=== PATIENT | female | born 1940 | race Caucasian/White ===

== ENCOUNTER 2017-03-21 07:39 | Inpatient (IN) ==
[2017-03-21] MEDS ORDERED: *HR* FentaNYL (PF) 100 MCG/2 ML VIAL ONE (08:04)
[2017-03-21] MEDS ORDERED: Dexamethasone 4 MG/ML VIAL ONE (08:04)
[2017-03-21] MEDS ORDERED: Lidocaine -MPF 2% 2 ML VIAL ONE (08:04)
[2017-03-21] MEDS ORDERED: Ondansetron 4 MG/2 ML VIAL ONE (08:04)
[2017-03-21] MEDS ORDERED: *HR* Succinylcholine 200 MG/10 ML VIAL IVP ONE (08:04)
[2017-03-21] MEDS ORDERED: *HR* Propofol 200 MG/20 ML VIAL IVP ONE (08:04)
[2017-03-21] MEDS ORDERED: *HR* Midazolam HCl 2 MG/2 ML VIAL ONE (08:04)
--- NOTE | 2017-03-21 08:19 | Anesthesia Evaluation PreOp ---
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: Denies Any Significant HX, Other (Bilat neuropathy (feet)) Other Medical History: Renal (CRD, Left Renal Mass), Diabetes Type II, Thyroid ( Hypothyroid), Other (Breast CA) Anesthesia History: No Prior Anesthetic Complications, Past Anesthesia (RCR, CTR , Tubal, mastectomy, trigger finger, nasal sx, skin, bx, heart ablation, D7C, Left THR, renal Bx) : No Alcohol Use: none Drug use: none Medications and Allergies Oxybutynin Chloride [Oxybutynin Chloride ER] 10 mg PO QPM 06/30/15 [History] Amiodarone [Cordarone] 200 mg PO DAILY tablet 07/03/15 [Rx] Atorvastatin [Lipitor] 40 mg PO HS tablet 07/03/15 [Rx] Levothyroxine [Synthroid] 75 mcg PO 0630 tablet 07/03/15 [Rx] Losartan [Cozaar] 100 mg PO DAILY #30 tablet 07/03/15 [Rx] Aspirin Enteric Coated [Aspirin EC] 81 mg PO DAILY 08/08/15 [History] Furosemide [Lasix] 40 mg PO HS 09/26/15 [History] Potassium Chloride [Klor-Con Sprinkle] 10 meq PO BID 09/26/15 [History] Calcium Citrate/Vitamin D3 [Calcium Citrate-Vit D3 Tablet] 1 each PO DAILY 03/31 [History] Cholecalciferol (Vitamin D3) [Vitamin D3] 2,000 unit PO DAILY 03/31/16 [History] Clindamycin HCl [Cleocin HCl] 300 mg PO DAILY 03/31/16 [History] Glucosamine Sulfate Dipot Chlr [Glucosamine] 500 mg PO DAILY 03/31/16 [History] Vit C/Vit E/Lutein/Min/[place]-3 [Ocuvite Softgel] 1 cap PO DAILY 03/31/16 [ History] Docusate [Colace] 100 mg PO BID #30 capsule 07/25/16 [Rx] Ferrous Sulfate 325 mg PO BIDWM #60 tablet 07/25/16 [Rx] Metoprolol [Lopressor] 50 mg PO BID #60 tablet 07/25/16 [Rx] OxyCODONE Immed Rel [Roxicodone 5 MG] 5 mg PO Q4HR PRN #60 tablet 07/26/16 [Rx] Rivaroxaban [Xarelto] 15 mg PO 1700 #30 tablet 07/26/16 [Rx] Allergies No Known Allergies Allergy (Verified 07/18/16 20:48) - Meds/Allergy Pre-op Review Medications Reviewed: Yes Allergies Reviewed: Yes Beta Blockers on Current Med List: Yes If Beta Blockers taken, Date/Time (Last Dose taken): 07:00 03/21/2017 Anesthesia Results - Labs Laboratory Tests 03/04/17 03/04/17 03/04/17 11:43 11:43 11:43 WBC 8.6 Hgb 12.7 Hct 38.7 Plt Count 268 INR 1.2 Sodium 141 Potassium 3.9 Chloride 104 Carbon Dioxide 22 BUN 35 H Creatinine 1.56 H - Imaging EKG: image reviewed (SB, prolonged QT) Anesthesia Exam O2 Sat Height 1.57 m Height 1.57 m Weight 99.79 kg Weight 99.79 kg O2 Sat by Pulse Oximetry 96 Vital Signs Temp Pulse Resp BP Pulse Ox 97.5 F L 62 18 135/66 96 03/21/17 08:00 03/21/17 08:00 03/21/17 08:00 03/21/17 08:00 03/21/17 08:00 Height: 5'2'' Weight: 220# NPO (# of Hours): > 8 hrs Pain Scale: 0 Pain Scale Used: Numeric (1 - 10) - HEENT Pupil (Motor): Pupils equal, EOMI Mallampati: III Teeth: Edentulous Oral Opening: Greater than 3 - CHAIR UPHOLSTERER LOC: Oriented CHAIR UPHOLSTERER Motor: Normal RUE, Normal LUE, Normal RLE, Normal LLE, Normal Face CHAIR UPHOLSTERER Sensory: Normal: RUE, LUE, RLE, LLE, Face - Cardiac Rhythm: Regular Murmur: None JVD: No Carotid Bruit: No - Pulmonary Breath Sounds: bilateral Clear Respiratory Effort: Symmetrical Anesthesia Assess/Plan ASA Score: 4 Modified [place] Scale for Level of Consciousness: Cooperative, oriented, and tranquil Anesthetic Plan: General Autologous Blood: Yes Monitoring Plan: Standard Monitors, A-Line Recovery Plan: PACU
[2017-03-21] MEDS ORDERED: CeFAZolin Pre 2,000 MG/100 ML 2,000 MG/100 ML BAG IVPB ONE (08:58)
[2017-03-21] MEDS ORDERED: 0.9 % Sodium Chloride 500 ML IVC SCH (09:00)
--- NOTE | 2017-03-21 09:06 | History & Physical Report ---
Date of Encounter: 03/21/17 Time of Encounter: 09:06 24 Hour HP Update - Instructions Instructions: If the History and Physical is less than 30 days old and was completed prior to A.M. admission and or procedure and has NOT been updated on calendar day of procedure please complete this update prior to performing procedure. - Update Patient reports changes in Medical Condition: No Changes in examination, assessment, or condition: No Changes in Medication: No Preop tests/diagnostics Reviewed: Yes Surgery Remains Indicated: Yes Consent for Planned Operative Procedure(s) Verified: Yes - Pre-Operative Checklist Preoperative Checklist Indicated: Yes Prophylactic Antibiotic Ordered: Yes Home Medications Include Beta Sedrick: Yes Is VTE Prophylaxis Indicated?: Yes
[2017-03-21] MEDS ORDERED: *HR* Rocuronium Bromide 50 MG/5 ML VIAL ONE (10:43)
[2017-03-21] MEDS ORDERED: Ondansetron 4 MG/2 ML VIAL IVP ONE (11:40)
[2017-03-21] MEDS ORDERED: *HR* Midazolam HCl 2 MG/2 ML VIAL IVP PRN (11:40)
[2017-03-21] MEDS ORDERED: *HR* Morphine 2 MG/ML SYRINGE IVP PRN (11:40)
[2017-03-21] MEDS ORDERED: *HR* Labetalol 100 MG/20 ML MDV IVP PRN (11:40)
[2017-03-21] MEDS ORDERED: *HR* HYDROmorphone (PF) 1 MG/ML SYRINGE IVP PRN (11:40)
[2017-03-21] MEDS ORDERED: *HR* HYDROmorphone 2 MG/ML SYRINGE ONE (13:09)
--- NOTE | 2017-03-21 13:52 | Operative Note ---
Date of procedure: 03/21/17 Pre-op diagnosis: Left renal mass Post-op diagnosis: same Procedure: Left hand-assisted laparoscopic nephrectomy. Implants: 16 Green[place]ic Watters catheter. Complications: Splenic capsule tear. Anesthesia: PAPO Surgeon: Saturnino Anguiano Estimated blood loss (cc): 100 Specimen: left kidney Condition: stable Disposition: PACU Procedure in Detail: Indications: Kimber is a 76-year-old woman who has a left renal mass. This showed enhancement on a CT scan. She elected to undergo a left hand-assisted laparoscopic radical nephrectomy. She was aware of the risks of the surgery which include but are not limited to bleeding, infection, injury to other structures, need for further procedures, risk of benign disease, risk of renal insufficiency, DVT, PE, and the risk of anesthesia. She is willing to proceed. Procedure: After informed consent was obtained the patient was brought back to the operating room and placed in the supine position. A timeout was performed. Gen. anesthesia was then administered and an endotracheal tube was placed. Appropriate IV access was obtained. A Watters catheter was placed. She was then placed in the flank position. Her left side was up. All pressure points were padded. She was well secured to the table. She was then prepped and draped in the usual sterile fashion. A 8 cm subcostal incision was then made. Subcutaneous tissues were dissected down using cautery. The fascia was incised using cautery. The muscle layers were dissected down until the peritoneum was identified. It was grasped and opened purposefully using Metzenbaum scissors. Once I entered into the peritoneum there appeared to be no evidence of bowel injury. The rest of the peritoneum was opened using electrocautery. I was able to place my hand into the wound. The GelPort was then inserted. Insufflation was then achieved. We then marked out our incision lateral and superior to the umbilicus. An incision was made and a 12 mm port was placed. Another incision was made lateral to this and another 12 mm port was placed. The bowel was reflected off the kidney along the white line of Toldt. Once the bowel was reflected medially I dissected the lower pole of the kidney identified the ureter. This was reflected anteriorly and the gonadal vein was then placed medial. Dissection was then taken superiorly to the hilum. The lower pole artery was identified and this was controlled with the vascular stapler. A second renal artery was identified superior to the renal vein and this was taken with the stapler as well. The renal vein was then taken with the stapler. The lateral attachments of the kidney were then dissected off using the Harmonic scalpel. The superior attachments to the kidney were dissected using the Harmonic scalpel as well. During this portion appeared that the splenic capsule tear had occurred. I placed a lap pad along the spleen and completed the removal of the kidney. The kidney was taken out through the wound protector. There appeared to be in minimal amount of bleeding from the splenic capsule. I placed FloSeal around the tear and then covered it using a Surgicel. Hemostasis appeared to be adequate. The pressure was brought down to 5 mmHg. No further significant bleeding was noted. The hilum was well secured. Using the Endo Close device the 212 mm ports were closed using an 0 Vicryl suture. The ports removed as was the GelPort. The peritoneal incision was then closed in a running fashion using an 0 Vicryl suture. The wound was irrigated. The fascia was closed in an interrupted fashion using 0 Vicryl suture. The wound was irrigated again. Alisha's layer was closed in a running fashion using 3-0 Vicryl suture. The skin was closed using a 4-0 Monocryl suture in a subcutaneous fashion. The port sites were closed using 4-0 Monocryl as well. The abdomen was then washed and dried and Dermabond was applied to the wounds. The patient was then awakened from general anesthesia and brought to recovery room in good condition. All sponge, needle, and instrument counts were correct.
[2017-03-21] MEDS ORDERED: Albuterol 2.5 MG/3 ML NEBULIZER ONE (15:27)
[2017-03-21] MEDS ORDERED: Albuterol 2.5 MG/3 ML NEBULIZER IH ONE (15:29)
--- NOTE | 2017-03-21 15:54 | Anesthesia Evaluation Post Op ---
Date of Encounter: 03/21/17 Time of Encounter: 16:00 - Vital Signs Vital Signs: Selected Entries 03/21/17 15:39 Pulse Rate 72 Respiratory Rate 18 Blood Pressure 153/85 O2 Sat by Pulse Oximetry 91 Oxygen Flow Rate (LPM) 4 - Lungs Lungs: Clear Ascult./Percussion - Airway Airway: Non-obstructed - Cardiovascular Regular Rate - Mental Status Mental Status: Sedated (Drowsy, but answers questions appropriately.) - Pain Pain Scale: 3 Pain Scale used: Numeric (1 - 10) - Nausea Vomiting Nausea Vomiting: Not Present - Hydration Hydration: NPO - Discharge PostOp Status: Transfer Patient to floor (Patient sleepy, but arousable. Maintaining O2 sats above 90-92% on 4 L/O2. Had atelectasis on pre op x ray. Will require spirometry and aggressive pulmonary toilet postoperatively.)
[2017-03-21] MEDS ORDERED: Naloxone 0.4 MG/ML INJ IVP PRN (16:13)
[2017-03-21] MEDS ORDERED: *HR* Promethazine 25 MG/ML VIAL IV PRN (16:13)
[2017-03-21] MEDS ORDERED: Ondansetron 4 MG/2 ML VIAL IVP PRN (16:13)
[2017-03-21] MEDS ORDERED: Promethazine 25 MG in 0.9 % Sodium Chloride 50 ML IVPB PRN (16:19)
[2017-03-21] MEDS: *HR* HYDROmorphone (PF) 1 MG/ML SYRINGE IVP PRN ×2 (17:11→20:11)
[2017-03-21] MEDS: 0.9 % Sodium Chloride 1,000 ML IVC SCH (17:12)
[2017-03-21] MEDS: ceFAZolin 2,000 MG in D5% in Water 100 ML IVPB SCH (20:10)
[2017-03-22] MEDS: 0.9 % Sodium Chloride 1,000 ML IVC SCH (01:47)
[2017-03-22] MEDS: ceFAZolin 2,000 MG in D5% in Water 100 ML IVPB SCH (01:47)
[2017-03-22] MEDS: Acetaminophen 325 MG TABLET PO PRN (01:51)
[2017-03-22 03:45] LABS: Basophils % 0.1 %; Hemoglobin 8.7 g/dL (11.5-15.4); Immature Granulocytes % 0.6 % (0-4); Lymphocytes # 0.9 K/mcL (0.6-4.6); Lymphocytes % 8.4 %; Mean Corpuscular HGB Conc 32.2 g/dL (31.6-35.5); Mean Corpuscular Hemoglobin 32.2 pg (28.0-33.3); Mean Platelet Volume 9.8 fL (9.4-12.4); Monocytes # 1.2 K/mcL (0.0-1.3); Monocytes % 10.8 %; Neutrophils # 8.6 K/mcL (1.6-8.9); Platelet Count 228 K/mcL (140-400); Red Cell Distribution Width 14.3 % (11.5-14.5); Segmented Neutrophils % 80.1 %
[2017-03-22 03:57] LABS: Potassium 5.1 mEq/L (3.5-4.5)
[2017-03-22] MEDS ORDERED: Metoclopramide 10 MG in 0.9 % Sodium Chloride 50 ML IVPB PRN (07:48)
[2017-03-22] MEDS ORDERED: Promethazine 25 MG in 0.9 % Sodium Chloride 50 ML IVPB PRN (07:51)
[2017-03-22] MEDS ORDERED: 0.9 % Sodium Chloride 500 ML IVC ONE ×2 (07:51→09:52)
--- NOTE | 2017-03-22 07:56 | Urology Progress Note ---
Date of Encounter: 03/22/17 Time of Encounter: 07:52 - Assessment and Plan (1) Renal mass Current Visit: Yes Status: Acute Assessment and plan: Postop day #1 status post left hand-assisted laparoscopic nephrectomy. 1. I will give her a bolus of normal saline given her lower blood pressure today. I'll repeat a H&H this afternoon to evaluate for bleeding issues. She did have a small splenic capsule tear which seemed to be well controlled by the end of the case. 2. Clear liquid diet. Await return of bowel function. 3. I will continue her Watters catheter to monitor her urine output closely. 4. Given her slightly lower blood pressure I will hold off on her antihypertensive medication including her beta seth. 5. Continue SCDs for prophylaxis. We'll hold off on subcutaneous heparin for now given the lowering of her hematocrit. 6. Ambulate 3 times per day. I will obtain a PT consult today. (2) CKD (chronic kidney disease), stage III Current Visit: No Status: Chronic Assessment and plan: We'll follow creatinine and urine output closely. (3) Obesity Current Visit: No Status: Chronic Qualifiers: Qualified Code(s): E66.01 - Morbid (severe) obesity due to excess calories Progress Note Narrative: Status post left hand-assisted laparoscopic radical nephrectomy. Postoperative day #1. Pain is controlled this morning. No shortness of breath. No chest pain. Blood pressure was low overnight. Hematocrit dropped to 27 this morning. She denies any lightheadedness or dizziness. She reports some nausea. Objective Initial Vital Signs Temp Pulse Resp BP Pulse Ox 97.5 F L 62 18 135/66 96 03/21/17 08:00 03/21/17 08:00 03/21/17 08:00 03/21/17 08:00 03/21/17 08:00 - General physical appearance Present: well developed, well nourished, no distress - Respiratory Present: normal respiratory effort - Abdomen Present: soft, surgical scars (Incisions are clean dry and intact. Abdomen is mildly distended.) - Genitourinary Urine Appearance: Present: Clear - Labs 03/22/17 03:06 03/22/17 03:06 Diabetes panel 03/22/17 Range/Units 03:06 Sodium 139 (136-145) mEq/L Potassium 5.1 H (3.5-4.5) mEq/L Chloride 107 (98-109) mEq/L Carbon Dioxide 23 (19-29) mEq/L BUN 28 H (7-20) mg/dL Creatinine 1.73 H (0.57-1.11) mg/dL Glucose 219 H (70-99) mg/dL Calcium 8.0 L (8.6-10.8) mg/dL Calcium panel 03/22/17 Range/Units 03:06 Calcium 8.0 L (8.6-10.8) mg/dL Pituitary panel 03/22/17 Range/Units 03:06 Sodium 139 (136-145) mEq/L Potassium 5.1 H (3.5-4.5) mEq/L Chloride 107 (98-109) mEq/L Carbon Dioxide 23 (19-29) mEq/L BUN 28 H (7-20) mg/dL Creatinine 1.73 H (0.57-1.11) mg/dL Glucose 219 H (70-99) mg/dL Calcium 8.0 L (8.6-10.8) mg/dL Adrenal panel 03/22/17 Range/Units 03:06 Sodium 139 (136-145) mEq/L Potassium 5.1 H (3.5-4.5) mEq/L Chloride 107 (98-109) mEq/L Carbon Dioxide 23 (19-29) mEq/L BUN 28 H (7-20) mg/dL Creatinine 1.73 H (0.57-1.11) mg/dL Glucose 219 H (70-99) mg/dL Calcium 8.0 L (8.6-10.8) mg/dL - VTE Documentation of Mechanical Device: Intermittent pneumatic compression device Consult Discharge Plan - Plan Referrals: Wade Waters MD [Primary Care Provider] -
[2017-03-22] MEDS: D5% in 0.45% NACL 1,000 ML IVC SCH ×2 (09:30→18:07)
[2017-03-22] MEDS ORDERED: 0.9 % Sodium Chloride 500 ML ONE (09:55)
[2017-03-22 10:40] LABS: Hematocrit 25.3 % (35.3-44.9)
--- NOTE | 2017-03-22 11:00 | Event Note ---
Date of Encounter: 03/22/17 Time of Encounter: 10:59 BP has remained low. Repeat H&H showed drop from 27 to [address] of the abdomen/pelvis without contrast. Will request 2 units prbc transfusion.
[2017-03-22] MEDS: Ondansetron 4 MG/2 ML VIAL IVP PRN ×2 (12:46→21:57)
[2017-03-22] MEDS: *HR* HYDROmorphone (PF) 1 MG/ML SYRINGE IVP PRN ×2 (14:14→21:57)
[2017-03-22 17:59] LABS: Hematocrit 23.9 % (35.3-44.9); Hemoglobin 7.7 g/dL (11.5-15.4)
[2017-03-22] MEDS: *HR* OxyCODONE Immed Rel 5 MG TABLET PO PRN (20:28)
[2017-03-22 21:32] LABS: Basophils % 0.3 %; Eosinophils % 0.2 %; Hematocrit 26.1 % (35.3-44.9); Hemoglobin 8.7 g/dL (11.5-15.4); Immature Granulocytes % 1.4 % (0-4); Lymphocytes # 1.7 K/mcL (0.6-4.6); Lymphocytes % 13.2 %; Mean Corpuscular HGB Conc 33.3 g/dL (31.6-35.5); Mean Corpuscular Hemoglobin 31.4 pg (28.0-33.3); Mean Corpuscular Volume 94.2 fL (83.0-100.0); Mean Platelet Volume 9.9 fL (9.4-12.4); Monocytes # 1.9 K/mcL (0.0-1.3); Monocytes % 15.1 %; Neutrophils # 8.8 K/mcL (1.6-8.9); Nucleated Red Blood Cells 0.2 /100 WBC (0); Platelet Count 157 K/mcL (140-400); Red Blood Count 2.77 M/mcL (3.82-4.97); Red Cell Distribution Width 16.1 % (11.5-14.5); Segmented Neutrophils % 69.8 %
[2017-03-23] MEDS: D5% in 0.45% NACL 1,000 ML IVC SCH ×3 (02:13→16:52)
[2017-03-23 04:48] LABS: Hematocrit 24.6 % (35.3-44.9); Hemoglobin 8.3 g/dL (11.5-15.4); Mean Corpuscular HGB Conc 33.7 g/dL (31.6-35.5); Mean Corpuscular Hemoglobin 31.9 pg (28.0-33.3); Mean Corpuscular Volume 94.6 fL (83.0-100.0); Mean Platelet Volume 9.6 fL (9.4-12.4); Platelet Count 159 K/mcL (140-400); Red Cell Distribution Width 16.8 % (11.5-14.5)
[2017-03-23] MEDS: Ondansetron 4 MG/2 ML VIAL IVP PRN ×2 (04:58→13:26)
[2017-03-23] MEDS: *HR* HYDROmorphone (PF) 1 MG/ML SYRINGE IVP PRN (04:58)
[2017-03-23 05:00] LABS: Calcium 7.8 mg/dL (8.6-10.8); Magnesium 1.7 mg/dL (1.6-2.6); Phosphorous 2.9 mg/dL (2.3-4.7); Potassium 4.4 mEq/L (3.5-4.5)
--- NOTE | 2017-03-23 08:28 | Urology Progress Note ---
Date of Encounter: 03/23/17 Time of Encounter: 08:25 - Assessment and Plan (1) Renal mass Current Visit: Yes Status: Acute Assessment and plan: s/p left nephrectomy with post-operative spleen subcapsular hematoma. 1. Will repeat H&H this afternoon. Consider repeat transfusion if necessary. General surgery consult is pending. 2. Continue clears for now. Await return of bowel function. 3. OOB . 4. Continue cranes catheter to closely monitor urine output. Urine output seems to be improving. (2) CKD (chronic kidney disease), stage III Current Visit: No Status: Chronic Assessment and plan: Creatinine has risen to 1.86. UOP seems to be improved this morning. Will repeat labs tomorrow. (3) Obesity Current Visit: No Status: Chronic Qualifiers: Obesity type: unspecified obesity type Qualified Code(s): E66.9 - Obesity, unspecified (4) Spleen hematoma Current Visit: Yes Status: Acute Assessment and plan: Follow H&H. Hemodynamically stable. Await general surgery consult. Qualifiers: Qualified Code(s): S36.029A - Unspecified contusion of spleen, initial encounter (5) Atrial fibrillation with rapid ventricular response Current Visit: Yes Status: Acute Assessment and plan: Cardiology consult ordered. Progress Note Narrative: POD #2 s/p left hand assisted lap nephrectomy. Yesterday, she had hypotension. H&H trickled down and she was hypotensive. I obtained a CT scan which showed a spleen injury with a subcapsular hematoma. She received 2 units of blood. This morning her HR was elevated and she appears to be in Atrial fibrillation with rapid ventricular rate. She says her pain is controlled. No shortness of breath, no chest pain. No lightheadedness. Feels some nausea. Hasn't ambulated yet. Objective Initial Vital Signs Temp Pulse Resp BP Pulse Ox 97.5 F L 62 18 135/66 96 03/21/17 08:00 03/21/17 08:00 03/21/17 08:00 03/21/17 08:00 03/21/17 08:00 - General physical appearance Present: well developed, well nourished - Respiratory Present: normal respiratory effort - Abdomen Present: tender, wound (Mild distension, incisions are c, d, i.) - Genitourinary Urine Appearance: Present: Clear - Labs 04/30/17 04:34 03/23/17 04:34 Diabetes panel 03/23/17 Range/Units 04:34 Sodium 135 L (136-145) mEq/L Potassium 4.4 (3.5-4.5) mEq/L Chloride 105 (98-109) mEq/L Carbon Dioxide 23 (19-29) mEq/L BUN 31 H (7-20) mg/dL Creatinine 1.86 H (0.57-1.11) mg/dL Glucose 186 H (70-99) mg/dL Calcium 7.8 L (8.6-10.8) mg/dL Calcium panel 03/23/17 Range/Units 04:34 Calcium 7.8 L (8.6-10.8) mg/dL Phosphorus 2.9 (2.3-4.7) mg/dL Pituitary panel 03/23/17 Range/Units 04:34 Sodium 135 L (136-145) mEq/L Potassium 4.4 (3.5-4.5) mEq/L Chloride 105 (98-109) mEq/L Carbon Dioxide 23 (19-29) mEq/L BUN 31 H (7-20) mg/dL Creatinine 1.86 H (0.57-1.11) mg/dL Glucose 186 H (70-99) mg/dL Calcium 7.8 L (8.6-10.8) mg/dL Adrenal panel 03/23/17 Range/Units 04:34 Sodium 135 L (136-145) mEq/L Potassium 4.4 (3.5-4.5) mEq/L Chloride 105 (98-109) mEq/L Carbon Dioxide 23 (19-29) mEq/L BUN 31 H (7-20) mg/dL Creatinine 1.86 H (0.57-1.11) mg/dL Glucose 186 H (70-99) mg/dL Calcium 7.8 L (8.6-10.8) mg/dL - VTE Documentation of Mechanical Device: Intermittent pneumatic compression device Consult Discharge Plan - Plan Referrals: Wade Waters MD [Primary Care Provider] -
[2017-03-23] MEDS ORDERED: Dextrose Gel 15 GM PO PRN ×2 (08:37)
[2017-03-23] MEDS ORDERED: D5% in Water 1,000 ML IVC PRN (08:37)
[2017-03-23] MEDS ORDERED: *HR* Dextrose 50 % in Water (Syg) 50 ML SYRINGE IVP PRN (08:37)
[2017-03-23] MEDS: Acetaminophen 325 MG TABLET PO PRN (08:57)
--- NOTE | 2017-03-23 09:52 | General Surgery Consult Note ---
Date of Encounter: 03/23/17 Time of Encounter: 09:49 Assessment and Plan (1) Spleen hematoma Current Visit: Yes Status: Acute I explained to the patient that I had the opportunity to personally evaluate the CT scan images and report. I agree with conservative treatment of the hematoma with continued tracking of her hemoglobin and hematocrit and consideration for repeat CT scan in the a.m. so we can compare a follow-up CT scan 48 hours later after the initial CAT scan. This will help to prove stability of the hematoma. Qualifiers: Encounter type: initial encounter Qualified Code(s): S36.029A - Unspecified contusion of spleen, initial encounter History of Present Illness Consult date: 03/23/17 Reason for consult: other (Splenic hematoma) Requesting physician: Saturnino Anguiano History of present illness: The patient is a 76-year-old female with a past medical history significant for hypertension, atrial fibrillation, CKD, and artritis, who underwent a left hand- assisted laparoscopic nephrectomy due to a left renal mass on 03/13/2017 was noted to have decreased blood count postoperatively with mild hypotension noted. Blood loss during the operative case was approximately 100 mL. The surgical course was notable for the identification of a noted splenic tear which was controlled by packing the area with sponges a reevaluation which did not show any evidence of active bleed per urology. Because of the hemodynamic change the patient was given fluid boluses and a CT scan of the abdomen and pelvis performed without IV contrast was performed which demonstrated a large splenic hematoma. I have been asked to evaluate the patient due to the large splenic hematoma and concern for the need for intervention. Currently the patient does admit to some left upper quadrant abdominal pain that appears to be more incisional in nature. She denies any dizziness and has admitted to some nausea. She has had a bowel movement since her surgical procedure; she normally has a bowel movement once per day. Past Med Surg Social Fam HX - Past Medical History Medical history: arthritis, atrial fibrillation, cancer, hyperlipidemia, hypertension, malignancy, renal disease, thyroid disease, other Psychiatric history: no psych history - Past Surgical History Surgical History: breast surgery, cancer surgery, cataract, hip replacement, orthopedic, other, sinus surgery, other - Social History Smoking Status: Never smoker Smokeless Tobacco Status: No Alcohol use: none Drug use: none - Family History Mother History Unknown: Yes Hx Family Neurologic Disorders: Yes (aneurysm) Medications and Allergies Oxybutynin Chloride [Oxybutynin Chloride ER] 10 mg PO QPM 06/30/15 [History] Atorvastatin [Lipitor] 40 mg PO HS tablet 07/03/15 [Rx] Losartan [Cozaar] 100 mg PO DAILY #30 tablet 07/03/15 [Rx] Aspirin Enteric Coated [Aspirin EC] 81 mg PO DAILY 08/08/15 [History] Furosemide [Lasix] 40 mg PO HS 09/26/15 [History] Potassium Chloride [Klor-Con Sprinkle] 10 meq PO BID 09/26/15 [History] Calcium Citrate/Vitamin D3 [Calcium Citrate-Vit D3 Tablet] 1 each PO DAILY 03/31 [History] Cholecalciferol (Vitamin D3) [Vitamin D3] 2,000 unit PO DAILY 03/31/16 [History] Clindamycin HCl [Cleocin HCl] 300 mg PO DAILY 03/31/16 [History] Glucosamine Sulfate Dipot Chlr [Glucosamine] 500 mg PO DAILY 03/31/16 [History] Vit C/Vit E/Lutein/Min/[place]-3 [Ocuvite Softgel] 1 cap PO DAILY 03/31/16 [ History] Ferrous Sulfate 325 mg PO BIDWM #60 tablet 07/25/16 [Rx] Rivaroxaban [Xarelto] 15 mg PO 1700 #30 tablet 07/26/16 [Rx] Metoprolol [Lopressor] 25 mg PO BID 03/21/17 [History] Vit C/Vit E/Lutein/Min/[place]-3 [Ocuvite Softgel] 1 each PO DAILY 03/21/17 [ History] Allergies No Known Allergies Allergy (Verified 03/21/17 08:34) Review of Systems All systems PM: reviewed and no additional remarkable complaints except as stated All systems PM: A 10-system review of systems was performed and is negative for pertinent findings except as documented above in the HPI. General Surgery Exam Initial Vital Signs Temp Pulse Resp BP Pulse Ox 97.5 F L 62 18 135/66 96 03/21/17 08:00 03/21/17 08:00 03/21/17 08:00 03/21/17 08:00 03/21/17 08:00 - Eyes PERRL, normal ocular movement - Respiratory normal expansion, normal respiratory effort - Cardiovascular Cardiovascular exam: Present: RRR, no murmurs/rubs/gallops - Abdomen Abdomen general surgery: Present: bowel sounds present (scant), soft, tender ( Noted LUQ incisional tenderness; incision CDI. No erythema.) - Neurologic Present: CN 2-12 grossly intact - Musculoskeletal Present: other (No clubbing, cyanosis, or edema.) - Psychiatric Psychiatric general surgery: Present: A&Ox3 Exam Initial Vital Signs Temp Pulse Resp BP Pulse Ox 97.5 F L 62 18 135/66 96 03/21/17 08:00 03/21/17 08:00 03/21/17 08:00 03/21/17 08:00 03/21/17 08:00 Results - Labs 03/23/17 15:59 03/23/17 04:34 Abnormal lab results WBC 12.7 K/mcL (4.3-11.1) H 03/23/17 04:34 RBC 2.60 M/mcL (3.82-4.97) L 03/23/17 04:34 Hgb 8.3 g/dL (11.5-15.4) L 03/23/17 04:34 Hct 24.6 % (35.3-44.9) L 03/23/17 04:34 RDW 16.8 % (11.5-14.5) H 03/23/17 04:34 Monocytes # 1.9 K/mcL (0.0-1.3) H 03/22/17 21:23 Nucleated RBCs/100 WBC 0.2 /100 WBC (0) H 03/22/17 21:23 Sodium 135 mEq/L (136-145) L 03/23/17 04:34 BUN 31 mg/dL (7-20) H 03/23/17 04:34 Creatinine 1.86 mg/dL (0.57-1.11) H 03/23/17 04:34 Est GFR ( Amer) 32 (> 60) L 03/23/17 04:34 Est GFR (Non-Af Amer) 26 (> 60) L 03/23/17 04:34 Glucose 186 mg/dL (70-99) H 03/23/17 04:34 POC Glucose 174 (58-89) H 03/22/17 00:11 Calcium 7.8 mg/dL (8.6-10.8) L 03/23/17 04:34 Diabetes panel 03/23/17 Range/Units 04:34 Sodium 135 L (136-145) mEq/L Potassium 4.4 (3.5-4.5) mEq/L Chloride 105 (98-109) mEq/L Carbon Dioxide 23 (19-29) mEq/L BUN 31 H (7-20) mg/dL Creatinine 1.86 H (0.57-1.11) mg/dL Glucose 186 H (70-99) mg/dL Calcium 7.8 L (8.6-10.8) mg/dL Calcium panel 03/23/17 Range/Units 04:34 Calcium 7.8 L (8.6-10.8) mg/dL Phosphorus 2.9 (2.3-4.7) mg/dL Pituitary panel 03/23/17 Range/Units 04:34 Sodium 135 L (136-145) mEq/L Potassium 4.4 (3.5-4.5) mEq/L Chloride 105 (98-109) mEq/L Carbon Dioxide 23 (19-29) mEq/L BUN 31 H (7-20) mg/dL Creatinine 1.86 H (0.57-1.11) mg/dL Glucose 186 H (70-99) mg/dL Calcium 7.8 L (8.6-10.8) mg/dL Adrenal panel 03/23/17 Range/Units 04:34 Sodium 135 L (136-145) mEq/L Potassium 4.4 (3.5-4.5) mEq/L Chloride 105 (98-109) mEq/L Carbon Dioxide 23 (19-29) mEq/L BUN 31 H (7-20) mg/dL Creatinine 1.86 H (0.57-1.11) mg/dL Glucose 186 H (70-99) mg/dL Calcium 7.8 L (8.6-10.8) mg/dL All other labs normal. - Imaging CT scan - abdomen: report reviewed, image reviewed (Noted splenic hematoma with a small amount of fluid around the liver. No large quantity of intra-abdominal fluid collection noted. CT scan was performed without contrast due to the patient's recent nephrectomy and elevated creatinine.) Consult Discharge Plan - Plan Referrals: Wade Waters MD [Primary Care Provider] -
[2017-03-23] MEDS: Insulin LISPRO 300 UNITS/3 ML VIAL SQ SCH ×2 (11:40→16:53)
[2017-03-23] MEDS: *HR* OxyCODONE Immed Rel 5 MG TABLET PO PRN (11:40)
--- NOTE | 2017-03-23 11:55 | Cardiology Consult Note ---
Date of Encounter: 03/23/17 Time of Encounter: 11:52 Assessment and Plan (1) Atrial fibrillation with rapid ventricular response Current Visit: Yes Status: Acute Known hx of PAF, failed Sotalol in the past and amiodarone was stopped due to lung toxicity. PO meds were held including BB post op. Pt was initially SR, went into A-fib RVR early this AM. She is s/p nephrectomy and subsequent splenic tear/hematoma. Pt asymptomatic while in A-Fib. K 4.4, Mag 1.7--will replace. Check TSH. HR currently 130s-140s. Resume home BB. Start cardizem gtt. Titrate to keep HR < 100. Previous to surgery was anticoagulated on Xarelto, now with splenic hematoma anticoagulation is on hold. Resuming will be based on surgery recommendations. Echo 08/2015 EF preserved 60-65%. Stress test 08/2015 negative for ischemia or infarct. Recommend outpt sleep study. Discussion w patient/family: The assessment and plan as outlined above was discussed with the patient and/or family members who expressed understanding and agreement. All questions were answered. Thank you for involving us in the care of your patient. Please call with any questions. I will discuss all the above with Dr. Garcia and make changes as necessary. History of Present Illness Consult date: 03/23/17 Requesting physician: Saturnino Anguiano Consult reason: A-Fib RVR History of present illness: Ms. Carpio is a 76 year old female with PMH of HTN, PAF on Xarelto, CKD, breast ca s/p mastectomy and arthritis, who underwent a left hand-assisted laparoscopic nephrectomy due to a left renal mass on 03/13/2017 was noted to have decreased blood count postoperatively with mild hypotension noted. The surgical course was notable for the identification of a noted splenic tear. CT scan of the abdomen and pelvis performed without IV contrast was performed which demonstrated a large splenic hematoma. Pt's PO meds had been held. Pt went from sinus to A-Fib with RVR this AM, current HR 130s-140s at bedside. Per pt, she is asymptomatic when in A-Fib, denies chest pain or dyspnea. Reviewed Dr. Castillo notes, who she follows with. Hx of failed Sotalol and hx of amiodarone lung toxicity, currently only on PO BB Lopressor 25mg BID at home. Prior CV testing: Echo 08/30/15: EF 60-65%, borderline concentric LVH, mild-moderate LA size, trace AR. Nuclear Stress 08/30/15: Negative for ischemia or infarct. Gated EF 58%. Past Med Surg Social Fam HX - Past Medical History Medical history: arthritis, atrial fibrillation, cancer, hyperlipidemia, hypertension, malignancy, renal disease, thyroid disease, other Psychiatric history: no psych history - Past Surgical History Surgical History: breast surgery, cancer surgery, cataract, hip replacement, orthopedic, other, sinus surgery, other - Social History Smoking Status: Never smoker Smokeless Tobacco Status: No Alcohol use: none Drug use: none - Family History Mother History Unknown: Yes Hx Family Neurologic Disorders: Yes (aneurysm) Medications and Allergies Oxybutynin Chloride [Oxybutynin Chloride ER] 10 mg PO QPM 06/30/15 [History] Atorvastatin [Lipitor] 40 mg PO HS tablet 07/03/15 [Rx] Losartan [Cozaar] 100 mg PO DAILY #30 tablet 07/03/15 [Rx] Aspirin Enteric Coated [Aspirin EC] 81 mg PO DAILY 08/08/15 [History] Furosemide [Lasix] 40 mg PO HS 09/26/15 [History] Potassium Chloride [Klor-Con Sprinkle] 10 meq PO BID 09/26/15 [History] Calcium Citrate/Vitamin D3 [Calcium Citrate-Vit D3 Tablet] 1 each PO DAILY 03/31 [History] Cholecalciferol (Vitamin D3) [Vitamin D3] 2,000 unit PO DAILY 03/31/16 [History] Clindamycin HCl [Cleocin HCl] 300 mg PO DAILY 03/31/16 [History] Glucosamine Sulfate Dipot Chlr [Glucosamine] 500 mg PO DAILY 03/31/16 [History] Vit C/Vit E/Lutein/Min/[place]-3 [Ocuvite Softgel] 1 cap PO DAILY 03/31/16 [ History] Ferrous Sulfate 325 mg PO BIDWM #60 tablet 07/25/16 [Rx] Rivaroxaban [Xarelto] 15 mg PO 1700 #30 tablet 07/26/16 [Rx] Metoprolol [Lopressor] 25 mg PO BID 03/21/17 [History] Vit C/Vit E/Lutein/Min/[place]-3 [Ocuvite Softgel] 1 each PO DAILY 03/21/17 [ History] Allergies No Known Allergies Allergy (Verified 03/21/17 08:34) All Systems Review: A 10-system review of systems was performed and is negative for pertinent findings except as documented above in the HPI. - Gastrointestinal Gastrointestinal: abdominal pain, nausea Physical Examination Vital Signs, Last 4 Hours Temp Pulse Resp BP Pulse Ox 03/23/17 11:25 98.4 F 03/23/17 10:44 121 20 142/80 97 03/23/17 08:00 143 Vital Signs Temp Pulse Resp BP Pulse Ox 03/23/17 11:25 98.4 F 03/23/17 10:44 121 20 142/80 97 03/23/17 08:00 143 03/23/17 07:24 99.3 F 123 18 137/70 95 03/23/17 04:42 98.6 F 104 19 146/61 93 03/23/17 04:30 104 03/23/17 00:14 98.8 F 104 18 118/58 93 03/22/17 20:00 98.3 F 101 16 115/66 93 03/22/17 18:55 98.4 F 93 16 124/61 96 03/22/17 18:09 97.9 F 92 14 127/53 96 03/22/17 17:58 98.2 F 93 16 124/54 96 03/22/17 16:25 97.7 F 81 16 91/39 96 03/22/17 15:50 98.4 F 80 16 108/52 96 03/22/17 15:35 87 03/22/17 13:50 97.7 F 88 16 110/50 96 03/22/17 13:37 97.7 F 87 15 113/48 95 Intake and Output 03/22/17 03/23/17 03/23/17 23:59 07:59 15:59 Intake Total 1601 / 1601 1000 / 1000 1000 / 1000 Output Total 200 / 200 350 / 350 180 / 180 Balance 1401 / 1401 650 / 650 820 / 820 Intake: IV Fluids 1000 / 1000 1000 / 1000 1000 / 1000 D5% And 0.45% Nacl 1000 1000 / 1000 1000 / 1000 1000 / 1000 Ml Bag 1,000 ML @ 125 mls /hr IVC .Q8H [facility] Rx#: [id number] Blood Product 601 / 601 Rbcs Leuko Poor As-1 301 / 301 Unit [id number] Rbcs Leuko Poor As-1 300 / 300 Unit [id number] Output: Catheter 200 / 200 350 / 350 180 / 180 Other: Weight 100.6 kg Blood Glucose* 180 Patient Weight 03/23/17 23:59 Weight 100.6 kg General: Conversant, No Apparent Distress HEENT: Atraumatic, Normocephaly, Mucus Membranes Moist Neck: No JVD, Normal carotid pulses Cardiac: Other (irregularly irregular) Lungs: Normal Breath Sounds, No Wheeze, Rales, Rhonchi Neuro: Alert and responsive, No focal deficits noted Abdomen: Other (tenderness noted s/p surgery) Skin: No rashes noted on visualized skin Musculoskeletal: No Chest Wall Tenderness Extremities: No Clubbing, No Cyanosis, No Edema, Normal Pulses Results 03/23/17 04:34 03/23/17 04:34 Lab Results 03/22/17 03/22/17 03/23/17 17:52 21:23 04:34 WBC 12.6 H 12.7 H Hgb 7.7 L 8.7 L 8.3 L Hct 23.9 L 26.1 L 24.6 L Plt Count 157 159 Sodium Potassium Chloride Carbon Dioxide BUN Creatinine Glucose Calcium Magnesium 03/23/17 04:34 WBC Hgb Hct Plt Count Sodium 135 L Potassium 4.4 Chloride 105 Carbon Dioxide 23 BUN 31 H Creatinine 1.86 H Glucose 186 H Calcium 7.8 L Magnesium 1.7 Short CBC 03/23/17 03/22/17 03/22/17 Range/Units 04:34 21:23 17:52 WBC 12.7 H 12.6 H (4.3-11.1) K/mcL Hgb 8.3 L 8.7 L 7.7 L (11.5-15.4) g/dL Hct 24.6 L 26.1 L 23.9 L (35.3-44.9) % Plt Count 159 157 (140-400) K/mcL Neutrophils # 8.8 (1.6-8.9) K/mcL BMP 03/23/17 Range/Units 04:34 Sodium 135 L (136-145) mEq/L Potassium 4.4 (3.5-4.5) mEq/L Chloride 105 (98-109) mEq/L Carbon Dioxide 23 (19-29) mEq/L BUN 31 H (7-20) mg/dL Creatinine 1.86 H (0.57-1.11) mg/dL Glucose 186 H (70-99) mg/dL Calcium 7.8 L (8.6-10.8) mg/dL Active Medications Acetaminophen (Tylenol) 650 mg PO Q6HR PRN PRN Reason: Mild Pain/Fever Stop: 09/20/17 16:14 Last Admin: 03/23/17 08:57 Dose: 650 mg Atorvastatin Calcium (Lipitor) 40 mg PO HS RAAD Stop: 09/20/17 21:01 Last Admin: 03/22/17 21:52 Dose: Not Given Dextrose/Water (Dextrose 50% (Syg)) 25 ml IVP AD PRN PRN Reason: Hypoglycemia Stop: 09/22/17 08:38 Glucagon (Glucagen) 1 mg IM ONCE PRN PRN Reason: Hypoglycemia Stop: 09/22/17 08:38 Glucose (Gluctose) 15 gm PO ONCE PRN PRN Reason: Hypoglycemia Stop: 09/22/17 08:38 Glucose (Gluctose) 30 gm PO ONCE PRN PRN Reason: Hypoglycemia Stop: 09/22/17 08:38 Hydromorphone HCl (Dilaudid) 1 mg IVP Q1H PRN PRN Reason: Severe Pain 7-10 Stop: 09/20/17 16:14 Last Admin: 03/23/17 04:58 Dose: 1 mg Metoclopramide HCl 10 mg/ (Sodium Chloride) 52 mls @ 104 mls/hr IVPB Q8H PRN PRN Reason: nausea- 2nd line Stop: 09/21/17 08:01 Promethazine HCl 25 mg/ Sodium (Chloride) 51 mls @ 204 mls/hr IVPB Q8HR PRN PRN Reason: NAUSEA AND VOMITING - 3rd line Stop: 09/20/17 16:20 Dextrose/Sodium Chloride (D5% And 0.45% Nacl 1000 Ml Bag) 1,000 mls @ 125 mls/ hr IVC .Q8H [facility] Stop: 09/21/17 08:01 Last Admin: 03/23/17 10:15 Dose: 125 mls/hr Dextrose (Dextrose 5%) 1,000 mls @ 100 mls/hr IVC .Q10H PRN PRN Reason: HYPOGLYCEMIA Stop: 09/22/17 08:38 Insulin Human Lispro (Humalog) 0 units SQ Q6HR RAAD PRN Reason: Protocol Stop: 09/22/17 12:01 Naloxone HCl (Narcan) 0.4 mg IVP Q2MIN PRN PRN Reason: SEE COMMENTS Stop: 09/20/17 16:14 Ondansetron HCl (Zofran) 4 mg IVP Q6HR PRN PRN Reason: Nausea And Vomiting - 1st line Stop: 09/20/17 16:14 Last Admin: 03/23/17 04:58 Dose: 4 mg Oxycodone HCl (Roxicodone) 10 mg PO Q6HR PRN PRN Reason: Moderate pain 4-6 Stop: 09/20/17 16:14 Last Admin: 03/22/17 20:28 Dose: 10 mg - Imaging and Cardiology Stress Test: report reviewed Echo: report reviewed - EKG Interpretation EKG results cardiology: other (24 hour tele AVG HR 102, currently A-Fib RVR) Consult Discharge Plan - Plan Referrals: Wade Waters MD [Primary Care Provider] -
[2017-03-23] MEDS ORDERED: Magnesium Sulfate 2 GM in D5% in Water 100 ML IVPB ONE (13:27)
[2017-03-23 16:11] LABS: Hematocrit 23.9 % (35.3-44.9); Hemoglobin 7.9 g/dL (11.5-15.4)
--- NOTE | 2017-03-23 18:01 | Electrocardiograph Report ---
[address] [address] Test Date: 2017-03-23 Pat Name: Kimber Carpio Department: 110 Room: 10 Gender: F Health Information Internship: MRR : 1940 Requested By: Saturnino Anguiano Order Number: [id number] Reading MD: Cher Ferguson Measurements Intervals [place] Rate: 144 P: SD: 0 QRS: 5 QRSD: 81 T: 71 QT: 274 QTc: 357 Interpretive Statements ATRIAL FIBRILLATION WITH RAPID VENTRICULAR RESPONSE NONSPECIFIC ST \T\ T-WAVE ABNORMALITY ABNORMAL RHYTHM ECG Electronically Signed On 03-23-2017 18:00:37 EDT by Cher Ferguson
--- NOTE | 2017-03-23 18:01 | Electrocardiograph Report ---
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
[2017-03-24] MEDS: Insulin LISPRO 300 UNITS/3 ML VIAL SQ SCH ×4 (00:28→19:16)
[2017-03-24] MEDS: D5% in 0.45% NACL 1,000 ML IVC SCH ×3 (00:30→18:20)
[2017-03-24 04:04] LABS: Basophils % 0.3 %; Eosinophils # 0.1 K/mcL (0.0-0.6); Hematocrit 23.7 % (35.3-44.9); Hemoglobin 7.8 g/dL (11.5-15.4); Immature Granulocytes % 0.7 % (0-4); Lymphocytes # 1.8 K/mcL (0.6-4.6); Lymphocytes % 13.8 %; Mean Corpuscular HGB Conc 32.9 g/dL (31.6-35.5); Mean Corpuscular Hemoglobin 31.5 pg (28.0-33.3); Mean Corpuscular Volume 95.6 fL (83.0-100.0); Mean Platelet Volume 9.7 fL (9.4-12.4); Monocytes # 1.6 K/mcL (0.0-1.3); Monocytes % 12.3 %; Neutrophils # 9.6 K/mcL (1.6-8.9); Platelet Count 166 K/mcL (140-400); Red Blood Count 2.48 M/mcL (3.82-4.97); Red Cell Distribution Width 16.3 % (11.5-14.5); Segmented Neutrophils % 71.9 %
[2017-03-24 04:07] LABS: Calcium 7.7 mg/dL (8.6-10.8); Phosphorous 2.5 mg/dL (2.3-4.7); Potassium 4.6 mEq/L (3.5-4.5)
[2017-03-24 04:32] LABS: Thyroid Stimulating Hormone 2.52 mcIU/mL (0.350-4.840)
[2017-03-24] MEDS: *HR* HYDROmorphone (PF) 1 MG/ML SYRINGE IVP PRN ×2 (04:56→20:58)
--- NOTE | 2017-03-24 07:12 | Urology Progress Note ---
Date of Encounter: 03/24/17 Time of Encounter: 07:10 - Assessment and Plan (1) Renal mass Current Visit: Yes Status: Acute Assessment and plan: s/p left nephrectomy. POD #3. 1. Appreciate general surgery and cardiology support. 2. Continue clears. Ambulate 3x/day. 3. Continue catheter for now. Creatinine improved. Will give 20mg of lasix today. 4. Repeat CT this morning to assess for stability of spleen hematoma. 5. Continue monitoring H&H. 6. Continue as in patient. (2) CKD (chronic kidney disease), stage III Current Visit: No Status: Chronic (3) Obesity Current Visit: No Status: Chronic Qualifiers: Obesity type: unspecified obesity type Qualified Code(s): E66.9 - Obesity, unspecified (4) Spleen hematoma Current Visit: Yes Status: Acute Qualifiers: Encounter type: initial encounter Qualified Code(s): S36.029A - Unspecified contusion of spleen, initial encounter (5) Atrial fibrillation with rapid ventricular response Current Visit: Yes Status: Acute Progress Note Narrative: doing okay this morning. Some productive cough. H&H slightly lower 7.9->7.8 this morning. Cardiology consult obtained and she is on diltiazem. HR and BP stable. UOP improved. Tolerating clears, but no flatus. Objective Initial Vital Signs Temp Pulse Resp BP Pulse Ox 97.5 F L 62 18 135/66 96 03/21/17 08:00 03/21/17 08:00 03/21/17 08:00 03/21/17 08:00 03/21/17 08:00 - General physical appearance Present: well developed, well nourished, no distress - Respiratory Present: other (inspiratory wheeze) - Abdomen Present: soft (c,d,i. Mild distension and LUQ tenderness.) - Genitourinary Urine Appearance: Present: Clear - Labs 03/24/17 03:27 03/24/17 03:27 Diabetes panel 03/24/17 Range/Units 03:27 Sodium 130 L (136-145) mEq/L Potassium 4.6 H (3.5-4.5) mEq/L Chloride 104 (98-109) mEq/L Carbon Dioxide 18 L (19-29) mEq/L BUN 23 H (7-20) mg/dL Creatinine 1.61 H (0.57-1.11) mg/dL Glucose 163 H (70-99) mg/dL Calcium 7.7 L (8.6-10.8) mg/dL Thyroid panel 03/24/17 Range/Units 03:27 TSH 2.520 (0.350-4.840) mcIU/mL Calcium panel 03/24/17 Range/Units 03:27 Calcium 7.7 L (8.6-10.8) mg/dL Phosphorus 2.5 (2.3-4.7) mg/dL Pituitary panel 03/24/17 Range/Units 03:27 Sodium 130 L (136-145) mEq/L Potassium 4.6 H (3.5-4.5) mEq/L Chloride 104 (98-109) mEq/L Carbon Dioxide 18 L (19-29) mEq/L BUN 23 H (7-20) mg/dL Creatinine 1.61 H (0.57-1.11) mg/dL Glucose 163 H (70-99) mg/dL Calcium 7.7 L (8.6-10.8) mg/dL TSH 2.520 (0.350-4.840) mcIU/mL Adrenal panel 03/24/17 Range/Units 03:27 Sodium 130 L (136-145) mEq/L Potassium 4.6 H (3.5-4.5) mEq/L Chloride 104 (98-109) mEq/L Carbon Dioxide 18 L (19-29) mEq/L BUN 23 H (7-20) mg/dL Creatinine 1.61 H (0.57-1.11) mg/dL Glucose 163 H (70-99) mg/dL Calcium 7.7 L (8.6-10.8) mg/dL - VTE Documentation of Mechanical Device: Intermittent pneumatic compression device Consult Discharge Plan - Plan Referrals: Wade Waters MD [Primary Care Provider] -
[2017-03-24] MEDS: *HR* OxyCODONE Immed Rel 5 MG TABLET PO PRN (07:44)
--- NOTE | 2017-03-24 10:01 | Cardiology Progress Note ---
Date of Encounter: 03/24/17 Time of Encounter: 09:30 Assessment and Plan (1) Atrial fibrillation with rapid ventricular response Current Visit: Yes Status: Acute Known hx of PAF, failed Sotalol in the past and amiodarone was stopped due to lung toxicity. PO meds were held including BB post op. Pt was initially SR, went into A-fib RVR early this AM. She is s/p nephrectomy and subsequent splenic tear/hematoma. H/H continuing to decline this AM. Pt asymptomatic while in A-Fib. 12 hour tele: avg HR=84 afib. Will stop IV cardizem gtt and convert to long-acting. Previous to surgery was anticoagulated on Xarelto, now with splenic hematoma anticoagulation is on hold. Resuming will be based on surgery recommendations. Echo 08/2015 EF preserved 60-65%. Stress test 08/2015 negative for ischemia or infarct. Recommend outpt sleep study. No further inpatient Cardiology recommendations, will sign-off, please call with questions. Will coordinate outpatient appt. Discussion w patient/family: The assessment and plan as outlined above was discussed with the patient and/or family members who expressed understanding and agreement. All questions were answered. Thank you for involving us in the care of your patient. Please call with any questions. The patient was discussed and reviewed with Dr. Mclean; Cardiology will sign-off , follow-up in the outpatient setting with Dr. Castillo. Subjective Principal diagnosis: Afib with RVR, Nephrectomy, splenic hematoma Interval history: Seen and examined. Reports feels nauseated today, has noted increased wheezing. Denies any other CV symptoms including palpitations, shortness of breath, or chest discomfort. Objective Vital Signs, Last 4 Hours Temp Pulse Resp BP Pulse Ox 03/24/17 07:48 97.8 F 72 24 116/85 94 General: Conversant HEENT: Atraumatic, Normocephaly Cardiac: Other (irregularly irregular) Neuro: Alert and responsive Abdomen: Non-Tender, Other (distended) Skin: No rashes noted on visualized skin Musculoskeletal: No Chest Wall Tenderness Extremities: Normal Pulses, Other (non-pittting BLE edema) Results 03/24/17 03:27 03/24/17 03:27 Lab Results 03/23/17 03/24/17 03/24/17 15:59 03:27 03:27 WBC 13.4 H Hgb 7.9 L 7.8 L Hct 23.9 L 23.7 L Plt Count 166 Sodium 130 L Potassium 4.6 H Chloride 104 Carbon Dioxide 18 L BUN 23 H Creatinine 1.61 H Glucose 163 H Calcium 7.7 L Magnesium 2.0 TSH 2.520 Active Medications Acetaminophen (Tylenol) 650 mg PO Q6HR PRN PRN Reason: Mild Pain/Fever Stop: 09/20/17 16:14 Last Admin: 03/23/17 08:57 Dose: 650 mg Atorvastatin Calcium (Lipitor) 40 mg PO HS [facility] Stop: 09/20/17 21:01 Last Admin: 03/23/17 21:59 Dose: 40 mg Dextrose/Water (Dextrose 50% (Syg)) 25 ml IVP AD PRN PRN Reason: Hypoglycemia Stop: 09/22/17 08:38 Diltiazem HCl (Cardizem Cd) 120 mg PO DAILY [facility] Stop: 09/23/17 10:16 Hydromorphone HCl (Dilaudid) 1 mg IVP Q1H PRN PRN Reason: Severe Pain 7-10 Stop: 09/20/17 16:14 Last Admin: 03/24/17 04:56 Dose: 1 mg Metoclopramide HCl 10 mg/ (Sodium Chloride) 52 mls @ 104 mls/hr IVPB Q8H PRN PRN Reason: nausea- 2nd line Stop: 09/21/17 08:01 Promethazine HCl 25 mg/ Sodium (Chloride) 51 mls @ 204 mls/hr IVPB Q8HR PRN PRN Reason: NAUSEA AND VOMITING - 3rd line Stop: 09/20/17 16:20 Dextrose/Sodium Chloride (D5% And 0.45% Nacl 1000 Ml Bag) 1,000 mls @ 125 mls/ hr IVC .Q8H [facility] Stop: 09/21/17 08:01 Last Admin: 03/24/17 08:29 Dose: 125 mls/hr Dextrose (Dextrose 5%) 1,000 mls @ 100 mls/hr IVC .Q10H PRN PRN Reason: HYPOGLYCEMIA Stop: 09/22/17 08:38 Insulin Human Lispro (Humalog) 0 units SQ Q6HR [facility] PRN Reason: Protocol Stop: 09/22/17 12:01 Last Admin: 03/24/17 06:08 Dose: 4 units Metoprolol Tartrate (Lopressor) 25 mg PO BID [facility] Stop: 09/22/17 21:01 Last Admin: 03/24/17 08:29 Dose: 25 mg Naloxone HCl (Narcan) 0.4 mg IVP Q2MIN PRN PRN Reason: SEE COMMENTS Stop: 09/20/17 16:14 Ondansetron HCl (Zofran) 4 mg IVP Q6HR PRN PRN Reason: Nausea And Vomiting - 1st line Stop: 09/20/17 16:14 Last Admin: 03/23/17 13:26 Dose: 4 mg Oxycodone HCl (Roxicodone) 10 mg PO Q6HR PRN PRN Reason: Moderate pain 4-6 Stop: 09/20/17 16:14 Last Admin: 03/24/17 07:44 Dose: 10 mg - Imaging and Cardiology Other Results: 12 hour tele: avg HR=84 afib. No significant pause or event noted. - EKG Interpretation EKG results cardiology: personally reviewed - VTE Documentation of Mechanical Device: Intermittent pneumatic compression device Consult Discharge Plan - Plan Referrals: Wade Waters MD [Primary Care Provider] -
[2017-03-24] MEDS: Diltiazem CD (24hr) 120 MG CAPSULE PO SCH (11:53)
[2017-03-24] MEDS: Ondansetron 4 MG/2 ML VIAL IVP PRN (11:53)
--- NOTE | 2017-03-24 13:33 | General Surgery Progress Note ---
Date of Encounter: 03/25/17 Time of Encounter: 13:30 - Assessment and Plan (1) Spleen hematoma Current Visit: Yes Status: Acute I splayed to the patient and family that although her hemoglobin did decrease slightly it appears this may be mostly related to dilution due to her positive fluid balance. Agree with repeat CT scan today. Additionally, I cautioned the patient to carefully sip on her clear liquids that she is distended and I think she may be experiencing an ileus. Agree with continued IV fluid hydration. Qualifiers: Encounter type: subsequent encounter Qualified Code(s): S36.029D - Unspecified contusion of spleen, subsequent encounter Subjective Patient reports: other (The patient misses some nausea. Had one episode of vomiting. No flatus or bowel movements.) Objective Vital Signs - Last 8 Hours Temp Pulse Resp BP Pulse Ox 03/24/17 11:58 98.1 F 62 24 135/86 94 03/24/17 07:50 68 03/24/17 07:48 97.8 F 72 24 116/85 94 03/24/17 06:00 69 118/63 Intake and Output 03/23/17 03/24/17 03/24/17 23:59 07:59 15:59 Intake Total 1490.7 / 1490.7 1245.3 / 1245.3 1489 / 1489 Output Total 578 / 578 300 / 300 Balance 912.7 / 912.7 945.3 / 945.3 1489 / 1489 Intake: IV Fluids 1040.7 / 1040.7 1245.3 / 1245.3 1009 / 1009 D5% And 0.45% Nacl 1000 1000 / 1000 1000 / 1000 1000 / 1000 Ml Bag 1,000 ML @ 125 mls /hr IVC .Q8H [facility] Rx#: [id number] Cardizem 125 MG In 40.7 / 40.7 245.3 / 245.3 9 / 9 Dextrose 5% 100 ML @ 5 MG /HR 5 mls/hr IVC .Q24H [facility] Rx#:[id number] Oral 450 / 450 480 / 480 Output: Urine 380 / 380 300 / 300 Urethral (Watters) 300 / 300 Catheter 198 / 198 Other: Meal Dinner Percent of Meal Consumed 50% Weight 101.5 kg Blood Glucose* 176 182 178 Patient Weight 03/24/17 23:59 Weight 101.5 kg - Abdomen Abdomen: Present: bowel sounds present, distended (Tympanitic. LUQ incision healing well. No erythema.) - Labs 03/25/17 04:22 03/25/17 04:22 Diabetes panel 03/24/17 Range/Units 03:27 Sodium 130 L (136-145) mEq/L Potassium 4.6 H (3.5-4.5) mEq/L Chloride 104 (98-109) mEq/L Carbon Dioxide 18 L (19-29) mEq/L BUN 23 H (7-20) mg/dL Creatinine 1.61 H (0.57-1.11) mg/dL Glucose 163 H (70-99) mg/dL Calcium 7.7 L (8.6-10.8) mg/dL Thyroid panel 03/24/17 Range/Units 03:27 TSH 2.520 (0.350-4.840) mcIU/mL Calcium panel 03/24/17 Range/Units 03:27 Calcium 7.7 L (8.6-10.8) mg/dL Phosphorus 2.5 (2.3-4.7) mg/dL Pituitary panel 03/24/17 Range/Units 03:27 Sodium 130 L (136-145) mEq/L Potassium 4.6 H (3.5-4.5) mEq/L Chloride 104 (98-109) mEq/L Carbon Dioxide 18 L (19-29) mEq/L BUN 23 H (7-20) mg/dL Creatinine 1.61 H (0.57-1.11) mg/dL Glucose 163 H (70-99) mg/dL Calcium 7.7 L (8.6-10.8) mg/dL TSH 2.520 (0.350-4.840) mcIU/mL Adrenal panel 03/24/17 Range/Units 03:27 Sodium 130 L (136-145) mEq/L Potassium 4.6 H (3.5-4.5) mEq/L Chloride 104 (98-109) mEq/L Carbon Dioxide 18 L (19-29) mEq/L BUN 23 H (7-20) mg/dL Creatinine 1.61 H (0.57-1.11) mg/dL Glucose 163 H (70-99) mg/dL Calcium 7.7 L (8.6-10.8) mg/dL - VTE Documentation of Mechanical Device: Intermittent pneumatic compression device Consult Discharge Plan - Plan Referrals: Mac Castillo MD [Partnered Physician] - 04/23/17 1:30 pm Anthony Pierce DO [Partnered Physician] - 03/28/17 1:15 pm () Wade Waters MD [Primary Care Provider] - 03/31/17 3:15 pm
[2017-03-24] MEDS ORDERED: Bisacodyl 10 MG RECTAL SUPPOSITORY RC ONE (15:25)
[2017-03-24] MEDS: Famotidine 20 MG TABLET PO PRN (18:19)
[2017-03-25] MEDS: Insulin LISPRO 300 UNITS/3 ML VIAL SQ SCH ×4 (00:32→17:41)
[2017-03-25] MEDS: D5% in 0.45% NACL 1,000 ML IVC SCH (02:36)
[2017-03-25 05:20] LABS: Basophils % 0.2 %; Eosinophils # 0.1 K/mcL (0.0-0.6); Eosinophils % 0.8 %; Hematocrit 22.3 % (35.3-44.9); Hemoglobin 7.4 g/dL (11.5-15.4); Immature Granulocytes % 0.8 % (0-4); Lymphocytes # 1.5 K/mcL (0.6-4.6); Lymphocytes % 10.9 %; Mean Corpuscular HGB Conc 33.2 g/dL (31.6-35.5); Mean Corpuscular Hemoglobin 31.6 pg (28.0-33.3); Mean Corpuscular Volume 95.3 fL (83.0-100.0); Mean Platelet Volume 9.2 fL (9.4-12.4); Monocytes # 1.4 K/mcL (0.0-1.3); Monocytes % 10.7 %; Neutrophils # 10.3 K/mcL (1.6-8.9); Platelet Count 196 K/mcL (140-400); Red Blood Count 2.34 M/mcL (3.82-4.97); Red Cell Distribution Width 15.8 % (11.5-14.5); Segmented Neutrophils % 76.6 %
[2017-03-25 05:38] LABS: Calcium 7.7 mg/dL (8.6-10.8); Magnesium 2.2 mg/dL (1.6-2.6); Phosphorous 3.1 mg/dL (2.3-4.7); Potassium 4.1 mEq/L (3.5-4.5)
[2017-03-25 06:14] LABS: Platelet Estimate Normal (Normal); Reactive Lymphocytes Present (Not Present)
[2017-03-25] MEDS: Famotidine 20 MG TABLET PO PRN (06:28)
--- NOTE | 2017-03-25 07:10 | Urology Progress Note ---
Date of Encounter: 03/25/17 Time of Encounter: 07:05 - Assessment and Plan (1) Renal mass Current Visit: Yes Status: Acute Assessment and plan: POD #4. s/p left haln with spleen hematoma. 1. H&H dropped today. Will order another 2 units PRBC. 2. Will consult hospitalist today for wheezing. 3. Continue catheter to closely monitor I&O. 4. Will decrease IVF and change to 0.9NS with hyponatremia. 5. Continue clears. Still feels bloated. Will order another suppository. (2) CKD (chronic kidney disease), stage III Current Visit: No Status: Chronic (3) Obesity Current Visit: No Status: Chronic Qualifiers: Obesity type: unspecified obesity type Qualified Code(s): E66.9 - Obesity, unspecified (4) Spleen hematoma Current Visit: Yes Status: Acute Assessment and plan: Appreciate general surgery input. Qualifiers: Encounter type: initial encounter Qualified Code(s): S36.029A - Unspecified contusion of spleen, initial encounter (5) Atrial fibrillation with rapid ventricular response Current Visit: Yes Status: Acute (6) Anemia Current Visit: No Status: Acute Qualifiers: Anemia type: other cause Other causes of anemia: acute posthemorrhagic Qualified Code(s): D62 - Acute posthemorrhagic anemia Progress Note Narrative: s/p left haln. POD #4. Spleen hematoma. CT reviewed last night. Hematoma appears stable. H&H dropped down this morning. UOP has been good. Objective Initial Vital Signs Temp Pulse Resp BP Pulse Ox 97.5 F L 62 18 135/66 96 03/21/17 08:00 03/21/17 08:00 03/21/17 08:00 03/21/17 08:00 03/21/17 08:00 - General physical appearance Present: well developed, well nourished, no distress - Respiratory Present: normal respiratory effort - Abdomen Present: soft (Distended and tympanitic. Inc are c,d,i) - Genitourinary Urine Appearance: Present: Clear - Labs 03/25/17 04:22 03/25/17 04:22 Diabetes panel 03/25/17 Range/Units 04:22 Sodium 128 L (136-145) mEq/L Potassium 4.1 (3.5-4.5) mEq/L Chloride 100 (98-109) mEq/L Carbon Dioxide 21 (19-29) mEq/L BUN 26 H (7-20) mg/dL Creatinine 1.78 H (0.57-1.11) mg/dL Glucose 142 H (70-99) mg/dL Calcium 7.7 L (8.6-10.8) mg/dL Calcium panel 03/25/17 Range/Units 04:22 Calcium 7.7 L (8.6-10.8) mg/dL Phosphorus 3.1 (2.3-4.7) mg/dL Pituitary panel 03/25/17 Range/Units 04:22 Sodium 128 L (136-145) mEq/L Potassium 4.1 (3.5-4.5) mEq/L Chloride 100 (98-109) mEq/L Carbon Dioxide 21 (19-29) mEq/L BUN 26 H (7-20) mg/dL Creatinine 1.78 H (0.57-1.11) mg/dL Glucose 142 H (70-99) mg/dL Calcium 7.7 L (8.6-10.8) mg/dL Adrenal panel 03/25/17 Range/Units 04:22 Sodium 128 L (136-145) mEq/L Potassium 4.1 (3.5-4.5) mEq/L Chloride 100 (98-109) mEq/L Carbon Dioxide 21 (19-29) mEq/L BUN 26 H (7-20) mg/dL Creatinine 1.78 H (0.57-1.11) mg/dL Glucose 142 H (70-99) mg/dL Calcium 7.7 L (8.6-10.8) mg/dL - VTE Documentation of Mechanical Device: Intermittent pneumatic compression device Consult Discharge Plan - Plan Referrals: Wade Waters MD [Primary Care Provider] - 03/31/17 3:15 pm
[2017-03-25] MEDS ORDERED: Furosemide 20 MG/2 ML VIAL IVP ONE (07:13)
[2017-03-25] MEDS ORDERED: 0.9 % Sodium Chloride 1,000 ML IVC SCH (07:15)
[2017-03-25] MEDS: Ondansetron 4 MG/2 ML VIAL IVP PRN (07:56)
[2017-03-25] MEDS: Diltiazem CD (24hr) 120 MG CAPSULE PO SCH (07:57)
[2017-03-25] MEDS ORDERED: Furosemide 40 MG/4 ML VIAL IVP SCH (09:00)
--- NOTE | 2017-03-25 10:07 | Internal Medicine Consult Note ---
Date of Encounter: 03/25/17 Time of Encounter: 10:00 - Assessment and Plan (1) Acute congestive heart failure with left ventricular diastolic dysfunction Current Visit: Yes Status: Acute Assessment and plan: Related to fluid resuscitation throughout hospitalization. She has been getting about 3 L of fluids daily. I will discontinue fluids start the patient on Lasix 40 mg intravenous twice-daily. Strict intake and output. Monitor electrolytes. This morning potassium and magnesium are within normal limits. I have discussed with Dr. Anguiano. There is some silhoetting of the left jonn diaphragm which may raise suspicion for pneumonia in that area. However patient is afebrile. Only minimal sputum production whitish in color. I will repeat to view chest x-ray after diuresis. Patient becomes febrile or hypotensive antibiotics will be initiated. But at this point I feel it is reasonable to diuresis her then repeat a 2-view chest x- ray (2) Afib Current Visit: Yes Status: Acute Assessment and plan: Rate 90s to 100s. She is on metoprolol as well as newly started Cardizem 120 mg daily. Should improve with improvement of her heart failure. Qualifiers: Qualified Code(s): I48.91 - Unspecified atrial fibrillation (3) Spleen hematoma Current Visit: Yes Status: Acute Assessment and plan: Surgery team following. So for surgery is attempting conservative management Qualifiers: Qualified Code(s): S36.029A - Unspecified contusion of spleen, initial encounter (4) Acute blood loss anemia Current Visit: Yes Status: Acute Assessment and plan: One unit of blood transfusion will be given. close monitoring of respiratory status. (5) Hyponatremia Current Visit: Yes Status: Acute Assessment and plan: She has been getting half normal saline and this is likely the cause, in addition to an element of hypovolemic hyponatremia due to heart failure. Should improve with diuresis. Will follow Internal Medicine - CN: HPI - Data of Consult Requesting Physician: Saturnino Anguiano, - Consult Narrative History of present illness: Ms. Carpio is a 76 year old female with multiple medical problems including paroxysmal atrial fibrillation, hypertension, chronic kidney disease stage III, history of breast cancer status post mastectomy in 2008 whole had an elective laparoscopic left nephrectomy on 03/21/2017 after which a splenic hematoma developed and the medicine team is consultated because the patient is short of breath. Patient has been getting progressively short of breath over the past few days requiring 2 L of nasal oxygen. She started having some cough with whitish sputum. She has been afebrile throughout her hospital course. Patient has been getting approximately 3 L of fluid every day throughout her hospitalization in addition to blood transfusion. Patient notes bilateral lower extremity swelling she has gained at least 5 pounds throughout hospitalization. She denies any chest pain. No hemoptysis. She has no known diagnosis of COPD but she is on 2 L of oxygen at night time at home, etiology not clear but she has a 30 pack year smoking history. Past Med Surg Social Fam HX - Past Medical History Medical history: arthritis, atrial fibrillation, cancer, hyperlipidemia, hypertension, malignancy, renal disease, thyroid disease, other Psychiatric history: no psych history - Past Surgical History Surgical History: breast surgery, cancer surgery, cataract, hip replacement, orthopedic, other, sinus surgery, other - Social History Smoking Status: Never smoker Smokeless Tobacco Status: No Alcohol use: none Drug use: none - Family History Mother History Unknown: Yes Hx Family Neurologic Disorders: Yes (aneurysm) Review of systems: 10 point review of systems is negative except for HPI Internal Medicine - CN: Meds Oxybutynin Chloride [Oxybutynin Chloride ER] 10 mg PO QPM 06/30/15 [History] Atorvastatin [Lipitor] 40 mg PO HS tablet 07/03/15 [Rx] Losartan [Cozaar] 100 mg PO DAILY #30 tablet 07/03/15 [Rx] Aspirin Enteric Coated [Aspirin EC] 81 mg PO DAILY 08/08/15 [History] Furosemide [Lasix] 40 mg PO HS 09/26/15 [History] Potassium Chloride [Klor-Con Sprinkle] 10 meq PO BID 09/26/15 [History] Calcium Citrate/Vitamin D3 [Calcium Citrate-Vit D3 Tablet] 1 each PO DAILY 03/31 [History] Cholecalciferol (Vitamin D3) [Vitamin D3] 2,000 unit PO DAILY 03/31/16 [History] Clindamycin HCl [Cleocin HCl] 300 mg PO DAILY 03/31/16 [History] Glucosamine Sulfate Dipot Chlr [Glucosamine] 500 mg PO DAILY 03/31/16 [History] Vit C/Vit E/Lutein/Min/[place]-3 [Ocuvite Softgel] 1 cap PO DAILY 03/31/16 [ History] Ferrous Sulfate 325 mg PO BIDWM #60 tablet 07/25/16 [Rx] Rivaroxaban [Xarelto] 15 mg PO 1700 #30 tablet 07/26/16 [Rx] Metoprolol [Lopressor] 25 mg PO BID 03/21/17 [History] Vit C/Vit E/Lutein/Min/[place]-3 [Ocuvite Softgel] 1 each PO DAILY 03/21/17 [ History] Allergies No Known Allergies Allergy (Verified 03/21/17 08:34) Internal Medicine - CN: Exam - Constitutional Vitals: Temp Pulse Resp BP Pulse Ox 98.1 F 93 18 132/76 93 03/25/17 08:23 03/25/17 08:23 03/25/17 08:23 03/25/17 08:23 03/25/17 08:23 Exam: Gen.: patient is alert oriented times 3 not in distress cardiac: variable intensity of S1 due to atrial fibrillation, no murmur chest: diminished or entry in the bases. Crackles in bases lower extremity 2+ swelling Neuro: no focal deficits Internal Medicine - CN: Reslt - Labs CBC & Chem 7: 03/25/17 04:22 03/25/17 04:22 Labs: Short CBC 03/25/17 Range/Units 04:22 WBC 13.4 H (4.3-11.1) K/mcL Hgb 7.4 L (11.5-15.4) g/dL Hct 22.3 L (35.3-44.9) % Plt Count 196 (140-400) K/mcL Neutrophils # 10.3 H (1.6-8.9) K/mcL BMP 03/25/17 04:22 Sodium 128 L Potassium 4.1 Chloride 100 Carbon Dioxide 21 BUN 26 H Creatinine 1.78 H Glucose 142 H Calcium 7.7 L - Impressions Impressions Abdomen/Pelvis CT 03/22/17 10:28 IMPRESSION: 1. Status post left nephrectomy with expected postsurgical fluid and air. 2. Large, 13 x 7.8 cm hemorrhagic appearing fluid collection involving the spleen parenchyma and subcapsular margin of the spleen. There is extension of the hemorrhage into the pelvis with hemorrhagic appearing free fluid. 3. Left adrenal hemorrhage 3.2 x 2.1 cm. 4. Cholelithiasis. 5. Ascites. 6. Small effusions with bilateral lower lobe consolidation. Dr. Saturnino Anguiano was notified at 11:39 a.m. on 03/22/2017. D/ / 03/22/2017 11:46:59 Jamshid Laguna MD / omar Interpreting Provider: Jamshid Laguna MD Abdomen/Pelvis CT 03/24/17 15:00 IMPRESSION: 1. Grossly stable splenic subcapsular hematoma. Hemorrhagic fluid tracking in the left pericolic gutter into the pelvis is stable or slightly improved. Interval decrease in ascites. No free air. 2. Stable left adrenal mass likely representing hemorrhagic change. 3. Status post left nephrectomy. Infiltration of the fat in the left flank with subcutaneous gas extending into the anterior abdomen. No focal subcutaneous collection. 4. Small bilateral pleural effusions, slightly increased. Dependent bilateral lower lobe atelectasis. D/ / 03/24/2017 16:18:10 Mac Gray MD / Ivana Castillo Interpreting Provider: Mac Gray MD Chest X-Ray 03/24/17 15:24 IMPRESSION: Findings suggestive of mild edema with small bilateral pleural effusions. D/ / Parvin Tijerina MD / Parvin Tijerina MD Interpreting Provider: Parvin Tijerina MD Chest X-Ray 03/25/17 08:46 IMPRESSION: Stable cardiomegaly. Low lung volumes. Moderate pulmonary vascular congestion, increased. Patchy airspace opacities bilaterally, most pronounced at the left lung base, likely related to pulmonary edema versus atelectasis or pneumonia, progressed at the left lung base, improved at the right lung base. Moderate left pleural effusion, increased. Mild right pleural effusion, improved. D/ / Viral Echeverria MD / Viral Echeverria MD Interpreting Provider: Viral Echeverira MD Consult Discharge Plan - Plan Referrals: Wade Waters MD [Primary Care Provider] - 03/31/17 3:15 pm
--- NOTE | 2017-03-25 10:31 | General Surgery Progress Note ---
Date of Encounter: 03/25/17 Time of Encounter: 09:15 - Assessment and Plan (1) Spleen hematoma Current Visit: Yes Status: Acute Repeat CT shows that splenic hematoma is stable Hgb 7.8>7.4 Supportive care Pain control Continue clear liquids Repeat am labs Will continue to follow and assess progress Qualifiers: Encounter type: subsequent encounter Qualified Code(s): S36.029D - Unspecified contusion of spleen, subsequent encounter (2) Ileus Current Visit: Yes Status: Acute Improving- bowel movement and flatus after suppository Continue clear liquids Subjective Patient reports: no new complaints, feels better, still having pain, flatus ( small amount), bowel movement (this morning), nausea ( and dry heaves), afebrile , other (complaint of heartburn) Objective Vital Signs - Last 8 Hours Temp Pulse Resp BP Pulse Ox 03/25/17 08:23 98.1 F 80 18 132/76 93 03/25/17 04:10 80 03/25/17 04:07 98.1 F 89 17 123/77 96 Intake and Output 03/24/17 03/25/17 03/25/17 23:59 07:59 15:59 Intake Total 1000 / 1000 1000 / 1000 Output Total 750 / 750 500 / 500 Balance 250 / 250 1000 / 1000 -500 / -500 Intake: IV Fluids 1000 / 1000 1000 / 1000 D5% And 0.45% Nacl 1000 1000 / 1000 1000 / 1000 Ml Bag 1,000 ML @ 125 mls /hr IVC .Q8H RAAD Rx#: [id number] Output: Catheter 750 / 750 500 / 500 Other: # Bowel Movements 0 Weight 117.4 kg Blood Glucose* 158 156 Patient Weight 03/25/17 23:59 Weight 117.4 kg - General physical appearance well developed, well nourished, no distress - ENT normal mucosa, atraumatic, normocephalic - Neck Neck exam: trachea midline - Respiratory normal respiratory effort, other (diminished bibasilar bases) wheezing: bilateral - Cardiovascular Cardiovascular exam: Present: RRR - Abdomen Abdomen: Present: bowel sounds present (hypoactive), soft, distended, tender ( generalized) - Neurologic CN 2-12 grossly intact - Psychiatric oriented to time, oriented to person, oriented to place, speech is normal, memory intact - Labs 03/25/17 04:22 03/25/17 04:22 Diabetes panel 03/25/17 Range/Units 04:22 Sodium 128 L (136-145) mEq/L Potassium 4.1 (3.5-4.5) mEq/L Chloride 100 (98-109) mEq/L Carbon Dioxide 21 (19-29) mEq/L BUN 26 H (7-20) mg/dL Creatinine 1.78 H (0.57-1.11) mg/dL Glucose 142 H (70-99) mg/dL Calcium 7.7 L (8.6-10.8) mg/dL Calcium panel 03/25/17 Range/Units 04:22 Calcium 7.7 L (8.6-10.8) mg/dL Phosphorus 3.1 (2.3-4.7) mg/dL Pituitary panel 03/25/17 Range/Units 04:22 Sodium 128 L (136-145) mEq/L Potassium 4.1 (3.5-4.5) mEq/L Chloride 100 (98-109) mEq/L Carbon Dioxide 21 (19-29) mEq/L BUN 26 H (7-20) mg/dL Creatinine 1.78 H (0.57-1.11) mg/dL Glucose 142 H (70-99) mg/dL Calcium 7.7 L (8.6-10.8) mg/dL Adrenal panel 03/25/17 Range/Units 04:22 Sodium 128 L (136-145) mEq/L Potassium 4.1 (3.5-4.5) mEq/L Chloride 100 (98-109) mEq/L Carbon Dioxide 21 (19-29) mEq/L BUN 26 H (7-20) mg/dL Creatinine 1.78 H (0.57-1.11) mg/dL Glucose 142 H (70-99) mg/dL Calcium 7.7 L (8.6-10.8) mg/dL - VTE Documentation of Mechanical Device: Intermittent pneumatic compression device Consult Discharge Plan - Plan Referrals: Mac Castillo MD [Partnered Physician] - 04/23/17 1:30 pm Anthony Pierce DO [Partnered Physician] - 03/28/17 1:15 pm () Wade Waters MD [Primary Care Provider] - 03/31/17 3:15 pm - Attending Attestation I examined this patient and my medical decision-making was reviewed with the ADVERTISING INSERTER/PA/Advanced Practice Nurse/Resident Physician. I agree with the documented findings, disposition and treatment plan as described except to the extent set forth below. I reviewed the assessment and physical examination with the nurse practitioner present. I agree with the above assessment. Patient still has abdominal distention and has some dry heaves. Recommend continue with clears for now. CT scan demonstrates stability of the splenic hematoma.
[2017-03-25] MEDS: Furosemide 40 MG/4 ML VIAL IVP SCH ×2 (10:55→17:52)
[2017-03-25] MEDS: *HR* OxyCODONE Immed Rel 5 MG TABLET PO PRN (21:19)
[2017-03-26] MEDS: Insulin LISPRO 300 UNITS/3 ML VIAL SQ SCH ×4 (00:13→19:02)
[2017-03-26 04:48] LABS: Basophils % 0.4 %; Eosinophils # 0.2 K/mcL (0.0-0.6); Eosinophils % 1.3 %; Hemoglobin 8.3 g/dL (11.5-15.4); Immature Granulocytes % 0.9 % (0-4); Lymphocytes # 1.4 K/mcL (0.6-4.6); Lymphocytes % 12.3 %; Mean Corpuscular HGB Conc 33.2 g/dL (31.6-35.5); Mean Corpuscular Hemoglobin 31.9 pg (28.0-33.3); Mean Corpuscular Volume 96.2 fL (83.0-100.0); Mean Platelet Volume 9.4 fL (9.4-12.4); Monocytes # 1.3 K/mcL (0.0-1.3); Monocytes % 11.7 %; Neutrophils # 8.4 K/mcL (1.6-8.9); Nucleated Red Blood Cells 0.4 /100 WBC (0); Platelet Count 221 K/mcL (140-400); Red Cell Distribution Width 15.8 % (11.5-14.5); Segmented Neutrophils % 73.4 %
[2017-03-26 05:02] LABS: Calcium 8.1 mg/dL (8.6-10.8); Phosphorous 3.5 mg/dL (2.3-4.7); Potassium 4.1 mEq/L (3.5-4.5)
[2017-03-26] MEDS ORDERED: Bisacodyl 10 MG RECTAL SUPPOSITORY RC ONE (07:05)
--- NOTE | 2017-03-26 07:09 | Urology Progress Note ---
Date of Encounter: 03/26/17 Time of Encounter: 07:06 - Assessment and Plan (1) Renal mass Current Visit: Yes Status: Acute Assessment and plan: POD #5 s/p left haln. Spleen hematoma. 1. H&H improved after transfusion. HR and BP stable. 2. Appreciate general surgery input regarding management of spleen hematoma. Will defer to their advice regarding diet. Will give dulcolax today. 3. Appreciate IM support regarding diuresis. Will defer to them for further lasix. 4. Continue Watters catheter to closely monitor I&O. Follow H&H. 5. Ambulate TID. 6. Continue in patient stay. 7. PPI and SCDs for prophylaxis. (2) CKD (chronic kidney disease), stage III Current Visit: No Status: Chronic (3) Obesity Current Visit: No Status: Chronic Qualifiers: Obesity type: unspecified obesity type Qualified Code(s): E66.9 - Obesity, unspecified (4) Spleen hematoma Current Visit: Yes Status: Acute Qualifiers: Encounter type: subsequent encounter Qualified Code(s): S36.029D - Unspecified contusion of spleen, subsequent encounter (5) Atrial fibrillation with rapid ventricular response Current Visit: Yes Status: Acute (6) Anemia Current Visit: No Status: Acute Qualifiers: Anemia type: other cause Other causes of anemia: acute posthemorrhagic Qualified Code(s): D62 - Acute posthemorrhagic anemia Progress Note Narrative: Doing fairly well today. She reports improvement in her breathing. She says she is passing some gas, but felt nauseated with regular diet yesterday. Diet brought back to clears. She was out of bed yesterday. Hemoglobin improved to 8.3 after transfusion. Objective Initial Vital Signs Temp Pulse Resp BP Pulse Ox 97.5 F L 62 18 135/66 96 03/21/17 08:00 03/21/17 08:00 03/21/17 08:00 03/21/17 08:00 03/21/17 08:00 - General physical appearance Present: well developed, well nourished, no distress - Respiratory Present: normal respiratory effort - Abdomen Present: soft (appropriately tender, mild distension, tympanitic. Incisions are c,d,i) - Genitourinary Urine Appearance: Present: Clear - Labs 03/26/17 04:30 03/26/17 04:30 Diabetes panel 03/26/17 Range/Units 04:30 Sodium 133 L (136-145) mEq/L Potassium 4.1 (3.5-4.5) mEq/L Chloride 102 (98-109) mEq/L Carbon Dioxide 24 (19-29) mEq/L BUN 30 H (7-20) mg/dL Creatinine 1.81 H (0.57-1.11) mg/dL Glucose 119 H (70-99) mg/dL Calcium 8.1 L (8.6-10.8) mg/dL Calcium panel 03/26/17 Range/Units 04:30 Calcium 8.1 L (8.6-10.8) mg/dL Phosphorus 3.5 (2.3-4.7) mg/dL Pituitary panel 03/26/17 Range/Units 04:30 Sodium 133 L (136-145) mEq/L Potassium 4.1 (3.5-4.5) mEq/L Chloride 102 (98-109) mEq/L Carbon Dioxide 24 (19-29) mEq/L BUN 30 H (7-20) mg/dL Creatinine 1.81 H (0.57-1.11) mg/dL Glucose 119 H (70-99) mg/dL Calcium 8.1 L (8.6-10.8) mg/dL Adrenal panel 03/26/17 Range/Units 04:30 Sodium 133 L (136-145) mEq/L Potassium 4.1 (3.5-4.5) mEq/L Chloride 102 (98-109) mEq/L Carbon Dioxide 24 (19-29) mEq/L BUN 30 H (7-20) mg/dL Creatinine 1.81 H (0.57-1.11) mg/dL Glucose 119 H (70-99) mg/dL Calcium 8.1 L (8.6-10.8) mg/dL - VTE Documentation of Mechanical Device: Intermittent pneumatic compression device Consult Discharge Plan - Plan Referrals: Mac Castillo MD [Partnered Physician] - 04/23/17 1:30 pm Anthony Pierce DO [Partnered Physician] - 03/28/17 1:15 pm () Wade Waters MD [Primary Care Provider] - 03/31/17 3:15 pm
[2017-03-26] MEDS: Diltiazem CD (24hr) 120 MG CAPSULE PO SCH (07:38)
[2017-03-26] MEDS: Furosemide 40 MG/4 ML VIAL IVP SCH ×2 (07:38→16:20)
--- NOTE | 2017-03-26 09:50 | General Surgery Progress Note ---
Date of Encounter: 03/26/17 Time of Encounter: 09:30 - Assessment and Plan (1) Spleen hematoma Current Visit: Yes Status: Acute Repeat CT shows that splenic hematoma is stable Hgb 7.8>7.4>8.3 (1 unit PRBC given 03/25) Supportive care Pain control Advance to soft diet Surgery will sign off at this time. Thank you for allowing us to participate in the care of this patient. Please call with any further questions/concerns. Qualifiers: Encounter type: subsequent encounter Qualified Code(s): S36.029D - Unspecified contusion of spleen, subsequent encounter (2) Ileus Current Visit: Yes Status: Resolved Improving- bowel movement and flatus after suppository Advance to soft diet Subjective Patient reports: no new complaints, feels better, still having pain, pain is less, tolerating liquids well, flatus, bowel movement (03/25/17), afebrile, other (Denies any nausea or dry heaves this morning. Tolerating clear liquids for breakfast.) Objective Vital Signs - Last 8 Hours Temp Pulse Resp BP Pulse Ox 03/26/17 07:51 98.2 F 90 18 120/69 97 03/26/17 07:34 98.2 F 90 18 120/69 97 03/26/17 03:26 98.4 F 77 19 96/64 98 Intake and Output 03/25/17 03/26/17 03/26/17 23:59 07:59 15:59 Intake Total 120 / 120 Output Total 1800 / 1800 Balance 120 / 120 -1800 / -1800 Intake: Oral 120 / 120 Output: Catheter 1800 / 1800 Other: # Bowel Movements 0 Weight 115.1 kg Blood Glucose* 152 118 Patient Weight 03/26/17 23:59 Weight 115.1 kg - General physical appearance well developed, well nourished, no distress - Eyes normal ocular movement - ENT normal mucosa, atraumatic, normocephalic - Neck Neck exam: trachea midline - Respiratory normal respiratory effort, clear to auscultation, other (diminished bibasilar bases) - Cardiovascular Cardiovascular exam: Present: RRR - Abdomen Abdomen: Present: bowel sounds present, soft, distended, tender (expected tenderness) - Incision Incision: Present: clean and dry, intact - Neurologic CN 2-12 grossly intact - Psychiatric oriented to time, oriented to person, oriented to place, speech is normal, memory intact - Labs 03/26/17 04:30 03/26/17 04:30 Diabetes panel 03/26/17 Range/Units 04:30 Sodium 133 L (136-145) mEq/L Potassium 4.1 (3.5-4.5) mEq/L Chloride 102 (98-109) mEq/L Carbon Dioxide 24 (19-29) mEq/L BUN 30 H (7-20) mg/dL Creatinine 1.81 H (0.57-1.11) mg/dL Glucose 119 H (70-99) mg/dL Calcium 8.1 L (8.6-10.8) mg/dL Calcium panel 03/26/17 Range/Units 04:30 Calcium 8.1 L (8.6-10.8) mg/dL Phosphorus 3.5 (2.3-4.7) mg/dL Pituitary panel 03/26/17 Range/Units 04:30 Sodium 133 L (136-145) mEq/L Potassium 4.1 (3.5-4.5) mEq/L Chloride 102 (98-109) mEq/L Carbon Dioxide 24 (19-29) mEq/L BUN 30 H (7-20) mg/dL Creatinine 1.81 H (0.57-1.11) mg/dL Glucose 119 H (70-99) mg/dL Calcium 8.1 L (8.6-10.8) mg/dL Adrenal panel 03/26/17 Range/Units 04:30 Sodium 133 L (136-145) mEq/L Potassium 4.1 (3.5-4.5) mEq/L Chloride 102 (98-109) mEq/L Carbon Dioxide 24 (19-29) mEq/L BUN 30 H (7-20) mg/dL Creatinine 1.81 H (0.57-1.11) mg/dL Glucose 119 H (70-99) mg/dL Calcium 8.1 L (8.6-10.8) mg/dL - VTE Documentation of Mechanical Device: Intermittent pneumatic compression device Consult Discharge Plan - Plan Referrals: Mac Castillo MD [Partnered Physician] - 04/23/17 1:30 pm Anthony Pierce DO [Partnered Physician] - 03/28/17 1:15 pm () Wade Waters MD [Primary Care Provider] - 03/31/17 3:15 pm - Attending Attestation I examined this patient and my medical decision-making was reviewed with the PAROLE BOARD MEMBER/PA/Advanced Practice Nurse/Resident Physician. I agree with the documented findings, disposition and treatment plan as described except to the extent set forth below.
[2017-03-26] MEDS ORDERED: Ipratropium/Albuterol Neb 3 ML IH ONE (12:07)
--- NOTE | 2017-03-26 12:10 | Internal Med Progress Note ---
Date of Encounter: 03/26/17 Time of Encounter: 12:07 - Assessment and plan (1) Acute congestive heart failure with left ventricular diastolic dysfunction Current Visit: Yes Status: Acute Assessment and plan: Continue lasix BID Obtain ECHO Patient still positive 5L No hx of COPD Wheezing is possibly cardiac in origin Duonebs stat and q4h for now Continue Strict I/O, daily weight, fluid restriction Will repeat CXR once we start to have negative fluid balance (2) CKD (chronic kidney disease), stage III Current Visit: Yes Status: Chronic Assessment and plan: Cr at baseline, continue to monitor (3) Hyponatremia Current Visit: Yes Status: Chronic Assessment and plan: Mild improvement, continue to monitor (4) HTN (hypertension) Current Visit: Yes Status: Chronic Assessment and plan: Controlled, continue current meds Qualifiers: Hypertension type: essential hypertension Qualified Code(s): I10 - Essential (primary) hypertension (5) Spleen hematoma Current Visit: Yes Status: Acute Assessment and plan: Management per primary team/surgery Qualifiers: Encounter type: subsequent encounter Qualified Code(s): S36.029D - Unspecified contusion of spleen, subsequent encounter (6) Afib Current Visit: Yes Status: Chronic Assessment and plan: s/p ablation in the past Continue cardizem Not on anticaogulation at this time, was on xarelto at home, possibly held due to hematoma Will resume prior to discharge once stable Qualifiers: Atrial fibrillation type: chronic Qualified Code(s): I48.2 - Chronic atrial fibrillation - Subjective Interval history: Seen and evaluated at bedside Wheezing audibly patient with anemia of blood loss from nephrectomy/spenic injury Hospital team is consulted for management of co-morbidities She has a PMH of Afib CHF, HTN Denies new complains Leukocytosis is improving, Hb stable I/O +[id number] ECHO ordered today - Constitutional Vitals: Temp Pulse Resp BP Pulse Ox 97.8 F 81 18 123/75 96 03/26/17 11:53 03/26/17 11:53 03/26/17 11:53 03/26/17 11:53 03/26/17 11:53 Exam: VSS, O2 sat 92-96% on NC Gen: Not in any form of distress, speaks full sentences, Neuro: AAOX3, moves all limbs spontaneously, no focal deficits, no speech abnormality or facial asymmetry HEENT: Moist mucosa, no cyanosis, RAN Chest: audible wheezes, no rhonchi, no stridor. Heart: S1, S2, no m/g/r Abdomen: Soft, not tender, no palpably enlarged organs Extremities: No edema Internal Medicine: Result - Labs CBC & Chem 7: 03/26/17 04:30 03/26/17 04:30 Labs: Short CBC 03/26/17 Range/Units 04:30 WBC 11.4 H (4.3-11.1) K/mcL Hgb 8.3 L (11.5-15.4) g/dL Hct 25.0 L (35.3-44.9) % Plt Count 221 (140-400) K/mcL Neutrophils # 8.4 (1.6-8.9) K/mcL BMP 03/26/17 04:30 Sodium 133 L Potassium 4.1 Chloride 102 Carbon Dioxide 24 BUN 30 H Creatinine 1.81 H Glucose 119 H Calcium 8.1 L - Impressions Impressions Abdomen/Pelvis CT 03/24/17 15:00 IMPRESSION: 1. Grossly stable splenic subcapsular hematoma. Hemorrhagic fluid tracking in the left pericolic gutter into the pelvis is stable or slightly improved. Interval decrease in ascites. No free air. 2. Stable left adrenal mass likely representing hemorrhagic change. 3. Status post left nephrectomy. Infiltration of the fat in the left flank with subcutaneous gas extending into the anterior abdomen. No focal subcutaneous collection. 4. Small bilateral pleural effusions, slightly increased. Dependent bilateral lower lobe atelectasis. D/ / 03/24/2017 16:18:10 Mac Gray MD / Ivana Castillo Interpreting Provider: Mac Gray MD - VTE Documentation of Mechanical Device: Intermittent pneumatic compression device Consult Discharge Plan - Plan Referrals: Mac Castillo MD [Partnered Physician] - 04/23/17 1:30 pm Anthony Pierce DO [Partnered Physician] - 03/28/17 1:15 pm () Wade Waters MD [Primary Care Provider] - 03/31/17 3:15 pm
[2017-03-26] MEDS: Ipratropium/Albuterol Neb 3 ML IH SCH ×2 (16:00→23:33)
--- NOTE | 2017-03-26 18:17 | ECHO - Doppler Report ---
Echocardiogram Name: Kimber Carpio Date of Study: 03/26/2017 Date: 1940 Ht: 62.0 in Medical Record#: [id number] Age: 76 Wt: 253.0 lb Gender: Female BSA: 2.11 Order #: [id number] Location: [facility] Room #: 2N10 Reading Physician: Patrick Pringle DO, FARIDA, ANDREE FLORES Fiscal Assistant: Gilmer Medina Ordering Physician: Johnson Arenas MD Primary Physician: Wade Waters MD Indications: Congestive heart failure Impressions: Technically sub-optimal due to poor echocardiographic windows. LVEF 60%. Normal LV chamber size, wall thickness and function. Indeterminate diastolic function. Mildly dilated right ventricle with normal appearing function. Moderate pulmonary hypertension. Estimated RVSP 48 mmHg. No significant valvular dysfunction. Findings: Study Quality * Technically sub-optimal due to poor echocardiographic windows. ECG Findings * The rhythm cannot be determined due to artifact. Left Ventricle * LVEF 60%. * Normal LV chamber size, wall thickness and function. * Indeterminate diastolic function. Right Ventricle * Mildly dilated right ventricle with normal appearing function. Left Atrium * Mild to moderately dilated left atrium. Right Atrium * Mildly dilated right atrium. Interatrial Septum * Interatrial septum not well evaluated. Aortic Valve * Trileaflet aortic valve. * Mildly calcified aortic valve leaflets. * Trace aortic regurgitation. * No aortic stenosis. Mitral Valve * Mild mitral annular calcification * No mitral regurgitation. * No mitral stenosis. Tricuspid Valve * Normal tricuspid valve structure and function. * Trace tricuspid regurgitation. * Moderate pulmonary hypertension. Pulmonic Valve * Normal pulmonic valve structure and function. * No pulmonic regurgitation. Aorta * Normally sized aortic root. Pericardium * The pericardium appears normal. IVC * Normal IVC dimensions and inspiratory collapse. Pulmonary Artery * Normal visualized portions of the main pulmonary artery. History Hypertension Hypercholesteremia Congestive Heart Failure 09/20/2015 a Previous Echo was performed. Measurements: BP: 123/ 75 2D Normal Values RVIDd: 3.30 cm <2.7 cm IVSd: .80 cm 0.6 - 1.0 cm LVIDd: 5.00 cm 3.7 - 5.6 cm LVPWd: .80 cm 0.6 - 1.1 cm LVIDs: 3.90 cm 1.5 - 3.6 cm AO: 2.30 cm < 4.0 cm LA: 3.50 cm 2.0 - 4.0cm %FS: 22.00 cm >25 % LVOT Diam: 1.90 cm LA volume: 50 Mitral Valve Peak E:1.11 m/sec Peak A:.35 m/sec E/A Ratio:3.2 Peak E' Lat Todd:11.3 cm/s Peak E' Med Todd:10.8 cm/s E/E' Lat Ratio:9.8 E/E' Med Ratio:10.3 Tricuspid Valve TV Regurg Peak Grad: 43.00mmHg TV Regurg Peak Todd: 3.27m/sec Updated by Patrick Pringle DO, FACAnirudh, MARK, ANDREE on 03/26/2017 6:10:55 PM electronically signed on 03/26/2017 6:12:19 PM with status of Final
[2017-03-26] MEDS: *HR* OxyCODONE Immed Rel 5 MG TABLET PO PRN (21:14)
[2017-03-27] MEDS: Insulin LISPRO 300 UNITS/3 ML VIAL SQ SCH ×4 (00:50→16:52)
[2017-03-27 03:59] LABS: Basophils % 0.3 %; Eosinophils # 0.2 K/mcL (0.0-0.6); Eosinophils % 1.8 %; Hematocrit 25.5 % (35.3-44.9); Hemoglobin 8.4 g/dL (11.5-15.4); Immature Granulocytes % 1.2 % (0-4); Mean Corpuscular HGB Conc 32.9 g/dL (31.6-35.5); Mean Corpuscular Hemoglobin 31.8 pg (28.0-33.3); Mean Corpuscular Volume 96.6 fL (83.0-100.0); Mean Platelet Volume 8.4 fL (9.4-12.4); Monocytes # 1.4 K/mcL (0.0-1.3); Monocytes % 12.2 %; Neutrophils # 7.8 K/mcL (1.6-8.9); Nucleated Red Blood Cells 0.3 /100 WBC (0); Platelet Count 220 K/mcL (140-400); Red Blood Count 2.64 M/mcL (3.82-4.97); Red Cell Distribution Width 15.7 % (11.5-14.5); Segmented Neutrophils % 67.5 %
[2017-03-27 04:09] LABS: Calcium 8.2 mg/dL (8.6-10.8); Potassium 3.8 mEq/L (3.5-4.5)
[2017-03-27] MEDS: Ipratropium/Albuterol Neb 3 ML IH SCH ×4 (05:13→22:43)
--- NOTE | 2017-03-27 07:41 | Urology Progress Note ---
Date of Encounter: 03/27/17 Time of Encounter: 07:38 - Assessment and Plan (1) Renal mass Current Visit: Yes Status: Acute Assessment and plan: Postop day #6. 1. Continue mechanical soft diet as tolerated. 2. Appreciate IM support. Consider discontinuing Watters catheter. Continue diuresis per medicine. 3. Disposition planning. Considered discharged to rehabilitation facility tomorrow if possible. We'll discuss further with internal medicine. 4. Hemoglobin and hematocrit are stable overnight. 5. Continue ambulation. (2) CKD (chronic kidney disease), stage III Current Visit: Yes Status: Chronic (3) Obesity Current Visit: No Status: Chronic Qualifiers: Obesity type: unspecified obesity type Qualified Code(s): E66.9 - Obesity, unspecified (4) Spleen hematoma Current Visit: Yes Status: Acute Qualifiers: Encounter type: subsequent encounter Qualified Code(s): S36.029D - Unspecified contusion of spleen, subsequent encounter (5) Atrial fibrillation with rapid ventricular response Current Visit: Yes Status: Acute (6) Anemia Current Visit: No Status: Acute Qualifiers: Anemia type: other cause Other causes of anemia: acute posthemorrhagic Qualified Code(s): D62 - Acute posthemorrhagic anemia Progress Note Narrative: Postop day #6 status post left hand-assisted laparoscopic nephrectomy. She had a splenic capsule injury. Her hemoglobin has been stable overnight. She is passing flatus. She is tolerating a soft diet. Medicine has been consulted and has been diuresing her. She is ambulating. Her pain is adequately controlled. Objective Initial Vital Signs Temp Pulse Resp BP Pulse Ox 97.5 F L 62 18 135/66 96 03/21/17 08:00 03/21/17 08:00 03/21/17 08:00 03/21/17 08:00 03/21/17 08:00 - General physical appearance Present: well developed, well nourished, no distress - Respiratory Present: normal respiratory effort - Abdomen Present: soft (inc are c,d,i. Mild distension.) - Genitourinary Urine Appearance: Present: Clear - Labs 03/27/17 03:48 03/27/17 03:48 Diabetes panel 03/27/17 Range/Units 03:48 Sodium 135 L (136-145) mEq/L Potassium 3.8 (3.5-4.5) mEq/L Chloride 102 (98-109) mEq/L Carbon Dioxide 27 (19-29) mEq/L BUN 35 H (7-20) mg/dL Creatinine 1.94 H (0.57-1.11) mg/dL Glucose 107 H (70-99) mg/dL Calcium 8.2 L (8.6-10.8) mg/dL Calcium panel 03/27/17 Range/Units 03:48 Calcium 8.2 L (8.6-10.8) mg/dL Pituitary panel 03/27/17 Range/Units 03:48 Sodium 135 L (136-145) mEq/L Potassium 3.8 (3.5-4.5) mEq/L Chloride 102 (98-109) mEq/L Carbon Dioxide 27 (19-29) mEq/L BUN 35 H (7-20) mg/dL Creatinine 1.94 H (0.57-1.11) mg/dL Glucose 107 H (70-99) mg/dL Calcium 8.2 L (8.6-10.8) mg/dL Adrenal panel 03/27/17 Range/Units 03:48 Sodium 135 L (136-145) mEq/L Potassium 3.8 (3.5-4.5) mEq/L Chloride 102 (98-109) mEq/L Carbon Dioxide 27 (19-29) mEq/L BUN 35 H (7-20) mg/dL Creatinine 1.94 H (0.57-1.11) mg/dL Glucose 107 H (70-99) mg/dL Calcium 8.2 L (8.6-10.8) mg/dL - VTE Documentation of Mechanical Device: Intermittent pneumatic compression device Consult Discharge Plan - Plan Referrals: Mac Castillo MD [Partnered Physician] - 04/23/17 1:30 pm Anthony Pierce DO [Partnered Physician] - 03/28/17 1:15 pm () Wade Waters MD [Primary Care Provider] - 03/31/17 3:15 pm
[2017-03-27] MEDS: Diltiazem CD (24hr) 120 MG CAPSULE PO SCH (08:14)
[2017-03-27] MEDS: Furosemide 40 MG/4 ML VIAL IVP SCH (08:14)
[2017-03-27] MEDS: Famotidine 20 MG TABLET PO SCH (08:15)
--- NOTE | 2017-03-27 10:45 | Internal Med Progress Note ---
Date of Encounter: 03/27/17 Time of Encounter: 10:45 - Assessment and plan (1) Acute congestive heart failure with left ventricular diastolic dysfunction Current Visit: Yes Status: Acute Assessment and plan: Possibly diastolic ECHO report noted Hold lasix Patient still positive 5L Duonebs stat and q4h for now Continue Strict I/O, daily weight, fluid restriction Repeat CXR this a.m with cardiomegaly and atelectasis (2) CKD (chronic kidney disease), stage III Current Visit: Yes Status: Chronic Assessment and plan: Cr slighlty worsened, will hold lasix, continue to monitor (3) Hyponatremia Current Visit: Yes Status: Chronic Assessment and plan: Mild improvement, continue to monitor (4) HTN (hypertension) Current Visit: Yes Status: Chronic Assessment and plan: Controlled, continue current meds Qualifiers: Hypertension type: essential hypertension Qualified Code(s): I10 - Essential (primary) hypertension (5) Spleen hematoma Current Visit: Yes Status: Acute Assessment and plan: Management per primary team/surgery Qualifiers: Encounter type: subsequent encounter Qualified Code(s): S36.029D - Unspecified contusion of spleen, subsequent encounter (6) Afib Current Visit: Yes Status: Chronic Assessment and plan: s/p ablation in the past Continue cardizem Not on anticaogulation at this time, was on xarelto at home, possibly held due to hematoma Will recommend to resume prior to discharge once stable Qualifiers: Atrial fibrillation type: chronic Qualified Code(s): I48.2 - Chronic atrial fibrillation - Subjective Interval history: Seen and evaluated at bedside Clinically improved, denies new complains Sitting OOB to chair patient with anemia of blood loss from nephrectomy/spenic injury Hospital team is consulted for management of co-morbidities She has a PMH of Afib CHF, HTN Denies new complains Leukocytosis is improving, Hb stable I/O +[id number] ECHO reports hows EF 60%, indeterminate diastolic function moderate Pulm HTN Patient's chem shows slightly increased creatinine Will repeat CXR and hold lasix - Constitutional Vitals: Temp Pulse Resp BP Pulse Ox 98.2 F 105 18 113/75 96 03/27/17 07:39 03/27/17 07:52 03/27/17 07:39 03/27/17 07:39 03/27/17 07:39 VSS, O2 sat 92-96% on NC Gen: Not in any form of distress, speaks full sentences, Neuro: AAOX3, moves all limbs spontaneously, no focal deficits, no speech abnormality or facial asymmetry HEENT: Moist mucosa, no cyanosis, RAN Chest: audible wheezes, no rhonchi, no stridor. Heart: S1, S2, no m/g/r Abdomen: Soft, not tender, no palpably enlarged organs Extremities: No edema, chronic venous stasis changed Internal Medicine: Result - Labs CBC & Chem 7: 03/27/17 03:48 03/27/17 03:48 Labs: Short CBC 03/27/17 Range/Units 03:48 WBC 11.5 H (4.3-11.1) K/mcL Hgb 8.4 L (11.5-15.4) g/dL Hct 25.5 L (35.3-44.9) % Plt Count 220 (140-400) K/mcL Neutrophils # 7.8 (1.6-8.9) K/mcL BMP 03/27/17 03:48 Sodium 135 L Potassium 3.8 Chloride 102 Carbon Dioxide 27 BUN 35 H Creatinine 1.94 H Glucose 107 H Calcium 8.2 L - Impressions Impressions Chest X-Ray 03/27/17 09:47 IMPRESSION: Probable small left effusion and bibasilar atelectasis. D/ / Baldo Nieto MD / Baldo Nieto MD Interpreting Provider: Baldo Nieto MD - VTE Documentation of Mechanical Device: Intermittent pneumatic compression device Consult Discharge Plan - Plan Referrals: Mac Castillo MD [Partnered Physician] - 04/23/17 1:30 pm Anthony Pierce DO [Partnered Physician] - 05/09/17 3:00 pm () Saturnino Anguiano MD [Partnered Physician] - 04/10/17 8:45 am Wade Waters MD [Primary Care Provider] - 03/31/17 3:15 pm
[2017-03-27] MEDS: Acetaminophen 325 MG TABLET PO PRN (12:13)
[2017-03-27] MEDS ORDERED: Ondansetron ODT 4 MG TAB.RAPDIS SL PRN (15:44)
[2017-03-27] MEDS: Sennosides/Docusate Sodium TABLET PO SCH (20:54)
[2017-03-27] MEDS ORDERED: Insulin LISPRO 300 UNITS/3 ML VIAL SQ SCH (21:00)
[2017-03-27] MEDS: *HR* OxyCODONE Immed Rel 5 MG TABLET PO PRN (21:01)
[2017-03-28] MEDS: Ipratropium/Albuterol Neb 3 ML IH SCH ×2 (04:06→11:56)
[2017-03-28 05:09] LABS: Calcium 8.2 mg/dL (8.6-10.8); Potassium 3.8 mEq/L (3.5-4.5)
[2017-03-28 05:52] LABS: Basophils % 0.3 %; Eosinophils # 0.2 K/mcL (0.0-0.6); Hematocrit 26.7 % (35.3-44.9); Hemoglobin 8.4 g/dL (11.5-15.4); Immature Granulocytes % 1.3 % (0-4); Immature Platelets 1.7 % (1.1-6.1); Lymphocytes # 1.7 K/mcL (0.6-4.6); Mean Corpuscular HGB Conc 31.5 g/dL (31.6-35.5); Mean Corpuscular Hemoglobin 30.4 pg (28.0-33.3); Mean Corpuscular Volume 96.7 fL (83.0-100.0); Mean Platelet Volume 8.6 fL (9.4-12.4); Monocytes # 1.4 K/mcL (0.0-1.3); Monocytes % 12.4 %; Neutrophils # 7.9 K/mcL (1.6-8.9); Nucleated Red Blood Cells 0.2 /100 WBC (0); Platelet Count 302 K/mcL (140-400); Red Blood Count 2.76 M/mcL (3.82-4.97); Red Cell Distribution Width 15.8 % (11.5-14.5)
--- NOTE | 2017-03-28 08:33 | Urology Progress Note ---
Date of Encounter: 03/28/17 Time of Encounter: 08:31 - Assessment and Plan (1) Renal mass Current Visit: Yes Status: Acute Assessment and plan: Postop day #7. 1. Continue mechanical soft diet as tolerated. 2. Appreciate IM support. Watters catheter removed today. Holding diuresis. 3. Disposition planning. Considered discharge to rehabilitation facility today. We'll discuss further with internal medicine. 4. Hemoglobin and hematocrit are stable. 5. Continue ambulation. (2) CKD (chronic kidney disease), stage III Current Visit: Yes Status: Chronic (3) Obesity Current Visit: No Status: Chronic Qualifiers: Obesity type: unspecified obesity type Qualified Code(s): E66.9 - Obesity, unspecified (4) Spleen hematoma Current Visit: Yes Status: Acute Qualifiers: Encounter type: subsequent encounter Qualified Code(s): S36.029D - Unspecified contusion of spleen, subsequent encounter (5) Atrial fibrillation with rapid ventricular response Current Visit: Yes Status: Acute (6) Anemia Current Visit: No Status: Acute Qualifiers: Anemia type: other cause Other causes of anemia: acute posthemorrhagic Qualified Code(s): D62 - Acute posthemorrhagic anemia Progress Note Narrative: Postop day #7 status post left hand-assisted laparoscopic nephrectomy. She had a splenic capsule injury. Her hemoglobin has been stable. She is passing flatus. She is tolerating a soft diet. Medicine has been consulted and has been diuresing her. Lasix was stopped yesterday. She is ambulating. Her pain is adequately controlled. Creatinine is stable today. Objective Initial Vital Signs Temp Pulse Resp BP Pulse Ox 97.5 F L 62 18 135/66 96 03/21/17 08:00 03/21/17 08:00 03/21/17 08:00 03/21/17 08:00 03/21/17 08:00 - General physical appearance Present: well developed, well nourished, no distress - Respiratory Present: normal respiratory effort - Abdomen Present: soft (incisions are c,d,i.) - Labs 03/28/17 05:18 03/28/17 04:35 Diabetes panel 03/28/17 Range/Units 04:35 Sodium 136 (136-145) mEq/L Potassium 3.8 (3.5-4.5) mEq/L Chloride 102 (98-109) mEq/L Carbon Dioxide 23 (19-29) mEq/L BUN 39 H (7-20) mg/dL Creatinine 1.89 H (0.57-1.11) mg/dL Glucose 116 H (70-99) mg/dL Calcium 8.2 L (8.6-10.8) mg/dL Calcium panel 03/28/17 Range/Units 04:35 Calcium 8.2 L (8.6-10.8) mg/dL Pituitary panel 03/28/17 Range/Units 04:35 Sodium 136 (136-145) mEq/L Potassium 3.8 (3.5-4.5) mEq/L Chloride 102 (98-109) mEq/L Carbon Dioxide 23 (19-29) mEq/L BUN 39 H (7-20) mg/dL Creatinine 1.89 H (0.57-1.11) mg/dL Glucose 116 H (70-99) mg/dL Calcium 8.2 L (8.6-10.8) mg/dL Adrenal panel 03/28/17 Range/Units 04:35 Sodium 136 (136-145) mEq/L Potassium 3.8 (3.5-4.5) mEq/L Chloride 102 (98-109) mEq/L Carbon Dioxide 23 (19-29) mEq/L BUN 39 H (7-20) mg/dL Creatinine 1.89 H (0.57-1.11) mg/dL Glucose 116 H (70-99) mg/dL Calcium 8.2 L (8.6-10.8) mg/dL - VTE Documentation of Mechanical Device: Intermittent pneumatic compression device Consult Discharge Plan - Plan Referrals: Mac Castillo MD [Partnered Physician] - 04/23/17 1:30 pm Anthony Pierce DO [Partnered Physician] - 05/09/17 3:00 pm () Saturnino Anguiano MD [Partnered Physician] - 04/10/17 8:45 am Wade Waters MD [Primary Care Provider] - 03/31/17 3:15 pm
[2017-03-28] MEDS: Famotidine 20 MG TABLET PO SCH (08:36)
[2017-03-28] MEDS: Sennosides/Docusate Sodium TABLET PO SCH (08:36)
[2017-03-28] MEDS: Diltiazem CD (24hr) 120 MG CAPSULE PO SCH (08:36)
--- NOTE | 2017-03-28 08:36 | Physician Discharge Referral ---
ExtendedCare Referral Info Transfer To: Rehab Provider in Charge: patria Provider in Charge after Transfer: PCP Institutional Level of Care: Skilled - Diagnosis (1) Renal mass Priority: Primary Status: Acute (2) CKD (chronic kidney disease), stage III Priority: Secondary Status: Chronic (3) Obesity Status: Chronic (4) Spleen hematoma Status: Acute (5) Atrial fibrillation with rapid ventricular response Status: Acute (6) Anemia Status: Acute Expected Duration of Placement: 7-14 days Prognosis: Good Aware of Diagnosis: Patient Aware of Prognosis: Patient - Transfer Medications Prescriptions: OxyCODONE Immed Rel [Roxicodone 5 MG] 10 mg PO Q6HR PRN #25 tablet PRN Reason: Moderate pain 4-6 Diltiazem CD (24hr) [Cardizem CD] 120 mg PO DAILY #30 cap.er.24h Sennosides/Docusate Sodium [Senna Plus] 2 each PO BID #30 tablet Home Medications: Atorvastatin [Lipitor] 40 mg PO HS tablet 07/03/15 [Rx] Losartan [Cozaar] 100 mg PO DAILY #30 tablet 07/03/15 [Rx] Aspirin Enteric Coated [Aspirin EC] 81 mg PO DAILY 08/08/15 [History] Furosemide [Lasix] 40 mg PO HS 09/26/15 [History] Potassium Chloride [Klor-Con Sprinkle] 10 meq PO BID 09/26/15 [History] Calcium Citrate/Vitamin D3 [Calcium Citrate-Vit D3 Tablet] 1 each PO DAILY 03/31 [History] Cholecalciferol (Vitamin D3) [Vitamin D3] 2,000 unit PO DAILY 03/31/16 [History] Clindamycin HCl [Cleocin HCl] 300 mg PO DAILY 03/31/16 [History] Glucosamine Sulfate Dipot Chlr [Glucosamine] 500 mg PO DAILY 03/31/16 [History] Vit C/Vit E/Lutein/Min/[place]-3 [Ocuvite Softgel] 1 cap PO DAILY 03/31/16 [ History] Ferrous Sulfate 325 mg PO BIDWM #60 tablet 07/25/16 [Rx] Rivaroxaban [Xarelto] 15 mg PO 1700 #30 tablet 07/26/16 [Rx] Metoprolol [Lopressor] 25 mg PO BID 03/21/17 [History] Vit C/Vit E/Lutein/Min/[place]-3 [Ocuvite Softgel] 1 each PO DAILY 03/21/17 [ History] Diltiazem CD (24hr) [Cardizem CD] 120 mg PO DAILY #30 cap.er.24h 03/28/17 [Rx] OxyCODONE Immed Rel [Roxicodone 5 MG] 10 mg PO Q6HR PRN #25 tablet 03/28/17 [Rx] Sennosides/Docusate Sodium [Senna Plus] 2 each PO BID #30 tablet 03/28/17 [Rx] Allergies/Adverse Reactions: Allergies No Known Allergies Allergy (Verified 03/21/17 08:34) - Respiratory Orders Smoking Cessation: Smoking cessation has been advised. For more information, call the [place] Tobacco Quit Line at 7-161-PARD-NOW. - Ancillary Orders May use pressure relief devices daily prn, May go on AGNIESZKA w/family/respon republican w /meds at nurse discretion PRN - Advance Directives Code Status: Full Code - Mobility Orders Ambulate - Rehabiliation Orders Rehab Potential: Good Rehab Orders: Evaluation for Physical Therapy, Evaluation for Occupational Therapy - Diet Orders Mechanical Soft CERTIFICATION: I certify that the transfer of the above named patient to an Extended Care Facility is necessary for the continuing treatment of the diagnosis listed. The above information is true and accurate reflection of patient's current condition. Confidential - Redisclosure prohibited without a patient's written consent.
[2017-03-28] MEDS: Insulin LISPRO 300 UNITS/3 ML VIAL SQ SCH ×2 (08:37→11:46)
--- NOTE | 2017-03-28 08:49 | Discharge Summary ---
Date of Encounter: 03/28/17 Time of Encounter: 08:45 - Discharge Diagnosis (1) Renal mass Priority: Primary Status: Acute (2) CKD (chronic kidney disease), stage III Priority: Secondary Status: Chronic (3) Obesity Priority: Secondary Status: Chronic Qualifiers: Obesity type: unspecified obesity type Qualified Code(s): E66.01 - Morbid ( severe) obesity due to excess calories (4) Spleen hematoma Priority: Secondary Status: Acute Qualifiers: Encounter type: subsequent encounter Qualified Code(s): S36.029D - Unspecified contusion of spleen, subsequent encounter (5) Atrial fibrillation with rapid ventricular response Priority: Secondary Status: Acute (6) Anemia Priority: Secondary Status: Acute Qualifiers: Anemia type: other cause Other causes of anemia: acute posthemorrhagic Qualified Code(s): D62 - Acute posthemorrhagic anemia - Discharge Medications Prescriptions: OxyCODONE Immed Rel [Roxicodone 5 MG] 10 mg PO Q6HR PRN #25 tablet PRN Reason: Moderate pain 4-6 Diltiazem CD (24hr) [Cardizem CD] 120 mg PO DAILY #30 cap.er.24h Sennosides/Docusate Sodium [Senna Plus] 2 each PO BID #30 tablet Home Medications: Atorvastatin [Lipitor] 40 mg PO HS tablet 07/03/15 [Rx] Losartan [Cozaar] 100 mg PO DAILY #30 tablet 07/03/15 [Rx] Aspirin Enteric Coated [Aspirin EC] 81 mg PO DAILY 08/08/15 [History] Furosemide [Lasix] 40 mg PO HS 09/26/15 [History] Potassium Chloride [Klor-Con Sprinkle] 10 meq PO BID 09/26/15 [History] Calcium Citrate/Vitamin D3 [Calcium Citrate-Vit D3 Tablet] 1 each PO DAILY 03/31 [History] Cholecalciferol (Vitamin D3) [Vitamin D3] 2,000 unit PO DAILY 03/31/16 [History] Clindamycin HCl [Cleocin HCl] 300 mg PO DAILY 03/31/16 [History] Glucosamine Sulfate Dipot Chlr [Glucosamine] 500 mg PO DAILY 03/31/16 [History] Vit C/Vit E/Lutein/Min/[place]-3 [Ocuvite Softgel] 1 cap PO DAILY 03/31/16 [ History] Ferrous Sulfate 325 mg PO BIDWM #60 tablet 07/25/16 [Rx] Rivaroxaban [Xarelto] 15 mg PO 1700 #30 tablet 07/26/16 [Rx] Metoprolol [Lopressor] 25 mg PO BID 03/21/17 [History] Vit C/Vit E/Lutein/Min/[place]-3 [Ocuvite Softgel] 1 each PO DAILY 03/21/17 [ History] Diltiazem CD (24hr) [Cardizem CD] 120 mg PO DAILY #30 cap.er.24h 03/28/17 [Rx] OxyCODONE Immed Rel [Roxicodone 5 MG] 10 mg PO Q6HR PRN #25 tablet 03/28/17 [Rx] Sennosides/Docusate Sodium [Senna Plus] 2 each PO BID #30 tablet 03/28/17 [Rx] Allergies/Adverse Reactions: Allergies No Known Allergies Allergy (Verified 03/21/17 08:34) Labs on day of discharge: Labs from last 24 hours 03/28/17 03/28/17 03/28/17 05:18 05:11 04:35 WBC 11.5 H RBC 2.76 L Hgb 8.4 L Hct 26.7 L MCV 96.7 MCH 30.4 MCHC 31.5 L RDW 15.8 H Plt Count 302 MPV 8.6 L Immature Gran % 1.3 Seg Neutrophils % 69.0 Lymphocytes % 15.0 Monocytes % 12.4 Eosinophils % 2.0 Basophils % 0.3 Neutrophils # 7.9 Lymphocytes # 1.7 Monocytes # 1.4 H Eosinophils # 0.2 Basophils # 0.0 Nucleated RBCs/100 WBC 0.2 H Immature Plt Fraction 1.7 Sodium 136 Potassium 3.8 Chloride 102 Carbon Dioxide 23 BUN 39 H Creatinine 1.89 H Est GFR ( Amer) 32 L Est GFR (Non-Af Amer) 26 L BUN/Creatinine Ratio 21 Glucose 116 H POC Glucose Calculated Osmolality 292 Calcium 8.2 L Specimen Rejected Clotted 03/27/17 03/27/17 03/27/17 20:52 16:42 11:19 WBC RBC Hgb Hct MCV MCH MCHC RDW Plt Count MPV Immature Gran % Seg Neutrophils % Lymphocytes % Monocytes % Eosinophils % Basophils % Neutrophils # Lymphocytes # Monocytes # Eosinophils # Basophils # Nucleated RBCs/100 WBC Immature Plt Fraction Sodium Potassium Chloride Carbon Dioxide BUN Creatinine Est GFR ( Amer) Est GFR (Non-Af Amer) BUN/Creatinine Ratio Glucose POC Glucose 164 H 115 H 188 H Calculated Osmolality Calcium Specimen Rejected 03/27/17 05:38 WBC RBC Hgb Hct MCV MCH MCHC RDW Plt Count MPV Immature Gran % Seg Neutrophils % Lymphocytes % Monocytes % Eosinophils % Basophils % Neutrophils # Lymphocytes # Monocytes # Eosinophils # Basophils # Nucleated RBCs/100 WBC Immature Plt Fraction Sodium Potassium Chloride Carbon Dioxide BUN Creatinine Est GFR ( Amer) Est GFR (Non-Af Amer) BUN/Creatinine Ratio Glucose POC Glucose 120 H Calculated Osmolality Calcium Specimen Rejected - Impressions ITS Impressions Abdomen/Pelvis CT 03/22/17 10:28 IMPRESSION: 1. Status post left nephrectomy with expected postsurgical fluid and air. 2. Large, 13 x 7.8 cm hemorrhagic appearing fluid collection involving the spleen parenchyma and subcapsular margin of the spleen. There is extension of the hemorrhage into the pelvis with hemorrhagic appearing free fluid. 3. Left adrenal hemorrhage 3.2 x 2.1 cm. 4. Cholelithiasis. 5. Ascites. 6. Small effusions with bilateral lower lobe consolidation. Dr. Saturnino Anguiano was notified at 11:39 a.m. on 03/22/2017. D/ / 03/22/2017 11:46:59 Jamshid Laguna MD / omar Interpreting Provider: Jamshid Laguna MD Abdomen/Pelvis CT 03/24/17 15:00 IMPRESSION: 1. Grossly stable splenic subcapsular hematoma. Hemorrhagic fluid tracking in the left pericolic gutter into the pelvis is stable or slightly improved. Interval decrease in ascites. No free air. 2. Stable left adrenal mass likely representing hemorrhagic change. 3. Status post left nephrectomy. Infiltration of the fat in the left flank with subcutaneous gas extending into the anterior abdomen. No focal subcutaneous collection. 4. Small bilateral pleural effusions, slightly increased. Dependent bilateral lower lobe atelectasis. D/ / 03/24/2017 16:18:10 Mac Gray MD / Ivana Castillo Interpreting Provider: Mac Gray MD Chest X-Ray 03/24/17 15:24 IMPRESSION: Findings suggestive of mild edema with small bilateral pleural effusions. D/ / Parvin Tijerina MD / Parvin Tijerina MD Interpreting Provider: Parvin Tijerina MD Chest X-Ray 03/25/17 08:46 IMPRESSION: Stable cardiomegaly. Low lung volumes. Moderate pulmonary vascular congestion, increased. Patchy airspace opacities bilaterally, most pronounced at the left lung base, likely related to pulmonary edema versus atelectasis or pneumonia, progressed at the left lung base, improved at the right lung base. Moderate left pleural effusion, increased. Mild right pleural effusion, improved. D/ / Viral Echeverria MD / Viral Echeverria MD Interpreting Provider: Viral Echeverria MD Chest X-Ray 03/27/17 09:47 IMPRESSION: Probable small left effusion and bibasilar atelectasis. D/ / Baldo Nieto MD / Baldo Nieto MD Interpreting Provider: Baldo Nieto MD Date of admission: 03/21/17 16:06 Primary care physician: Wade Waters MD Consults: 03/21/17 16:46 Consult to Manager Economic [CONS] Routine Reason for SW Consult: Possible rehab 03/22/17 07:48 Consult to Physical Therapy [CONS] Routine Comment: Evaluate, develop and implement POC. Ambulate. 03/22/17 11:59 Consult to Surgery [CONS] Routine Consulting Provider: Simon Melendez Reason for Consult: Spleen injury Call Completed: Yes 03/23/17 08:28 Consult to Cardiology [CONS] Routine Comment: Consulting Provider: Cardiology Hume Reason for Consult: A-fib, RVR Call Completed: Yes 03/25/17 07:15 Consult to Hospitalist [CONS] Routine Consulting Provider: Hospitalist Luís Reason for Consult: medical management Call Completed: Yes 03/25/17 08:20 Consult to Invasive Line Access Team [CONS] Routine Reason for Consult: limited vascular access Line Type: EPIV 03/25/17 13:27 Consult to Occupational Therapy [CONS] Routine Comment: Evaluate, develop and implement POC Reason for Consult: Assist with SNF placement if necessary. Discharging clinician: Saturnino Anguiano Anticipated date of discharge: 03/28/17 - Patient Status Disposition: Transfer Inpatient Rehab Fac Condition: Fair Functional capacity at discharge: uses cane/walker Overall status at discharge: patient is progressing back to baseline - Discharge Instructions Instructions: Diltiazem (By mouth), Oxycodone, Rapid Release (By mouth), Laxative, Stimulant Combination (By mouth), Heart Failure (DC), Atrial Fibrillation (DC), Chronic Hypertension (DC), Anemia (GEN) Follow Up With: Mac Castillo MD [Partnered Physician] - 04/23/17 1:30 pm Anthony Pierce DO [Partnered Physician] - 05/09/17 3:00 pm () Wade Waters MD [Primary Care Provider] - 03/31/17 3:15 pm Saturnino Anguiano MD [Partnered Physician] - (Change appt to 04/09/2017 in [place].) Additional Instructions: 1. No heavy lifting greater than 20 pounds x2 weeks. 2. No tub baths x2 weeks. 3. May shower. 4. She should follow up in 2 weeks for postoperative check. 5. She should return for any fevers, chills, nausea, vomiting, or significant swelling/ecchymosis. 6. Hold anticoagulants x 1 week. Hold night time lasix until seen by primary care physician. - Diet and Activity Activity: as per physical therapy, increase activity as tolerated Diet: other (Mechanical soft) - Hospital Course Hospital course: Ms. Carpio is a 76 year old female who underwent a left hand assisted laparoscopic nephrectomy on 03/21/2017. She had a left renal mass. The surgery was notable for a splenic capsule tear. She had bleeding after surgery and required 3 units of red blood cell transfusions. General surgery was consulted. She developed atrial fibrillation with rapid ventricular rate. Cardiology was consulted and managed her heart rate. She became fluid overloaded after the resuscitation for the bleeding and required diuresis. I requested assistance from internal medicine and they managed her pulmonary function and diuresis. Her diet was slowly advanced. By postoperative day #7 her blood counts are stable. She was tolerating general diet. Her pain was adequately controlled. She was ambulating well. Her breathing status was stable. She was then deemed ready for discharge to a rehabilitation facility. - Time Spent with Patient Total time spent providing and/or coordinating discharge services: Less than 30 minutes Exam Initial Vital Signs Temp Pulse Resp BP Pulse Ox 97.5 F L 62 18 135/66 96 03/21/17 08:00 03/21/17 08:00 03/21/17 08:00 03/21/17 08:00 03/21/17 08:00 - General physical appearance Present: well developed, well nourished, no distress - Eyes Absent: icteric - ENT Present: normal nares - Neck Present: trachea midline - Respiratory Present: normal respiratory effort - Cardiovascular Cardiovascular exam IM: RRR - Abdomen Abdomen: Present: soft - VTE Documentation of Mechanical Device: Intermittent pneumatic compression device
--- NOTE | 2017-03-28 10:25 | Event Note ---
Date of Encounter: 03/28/17 Time of Encounter: 10:25 Seen and evaluated at bedside 76 F was consulted for anemia and fluid overload ECHO was normal EF with indeterminate diastolic function, anemia has imprved Lasix has been held since 03/27 due to worsening Cr Her anticoagulation for Afib continues to be held She is seen at bedside, asymptomatic Physical Exam: VSS, not in distress, speaks full sentences, chest is elma, heart : S1, S2 only, irregular, no m/g/r, abdomen is bening, LE with chronic venous stasis changes Labs and Imaging reviewd: CXR from 03/27: No infiltrates or edema, atelectasis, HB stable, Cr improved We will sign off this case and recommend to continue to hold off lasix, and only use prn, patient may be discharged on her current meds Per surgery, they will continue to hold anticoagulation for now
[2017-03-28 11:25] VITALS: BP 148/96
== END 2017-03-28 13:45 | disposition other institution (70) | DRG 656 ==
LOC: SAMDAY 07:39 → 3ANU 16:06 → 2NNU 03-22 11:33
PROVIDERS: ADMIT Urology; ATTEND Urology

== ENCOUNTER 2019-02-02 14:23 | Inpatient (IN) ==
[2019-02-02] MEDS ORDERED: Naloxone 0.4 MG/ML INJ IVP PRN (16:54)
[2019-02-02] MEDS ORDERED: *HR* Dextrose 50 % in Water (Syg) 50 ML SYRINGE IVP PRN (16:58)
[2019-02-02] MEDS ORDERED: D5% in Water 1,000 ML IVC PRN (16:58)
[2019-02-02] MEDS ORDERED: Dextrose Gel 15 GM/37.5 ML TUBE PO PRN ×2 (16:58)
--- NOTE | 2019-02-02 17:30 | Internal Med History&Physical ---
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 Carpio is a 78 year old female PMH of renal cell CA s/p nephrectomy, with recurrence of the tumor at the nephrectomy site, liver metastasis, CKD, A.fib s/p pacemaker placement, HTN, DM, CAD and hypothyroidism. Patient was admitted to the hospital due to worsening kidney function. Patient reported she was admitted to [facility] in [place] about 2 weeks ago due to pneumonia, she was hospitalized there for about 1 week and was discharged to [facility] rehab. She reports being on furosemide due to fluid retention in her legs, but she has not received the medication for about 2 days because of worsening kidney function. Today she was sent to [facility] due to worsening kidney function. creat 1.32 on 12/07/18 and today 3.29. Patient reports good urinary output, and denies w orsening of her edema in the lower extremities. Denies chest pain, shortness of breath, fever/chills. Nausea or vomiting. Denies diarrhea, reports constipation. Past Med Surg Social Fam HX - Past Medical History Medical history: arthritis, atrial fibrillation, cancer (Remote breast cancer. Left renal cell carcinoma and nephrectomy), hyperlipidemia, hypertension, malignancy (Breast cancer and renal cell carcinoma), renal disease (Chronic kidney disease and recent acute kidney injury), thyroid disease (History of hypothyroidism), other Additional medical history: renal cancer, ascites Psychiatric history: no psych history - Past Surgical History Surgical History: breast surgery, cancer surgery, cataract, hip replacement, orthopedic, other, sinus surgery, other Additional surgical history: EPHRECTOMY -2016,ROTATOR CUFF REPAIR, TUBAL LIGATION, MASTECTOMY, TRIGGER FINGER,TONSILLECTOMY,ABLATION OF HEART 2013,LEFT TOTAL HIP REPLACEMENT, - Social History Smoking Status: Former smoker Smokeless Tobacco Status: No Alcohol use: none Drug use: none - Family History Mother Living Status: Hx Family Cardiac Disorders: Yes (htn, chf ) Hx Family Neurologic Disorders: Yes (aneurysm) Father Living Status: Hx Family Cardiac Disorders: Yes (cad,mi) Hx Family Cancer: Yes (lymphoma) Internal Medicine - H&P: Meds Atorvastatin [Lipitor] 40 mg PO HS tablet 07/03/15 [Rx] Aspirin Enteric Coated [Aspirin EC] 81 mg PO DAILY 08/08/15 [History] Furosemide [Lasix] 40 mg PO DAILY 09/26/15 [History] Potassium Chloride [Klor-Con Sprinkle] 40 meq PO BID 09/26/15 [History] Calcium Citrate/Vitamin D3 [Calcium Citrate-Vit D3 Tablet] 1 each PO DAILY 03/31/16 [History] Cholecalciferol (Vitamin D3) [Vitamin D3] 2,000 unit PO BID 03/31/16 [History] Glucosamine Sulfate Dipot Chlr [Glucosamine] 1,000 mg PO BID 03/31/16 [History] Metoprolol [Lopressor] 12.5 mg PO BID 03/21/17 [History] Vit C/Vit E/Lutein/Min/[place]-3 [Ocuvite Softgel] 1 each PO DAILY 03/21/17 [History] Oxybutynin Chloride [Ditropan Xl] 10 mg PO DAILY 05/12/17 [History] Mv W-Ca/Iron/FA/Lutein/Hrb#179 [Nik Multivit For Women Caplet] 1 each PO DAILY 07/25/18 [History] Pazopanib HCl [Votrient] 600 mg PO DAILY 09/30/18 [History] Levothyroxine [Synthroid] 112 mcg PO DAILY@0630 01/19/19 [History] Morphine Immed Rel [Morphine Sulfate] 15 mg PO Q12HR 01/19/19 [History] OxyCODONE Immed Rel [Roxicodone 5 MG] 5 mg PO Q6H PRN 01/19/19 [History] Docusate [Colace] 100 mg PO DAILY 01/26/19 [History] Omeprazole [PriLOSEC] 20 mg PO DAILY 01/26/19 [History] Ondansetron ODT [Zofran ODT] 4 mg SL Q8HR PRN 01/26/19 [History] Polyethylene Glycol 3350 [MiraLAX] 17 gm PO DAILY 01/26/19 [History] Vitamin A 10,000 unit PO DAILY 01/26/19 [History] Diltiazem CD (24hr) [Cardizem CD] 120 mg PO DAILY cap.er.24h 02/02/19 [Rx] Warfarin [Coumadin] 4 mg PO DAILY@1800 tablet 02/02/19 [Rx] 3 Allergy/AdvReac Type Severity Reaction Status Date / Time No Known Allergies Allergy Verified 09/30/18 17:52 All Systems PM: A 10-system review of systems was performed and is negative for pertinent findings except as documented above in the HPI. - Constitutional Constitutional: no anorexia, no chills, no fever(s) - EENT Eyes: no blurry vision Nose, mouth and throat: no dry mouth - Cardiovascular Cardiovascular ROS IM: edema, no chest pain, no dyspnea, no lightheadedness, no orthopnea, no palpitations, no paroxysmal nocturnal dyspnea, no syncope - Respiratory Respiratory: no cough, no wheezing - Gastrointestinal Gastrointestinal: constipation, no abdominal pain, no diarrhea, no melena, no nausea, no vomiting - Musculoskeletal Musculoskeletal ROS IM: muscle weakness - Neurological Neurological ROS: no headache(s) - Psychiatric Psychiatric: no anxiety, no hopelessness - Endocrine Endocrine IM: no polydipsia, no polyphagia, no polyuria - Hematologic/Lymphatic Hematologic/Lymphatic: no lymphadenopathy - Allergic/Immunologic Allergic/Immunologic: no GI upset with certain foods Additional comments: Rest of a 10 review of system negative. - Constitutional Vitals: Temp Pulse Resp BP Pulse Ox 98.7 F 67 15 110/73 92 02/02/19 17:08 02/02/19 17:08 02/02/19 17:08 02/02/19 17:08 02/02/19 17:08 Exam: Vitals: Reviewed General: Alert and oriented x4. In no distress Skin: Normal color, no rash, no lesions. HEENT: EOM, pupils equal, round and reactive. Cardiovascular: Irregularly, irregular, normal S1 & S2, no rubs, murmurs or gallops. Lungs: CTA b/l, no wheezes or crackles. Abdomen: Obese, soft, non-tender, no rigidity. hepatomegaly Extremities: 2+ edema in the lower extr b/l. Neurological:Normal cognition Rest of the physical exam is non contributory - Assessment and Plan (1) Acute kidney injury superimposed on chronic kidney disease Current Visit: No Status: Acute Assessment and plan: Patient recently on furosemide. sent for worsening kidney function. Plan will start patient on gently IV hydration with caution monitoring of volume status hold furosemide UA for cast Nephrology consulted recommendations appreciated Urine electrolytes daily weight and strict intake and output. retro-peritoneal US r/o obstructive uropathy (2) Anemia Current Visit: No Status: Chronic Assessment and plan: patient on warfarin. FOBT ordered will add ferrous sulfate 325mg/PO daily Monitor H&H and transfuse per protocol Qualifiers: Anemia type: unspecified type Qualified Code(s): D64.9 - Anemia, unspecified (3) Edema of both lower extremities Current Visit: No Status: Acute Assessment and plan: keep compression stocking furosemide held due to worsening kidney function (4) Acquired hypothyroidism Current Visit: No Status: Chronic Assessment and plan: will continue levothyroxine 112 mcg/po daily. home dose. (5) Afib Current Visit: No Status: Chronic Assessment and plan: rate controlled on metoprolol and cardizem. will resume home medication warfarin per pharmacy protocol telemetry monitoring Qualifiers: Atrial fibrillation type: chronic Qualified Code(s): I48.2 - Chronic atrial fibrillation (6) HTN (hypertension) Current Visit: No Status: Chronic Assessment and plan: patient re-started on her home dose of metoprolol and cardizem. will monitor and adjust the medications accordingly Qualifiers: Hypertension type: essential hypertension Qualified Code(s): I10 - Essential (primary) hypertension (7) Obesity Current Visit: No Status: Chronic Qualifiers: Obesity type: due to excess calories Obesity classification: unspecified obesity classification Serious obesity comorbidity presence: with serious comorbidity Qualified Code(s): E66.09 - Other obesity due to excess calories (8) S/P cardiac pacemaker procedure Current Visit: No Status: Chronic (9) S/p nephrectomy Current Visit: No Status: Chronic Assessment and plan: as per patient there is recurrence of the cancer at the nephrectomy site. (10) DVT prophylaxis Current Visit: Yes Status: Acute Assessment and plan: started on heparin subq (11) Metastatic renal cell carcinoma Current Visit: No Status: Chronic Assessment and plan: as per patient she on oral morphine extended release for pain control. pharmacy to verify medication. Qualifiers: Laterality: left Qualified Code(s): C64.2 - Malignant neoplasm of left kidney, except renal pelvis - Time Spent With Patient Total time spent is greater than 50% in coordination of care (as documented) at patient's floor/unit and/or counseling patient: Greater than 35 minutes (45)
[2019-02-02] MEDS ORDERED: *HR* Warfarin 5 MG TABLET PO ONE (18:00)
[2019-02-02] MEDS ORDERED: Warfarin perPT PO PRN (18:00)
[2019-02-02 18:34] LABS: Basophils # 0.1 K/mcL (0.0-0.2); Basophils % 0.5 %; Eosinophils # 0.2 K/mcL (0.0-0.6); Eosinophils % 2.4 %; Hematocrit 26.8 % (35.3-44.9); Immature Granulocytes % 0.3 % (0-4); Mean Corpuscular HGB Conc 29.9 g/dL (31.6-35.5); Mean Corpuscular Hemoglobin 26.7 pg (28.0-33.3); Mean Corpuscular Volume 89.3 fL (83.0-100.0); Mean Platelet Volume 8.5 fL (9.4-12.4); Monocytes # 1.4 K/mcL (0.0-1.3); Monocytes % 13.6 %; Neutrophils # 7.4 K/mcL (1.6-8.9); Platelet Count 276 K/mcL (140-400); Red Cell Distribution Width 19.1 % (11.5-14.5); Segmented Neutrophils % 73.2 %
[2019-02-02] MEDS: *HR* Heparin 5,000 UNIT/ML VIAL SQ SCH (18:34)
[2019-02-02 18:43] LABS: INR 1.1; Prothrombin Time 12.1 Seconds (9.4-12.1)
[2019-02-02 18:45] LABS: Activated Partial Thrombo Time 32.4 Seconds (26.0-36.0)
[2019-02-02 18:53] LABS: Calcium 8.7 mg/dL (8.6-10.3); Magnesium 2.6 mg/dL (1.6-2.6); Phosphorous 4.5 mg/dL (2.7-4.5)
[2019-02-03] MEDS: traMADol 50 MG TABLET PO PRN ×2 (05:45→20:23)
[2019-02-03] MEDS: *HR* Heparin 5,000 UNIT/ML VIAL SQ SCH ×2 (05:46→18:07)
[2019-02-03] MEDS: Diltiazem CD (24hr) 120 MG CAPSULE PO SCH (08:50)
[2019-02-03] MEDS: Insulin LISPRO 300 UNITS/3 ML VIAL SQ SCH ×3 (08:50→17:39)
[2019-02-03] MEDS ORDERED: 0.9 % Sodium Chloride 250 ML IVC PRN (09:48)
[2019-02-03] MEDS ORDERED: 0.9 % Sodium Chloride 1,000 ML PRIME SCH (10:00)
[2019-02-03 10:29] LABS: Hematocrit 26.3 % (35.3-44.9); Hemoglobin 7.9 g/dL (11.5-15.4); Mean Corpuscular Hemoglobin 26.7 pg (28.0-33.3); Mean Corpuscular Volume 88.9 fL (83.0-100.0); Mean Platelet Volume 8.4 fL (9.4-12.4); Platelet Count 284 K/mcL (140-400); Red Blood Count 2.96 M/mcL (3.82-4.97); Red Cell Distribution Width 18.7 % (11.5-14.5)
[2019-02-03 10:46] LABS: Calcium 8.7 mg/dL (8.6-10.3); Potassium 4.4 mEq/L (3.5-5.1)
--- NOTE | 2019-02-03 10:51 | Nephrology Consult Note ---
Date of Encounter: 02/03/19 Time of Encounter: 08:00 Assessment and Plan (1) THAD (acute kidney injury) Current Visit: Yes Status: Acute Patient with THAD superimposed on CKD stage IIIb/IV Cr 3.19 and GFR 14 - has been stable the past 3-4 days, no uremic symptoms - Baseline Cr 1.7-1.9, baseline GFR 20-30's She has received nephrotoxic agents in the past few weeks including IV dye, antibiotics, and lasix She is fluid overload on exam and has bilateral pleural effusions (L>R) Will plan for starting temporary HD and monitor for improvement of renal func tion and volume status - Risks, benefits, and alternatives discussed with the patient and she elects to proceed with temporary HD at this time Continue renal protective strategy - daily weights, I/O's, and avoid nephrotoxic agents Will stop IV fluids at this time to avoid worsening fluid overload Also check UA to evaluate for casts, proteinuria, or hematuria Thank-you for consulting [facility]. We will continue to follow (2) Acute kidney injury superimposed on chronic kidney disease Current Visit: No Status: Acute (3) CKD (chronic kidney disease) stage 4, GFR 15-29 ml/min Current Visit: Yes Status: Chronic Baseline GFR 20-30's (4) Pleural effusion Current Visit: Yes Status: Acute Bilateral, L>R. Plan for temporary HD to remove fluid slowly (5) Edema of both lower extremities Current Visit: Yes Status: Acute Continue compression (6) Anemia Current Visit: No Status: Chronic Anemia appears chronic - secondary to CKD Hgb 8.0, improved compared to previous months With starting HD, EPO is a possibility Qualifiers: Anemia type: unspecified type Qualified Code(s): D64.9 - Anemia, unspecified (7) HTN (hypertension) Current Visit: No Status: Chronic Qualifiers: Hypertension type: essential hypertension Qualified Code(s): I10 - Essential (primary) hypertension (8) Afib Current Visit: No Status: Chronic Qualifiers: Atrial fibrillation type: chronic Qualified Code(s): I48.2 - Chronic atrial fibrillation (9) Metastatic renal cell carcinoma Current Visit: No Status: Chronic Qualifiers: Laterality: left Qualified Code(s): C64.2 - Malignant neoplasm of left kidney, except renal pelvis History of Present Illness - Reason for Consult Consult date: 02/02/19 Acute Kidney Injury, Chronic Kidney Disease Requesting physician: Newton Dobson - Chief Complaint THAD on CKD - History of Present Illness Ms. Carpio is a 78 yo WF with PMH of CKD IIIb/IV, renal cancer s/p nephrectomy with recurrence at nephrectomy site, liver metastatis, A. fib s/p pacemaker, HTN, DM, CAD, and hypothyroidism. She is known patient of Dr. Pierce. She was transferred from [facility] rehab for worsening renal function. Prior to that she had been admitted to the [facility] for treatment of pneumonia. During that admission she received broad-spectrum antibiotics. She also reports that she had IV and oral contrast for recent imaging at the [facility]. She has also been on Lasix, but this has been held for the past 2 days. She denies NSAID use, outside of her normal low-dose aspirin. Today she reports that she is tired and has some dyspnea. She was able to get out of bed and sit in the chair. She reports lower extremity edema, that has been unchanged for the past several days. She also reports mild discomfort in the right side of her abdomen, where she has some swelling that is chronic in nature. This abdominal swelling has been evaluated by the [facility], without specific etiology at this time. She reports she has good appetite, and she continues to have normal urine out-put. She denies confusion, N/V, dysuria, or hematuria. Past Med Surg Social Fam HX - Past Medical History Medical history: arthritis, atrial fibrillation, cancer (Remote breast cancer. Left renal cell carcinoma and nephrectomy), hyperlipidemia, hypertension, malignancy (Breast cancer and renal cell carcinoma), renal disease (Chronic kidney disease and recent acute kidney injury), thyroid disease (History of hypothyroidism), other Additional medical history: renal cancer, ascites Psychiatric history: no psych history - Past Surgical History Surgical History: breast surgery, cancer surgery, cataract, hip replacement, orthopedic, other, sinus surgery, other Additional surgical history: EPHRECTOMY -2016,ROTATOR CUFF REPAIR, TUBAL LIGATION, MASTECTOMY, TRIGGER FINGER,TONSILLECTOMY,ABLATION OF HEART 2013,LEFT TOTAL HIP REPLACEMENT, - Social History Smoking Status: Former smoker Smokeless Tobacco Status: No Alcohol use: none Drug use: none - Family History Mother Living Status: Hx Family Cardiac Disorders: Yes (htn, chf ) Hx Family Neurologic Disorders: Yes (aneurysm) Father Living Status: Hx Family Cardiac Disorders: Yes (cad,mi) Hx Family Cancer: Yes (lymphoma) Medications and Allergies Atorvastatin [Lipitor] 40 mg PO HS tablet 07/03/15 [Rx] Aspirin Enteric Coated [Aspirin EC] 81 mg PO DAILY 08/08/15 [History] Furosemide [Lasix] 40 mg PO DAILY 09/26/15 [History] Potassium Chloride [Klor-Con Sprinkle] 40 meq PO BID 09/26/15 [History] Calcium Citrate/Vitamin D3 [Calcium Citrate-Vit D3 Tablet] 1 each PO DAILY 03/31/16 [History] Cholecalciferol (Vitamin D3) [Vitamin D3] 2,000 unit PO BID 03/31/16 [History] Glucosamine Sulfate Dipot Chlr [Glucosamine] 1,000 mg PO BID 03/31/16 [History] Metoprolol [Lopressor] 12.5 mg PO BID 03/21/17 [History] Vit C/Vit E/Lutein/Min/[place]-3 [Ocuvite Softgel] 1 each PO DAILY 03/21/17 [History] Oxybutynin Chloride [Ditropan Xl] 10 mg PO DAILY 05/12/17 [History] Mv W-Ca/Iron/FA/Lutein/Hrb#179 [Nik Multivit For Women Caplet] 1 each PO DAILY 07/25/18 [History] Pazopanib HCl [Votrient] 600 mg PO DAILY 09/30/18 [History] Levothyroxine [Synthroid] 112 mcg PO DAILY@0630 01/19/19 [History] Morphine Immed Rel [Morphine Sulfate] 15 mg PO Q12HR 01/19/19 [History] OxyCODONE Immed Rel [Roxicodone 5 MG] 5 mg PO Q6H PRN 01/19/19 [History] Docusate [Colace] 100 mg PO DAILY 01/26/19 [History] Omeprazole [PriLOSEC] 20 mg PO DAILY 01/26/19 [History] Ondansetron ODT [Zofran ODT] 4 mg SL Q8HR PRN 01/26/19 [History] Polyethylene Glycol 3350 [MiraLAX] 17 gm PO DAILY 01/26/19 [History] Vitamin A 10,000 unit PO DAILY 01/26/19 [History] Diltiazem CD (24hr) [Cardizem CD] 120 mg PO DAILY cap.er.24h 02/02/19 [Rx] Warfarin [Coumadin] 4 mg PO DAILY@1800 tablet 02/02/19 [Rx] Allergy/AdvReac Type Severity Reaction Status Date / Time No Known Allergies Allergy Verified 09/30/18 17:52 Review of Systems All Systems: reviewed and no additional remarkable complaints except as stated Exam - Vital Signs Vital signs: Initial Vital Signs Temp Pulse Resp BP Pulse Ox 98.7 F 67 15 110/73 92 02/02/19 17:08 02/02/19 17:08 02/02/19 17:08 02/02/19 17:08 02/02/19 17:08 Vital Signs - Last 8 Hours Temp Pulse Resp BP Pulse Ox 02/03/19 06:59 98.5 F 97 17 105/73 97 02/03/19 03:41 98.4 F 88 16 110/71 96 Intake and Output 02/02/19 02/03/19 02/03/19 23:59 07:59 15:59 Intake Total 1000 / 1000 Output Total 150 / 150 Balance 850 / 850 Intake: IV Fluids 1000 / 1000 0.45% Sodium Chloride 1000 Ml 1000 / 1000 1000 Ml 1,000 ML @ 75 mls/hr IVC .[id number] RAAD Rx#:[id number] Output: Urine 150 / 150 Other: Stool Size Small Stool Consistency soft Stool Characteristics Normal for Patient Stool Color Brown Weight 95 kg Blood Glucose* 208 122 - General Appearance General appearance: well-developed, well-nourished, appears started age EENT: ATNC, mucous membranes moist Neck: supple Respiratory: rales Additional Comments: diminished bilaterally with crackles present Cardiology: no murmurs, edema (bilateral LE edema), irregular rhythm Gastrointestinal: normoactive bowel sounds, tenderness (mild right sided tenderness with swelling), no guarding Integumentary: warm and dry Neurologic: no focal deficit (alert and oriented) Musculoskeletal: no cyanosis, no clubbing Psychiatric: mood/affect appropriate, cooperative Results - Lab Results 02/03/19 09:44 02/02/19 18:04 Most recent lab results Calcium 8.7 mg/dL (8.6-10.3) 02/02/19 18:04 Phosphorus 4.5 mg/dL (2.7-4.5) 02/02/19 18:04 Magnesium 2.6 mg/dL (1.6-2.6) 02/02/19 18:04 Consult Discharge Plan - Plan Referrals: Wade Waters MD [Primary Care Provider] -
[2019-02-03 11:30] LABS: Hepatitis B Surface Antibody < 3.10 mIU/mL
[2019-02-03 11:41] LABS: Hepatitis B Surface Antigen Nonreactive (Nonreactive)
[2019-02-03 11:48] LABS: INR 1.2; Prothrombin Time 13.7 Seconds (9.4-12.1)
[2019-02-03] MEDS ORDERED: Heparin 1,000 UNITS/500 mL 500 ML ONE (12:00)
[2019-02-03] MEDS ORDERED: *HR* Heparin 5,000 UNIT/ML VIAL ONE (12:35)
--- NOTE | 2019-02-03 13:33 | IR Procedure Note ---
Date of procedure: 02/03/19 Consent Obtained: Written consent Timeout: Correct patient and procedure verified, Correct site verified, Time out performed, Skin prep completed Local anesthetic: Lidocaine 1% Indications: needs dialysis Procedure Performed: right IJ tempcath Was there an construction management assistant present: No Site/Technique: right IJ Results/Findings: 16 cm triple lumen Estimated blood loss (cc): 0 Complications: None; Tolerated procedure well Post Procedure Treatment Plan: xray Specimen: NA
[2019-02-03] MEDS ORDERED: *HR* Heparin 10,000 UNIT/10 ML VIAL IV PRN (14:27)
[2019-02-03] MEDS ORDERED: 0.9 % Sodium Chloride 1,000 ML ONE (14:52)
[2019-02-03] MEDS ORDERED: *HR* Warfarin 5 MG TABLET PO ONE (18:00)
--- NOTE | 2019-02-03 18:24 | Internal Med Progress Note ---
Hospitalist Progress Note - Encounter Date of Encounter: 02/03/19 Time of Encounter: 11:00 - Subjective Interval History: Patient is a 78-year-old female with past medical history significant for renal cell CA s/p nephrectomy, with recurrence of the tumor at the nephrectomy site, liver metastasis, CKD and A.fib s/p pacemaker placement who presented due to worsening renal function. Nephrology following with recommendations for temporary hemodialysis - Exam Vitals: Temp Pulse Resp BP Pulse Ox 97.7 F 83 18 103/71 98 02/03/19 17:25 02/03/19 17:25 02/03/19 17:25 02/03/19 17:25 02/03/19 17:25 Exam: Gen.: Nonacute distress, alert and oriented 3 ENT: Mucosal membranes moist Respiratory: Lungs are clear to auscultation bilaterally without any wheezing rhonchi or rales Cardiovascular: Normal S1 and S2 regular rate rhythm no murmurs rubs or gallops Abdomen: Soft, nontender and nondistended with positive bowel sounds Extremities: No lower extremity edema Skin: Normal color - Assessment and Plan (1) Acute kidney injury superimposed on chronic kidney disease Current Visit: No Status: Acute Assessment and Plan: Patient recently on furosemide with worsening renal function. Nephrology following with recommendations for arrangement for temporary hemodialysis. Appreciate any further recommendations. (2) Anemia Current Visit: No Status: Chronic Assessment and Plan: Patient with positive FOBT on Coumadin Will continue ferrous sulfate 325mg/PO daily Monitor H&H and transfuse per protocol Will consult GI and appreciate recommendations (3) HTN (hypertension) Current Visit: No Status: Chronic Assessment and Plan: Will continue home dose of metoprolol and cardizem. (4) Afib Current Visit: No Status: Chronic Assessment and Plan: rate controlled on metoprolol and cardizem. warfarin per pharmacy protocol (5) Acquired hypothyroidism Current Visit: No Status: Chronic Assessment and Plan: will continue levothyroxine 112 mcg/po daily. home dose. (6) S/p nephrectomy Current Visit: No Status: Chronic Assessment and Plan: as per patient there is recurrence of the cancer at the nephrectomy site. (7) Metastatic renal cell carcinoma Current Visit: No Status: Chronic (8) Edema of both lower extremities Current Visit: Yes Status: Acute Assessment and Plan: keep compression stocking furosemide held due to worsening kidney function DVT Prophylaxis: Heparin subcutaneous - Time Spent with Patient Total time spent is greater than 50% in coordination of care (as documented) at patient's floor/unit and/or counseling patient: Internal Medicine: Result - Labs CBC & Chem 7: 02/03/19 09:44 02/03/19 09:44 Labs: Short CBC 02/02/19 02/03/19 Range/Units 18:04 09:44 WBC 10.2 8.6 (4.3-11.1) K/mcL Hgb 8.0 L 7.9 L (11.5-15.4) g/dL Hct 26.8 L 26.3 L (35.3-44.9) % Plt Count 276 284 (140-400) K/mcL Neutrophils # 7.4 (1.6-8.9) K/mcL BMP 02/02/19 02/03/19 18:04 09:44 Sodium 137 134 L Potassium 5.0 4.4 Chloride 105 105 Carbon Dioxide 22 L 22 L BUN 41 H 40 H Creatinine 3.19 H 3.02 H Glucose 118 H 124 H Calcium 8.7 8.7 - ABG Interpretation ABG results: PT/INR, D-dimer PT 13.7 Seconds (9.4-12.1) H 02/03/19 09:44 - Impressions Impressions Chest X-Ray 02/02/19 16:59 IMPRESSION: Cardiomegaly with mild vascular congestion. Atelectasis or infiltrates in the lung bases with bilateral pleural effusions, left worse than right. Follow up to resolution is suggested. Pacemaker. D/ / 02/02/2019 22:15:52 Shannan Emery MD / [email or web address] Interpreting Provider: Shannan Emery MD Retroperitoneum Ultrasound 02/02/19 21:00 IMPRESSION: 1. No evidence of right hydronephrosis. 2. Status post left nephrectomy. 3. Complex area lateral to spleen measuring 5.1 x 5.2 x 4.6 cm. This was previously documented on ultrasound dated 07/01/[address] This is nonspecific by ultrasound. If re-evaluation is clinically warranted, follow-up CT abdomen/pelvis may be obtained. 4. Partially imaged pleural effusion. D/ / 02/02/2019 23:16:02 Raleigh Leach MD / [email or web address] Interpreting Provider: Raleigh Leach MD Guidance Ultrasound 02/03/19 00:00 FINDINGS/IMPRESSION: ULTRASOUND-GUIDED PLACEMENT OF A RIGHT INTERNAL JUGULAR TEMPORARY DIALYSIS CATHETER. POSTPROCEDURE CHEST X-RAY TO FOLLOW. D/ / Lebron Be / Lebron Be Interpreting Provider: Lebron Be Insertion Non-Tunneled Catheter 02/03/19 00:00 FINDINGS/IMPRESSION: ULTRASOUND-GUIDED PLACEMENT OF A RIGHT INTERNAL JUGULAR TEMPORARY DIALYSIS CATHETER. POSTPROCEDURE CHEST X-RAY TO FOLLOW. D/ / Lebron Be / Lebron Be Interpreting Provider: Lebron Be Chest X-Ray 02/03/19 13:01 IMPRESSION: 1. Right internal jugular central venous catheter terminating in the distal SVC. 2. No pneumothorax identified. 3. Persistent pulmonary edema and bilateral pleural effusions. D/ / Shadi Duncan MD / Shadi Duncan MD Interpreting Provider: Shadi Duncan MD Consult Discharge Plan - Plan Referrals: Wade Waters MD [Primary Care Provider] - (2) Anemia Qualifiers: Anemia type: unspecified type Qualified Code(s): D64.9 - Anemia, unspecified (3) HTN (hypertension) Qualifiers: Hypertension type: essential hypertension Qualified Code(s): I10 - Essential (primary) hypertension (4) Afib Qualifiers: Atrial fibrillation type: chronic Qualified Code(s): I48.2 - Chronic atrial fibrillation (7) Metastatic renal cell carcinoma Qualifiers: Laterality: left Qualified Code(s): C64.2 - Malignant neoplasm of left kidney, except renal pelvis
[2019-02-03 19:54] LABS: Bilirubin,Urine Negative (Negative); Blood,Urine Negative (Negative); Clarity,Urine Clear (Clear); Color,Urine Yellow (Yellow); Glucose,Urine (UA) Normal (Normal); Ketones,Urine Negative (Negative); Leukocyte Esterase,Urine Large (Negative); Nitrite,Urine Negative (Negative); Protein,Urine 30 mg/dL (Neg-Trace); Specific Gravity,Urine 1.011 (1.010-1.025); Urobilinogen,Urine Normal (Normal)
[2019-02-03 19:58] LABS: Bacteria,Urine None Seen per hpf (None-Few); Hyaline Casts,Urine None Seen per lpf (None-Few); RBC,Urine 0-3 per hpf (0-3); Squamous Epithelial Cell,Urine Many per lpf (None-Few)
[2019-02-04 04:47] LABS: Hematocrit 24.2 % (35.3-44.9); Hemoglobin 7.4 g/dL (11.5-15.4); Mean Corpuscular HGB Conc 30.6 g/dL (31.6-35.5); Mean Corpuscular Hemoglobin 26.7 pg (28.0-33.3); Mean Corpuscular Volume 87.4 fL (83.0-100.0); Mean Platelet Volume 8.2 fL (9.4-12.4); Platelet Count 267 K/mcL (140-400); Red Blood Count 2.77 M/mcL (3.82-4.97); Red Cell Distribution Width 18.6 % (11.5-14.5)
[2019-02-04 04:56] LABS: INR 1.4; Prothrombin Time 16.1 Seconds (9.4-12.1)
[2019-02-04 05:06] LABS: Calcium 8.6 mg/dL (8.6-10.3); Potassium 3.8 mEq/L (3.5-5.1)
[2019-02-04] MEDS: *HR* Heparin 5,000 UNIT/ML VIAL SQ SCH (05:42)
[2019-02-04] MEDS: Diltiazem CD (24hr) 120 MG CAPSULE PO SCH (07:46)
[2019-02-04] MEDS: Insulin LISPRO 300 UNITS/3 ML VIAL SQ SCH ×3 (07:55→17:02)
--- NOTE | 2019-02-04 11:39 | Internal Med Progress Note ---
Hospitalist Progress Note - Encounter Date of Encounter: 02/05/19 Time of Encounter: 11:00 - Subjective Interval History: Patient is a 78-year-old female with past medical history significant for renal cell CA s/p nephrectomy, with recurrence of the tumor at the nephrectomy site, liver metastasis, CKD and A.fib s/p pacemaker placement who presented due to worsening renal function. Nephrology following with recommendations for temporary hemodialysis Patient also for acute on chronic anemia; GI consulted for evaluation - Exam Vitals: Temp Pulse Resp BP Pulse Ox 97.8 F 93 17 111/74 97 02/04/19 06:32 02/04/19 06:32 02/04/19 06:32 02/04/19 06:32 02/04/19 08:05 Exam: Gen.: Nonacute distress, alert and oriented 3 ENT: Mucosal membranes moist Respiratory: Lungs are clear to auscultation bilaterally without any wheezing rhonchi or rales Cardiovascular: Normal S1 and S2 regular rate rhythm no murmurs rubs or gallops Abdomen: Soft, nontender and nondistended with positive bowel sounds Extremities: No lower extremity edema Skin: Normal color - Assessment and Plan (1) Acute kidney injury superimposed on chronic kidney disease Current Visit: No Status: Acute Assessment and Plan: Patient with improvement in renal function this morning SCr: 3.19->3.02->-2.28 Nephrology following with recommendations for arrangement for temporary hemodialysis. Appreciate any further recommendations. (2) Anemia Current Visit: No Status: Chronic Assessment and Plan: Patient with positive FOBT on Coumadin Will continue ferrous sulfate 325mg/PO daily Monitor H&H and transfuse per protocol GI consulted and appreciate recommendations (3) HTN (hypertension) Current Visit: No Status: Chronic Assessment and Plan: Will continue home dose of metoprolol and cardizem. (4) Afib Current Visit: No Status: Chronic Assessment and Plan: rate controlled on metoprolol and cardizem. warfarin per pharmacy protocol (5) Acquired hypothyroidism Current Visit: No Status: Chronic Assessment and Plan: will continue levothyroxine 112 mcg/po daily. home dose. (6) S/p nephrectomy Current Visit: No Status: Chronic Assessment and Plan: as per patient there is recurrence of the cancer at the nephrectomy site. (7) Metastatic renal cell carcinoma Current Visit: No Status: Chronic Assessment and Plan: as per patient she on oral morphine extended release for pain control. pharmacy to verify medication. (8) Edema of both lower extremities Current Visit: Yes Status: Acute Assessment and Plan: keep compression stocking furosemide held due to worsening kidney function DVT Prophylaxis: Heparin subcutaneous - Time Spent with Patient Total time spent is greater than 50% in coordination of care (as documented) at patient's floor/unit and/or counseling patient: Internal Medicine: Result - Labs CBC & Chem 7: 02/05/19 03:03 02/05/19 03:03 Labs: Short CBC 02/04/19 Range/Units 04:22 WBC 8.2 (4.3-11.1) K/mcL Hgb 7.4 L (11.5-15.4) g/dL Hct 24.2 L (35.3-44.9) % Plt Count 267 (140-400) K/mcL BMP 02/04/19 04:22 Sodium 138 Potassium 3.8 Chloride 103 Carbon Dioxide 27 BUN 26 H Creatinine 2.28 H Glucose 97 Calcium 8.6 Urine 02/03/19 Range/Units 16:55 Urine Color Yellow (Yellow) Urine Clarity Clear (Clear) Urine pH 7.0 (5.0-8.0) pH Units Ur Specific [place] 1.011 (1.010-1.025) Urine Protein 30 H (Neg-Trace) mg/dL Urine Glucose (UA) Normal (Normal) mg/dL - ABG Interpretation ABG results: PT/INR, D-dimer PT 16.1 Seconds (9.4-12.1) H 02/04/19 04:22 - Impressions Impressions Retroperitoneum Ultrasound 02/02/19 21:00 IMPRESSION: 1. No evidence of right hydronephrosis. 2. Status post left nephrectomy. 3. Complex area lateral to spleen measuring 5.1 x 5.2 x 4.6 cm. This was previously documented on ultrasound dated 07/01/[address] This is nonspecific by ultrasound. If re-evaluation is clinically warranted, follow-up CT abdomen/pelvis may be obtained. 4. Partially imaged pleural effusion. D/ / 02/02/2019 23:16:02 Raleigh Leach MD / [email or web address] Interpreting Provider: Raleigh Leach MD Guidance Ultrasound 02/03/19 00:00 FINDINGS/IMPRESSION: ULTRASOUND-GUIDED PLACEMENT OF A RIGHT INTERNAL JUGULAR TEMPORARY DIALYSIS CATHETER. POSTPROCEDURE CHEST X-RAY TO FOLLOW. D/ / Lebron Be / Lebron Be Interpreting Provider: Lebron Be Insertion Non-Tunneled Catheter 02/03/19 00:00 FINDINGS/IMPRESSION: ULTRASOUND-GUIDED PLACEMENT OF A RIGHT INTERNAL JUGULAR TEMPORARY DIALYSIS CATHETER. POSTPROCEDURE CHEST X-RAY TO FOLLOW. D/ / Lebron Be / Lebron Be Interpreting Provider: Lebron Be Chest X-Ray 02/03/19 13:01 IMPRESSION: 1. Right internal jugular central venous catheter terminating in the distal SVC. 2. No pneumothorax identified. 3. Persistent pulmonary edema and bilateral pleural effusions. D/ / Shadi Duncan MD / Shadi Duncan MD Interpreting Provider: Shadi Duncan MD Consult Discharge Plan - Plan Referrals: Wade Waters MD [Primary Care Provider] - (2) Anemia Qualifiers: Anemia type: unspecified type Qualified Code(s): D64.9 - Anemia, unspecified (3) HTN (hypertension) Qualifiers: Hypertension type: essential hypertension Qualified Code(s): I10 - Essential (primary) hypertension (4) Afib Qualifiers: Atrial fibrillation type: chronic Qualified Code(s): I48.2 - Chronic atrial fibrillation (7) Metastatic renal cell carcinoma Qualifiers: Laterality: left Qualified Code(s): C64.2 - Malignant neoplasm of left kidney, except renal pelvis
--- NOTE | 2019-02-04 12:31 | Nephrology Progress Note ---
Date of Encounter: 02/04/19 Time of Encounter: 09:00 - Assessment and Plan (1) THAD (acute kidney injury) Current Visit: Yes Status: Acute S/p HD x1 and with good response. Will hold HD today but d/t her ongoing peripheral edema, I recommend resuming her oral diuretics. The real question is if her renal function can remain stable while controlling her volume status. 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 (2) CHF (congestive heart failure) Current Visit: Yes Status: Acute Qualifiers: Heart failure type: systolic Qualified Code(s): I50.20 - Unspecified systolic (congestive) heart failure (3) Edema of both lower extremities Current Visit: Yes Status: Acute (4) Pleural effusion Current Visit: Yes Status: Acute (5) CKD (chronic kidney disease) stage 4, GFR 15-29 ml/min Current Visit: Yes Status: Chronic Subjective Principal diagnosis: THAD on CKD Interval history: Pt was s/e and she reported feeling okay today and without N/V/D Objective - Vital Signs Vital signs: Vital Signs Temp Pulse Resp BP Pulse Ox 02/04/19 11:41 97.8 F 88 14 110/72 98 02/04/19 08:05 97 02/04/19 06:32 97.8 F 93 17 111/74 97 02/04/19 04:09 97.6 F 86 16 108/72 97 02/03/19 23:44 98.4 F 89 16 113/76 100 02/03/19 19:35 97.7 F 101 16 143/80 93 02/03/19 17:25 97.7 F 83 18 103/71 98 02/03/19 16:16 97.3 F L 18 110/71 02/03/19 16:00 112/74 02/03/19 15:45 115/78 02/03/19 15:30 127/82 02/03/19 15:15 112/76 02/03/19 15:00 115/78 02/03/19 14:45 114/73 02/03/19 14:30 108/70 02/03/19 14:15 107/73 02/03/19 14:00 97.4 F L 16 110/70 Intake and Output 02/03/19 02/04/19 02/04/19 23:59 07:59 15:59 Output Total 1225 / 1225 0 / 0 Balance -1225 / -1225 0 / 0 Output: Urine 125 / 125 0 / 0 Total Dialysis (HD) Output 1100 / 1100 Other: # Voids 1 # Bowel Movements 0 Weight 97.2 kg Blood Glucose* 158 95 105 Hemodialysis Net Fluid Removed 500 (mL) - General Appearance General appearance: Present: well-developed, well-nourished, appears started age, frail EENT: Present: ATNC, PERRL, mucous membranes moist Neck: Present: supple Respiratory: Present: clear Cardiology: Present: edema, regular rate, regular rhythm, normal S1, normal S2 Dialysis Vascular Access: Venous Catheter (with exit site C/D/I) Gastrointestinal: Present: normoactive bowel sounds, no guarding Integumentary: Present: chronic venous stasis Neurologic: Present: alert and oriented x3 Musculoskeletal: Present: no deformities, no cyanosis Psychiatric: Present: mood/affect appropriate, cooperative - Lab 02/08/19 04:20 02/08/19 04:20 Most recent lab results Calcium 8.6 mg/dL (8.6-10.3) 02/04/19 04:22 Phosphorus 4.5 mg/dL (2.7-4.5) 02/02/19 18:04 Magnesium 2.6 mg/dL (1.6-2.6) 02/02/19 18:04 Consult Discharge Plan - Plan Referrals: Wade Waters MD [Primary Care Provider] - (patient will is going to rehab)
[2019-02-04] MEDS: Furosemide 40 MG TABLET PO SCH (13:31)
[2019-02-04] MEDS: *HR* Morphine Sulfate SR (12 HR) 15 MG TABLET.ER PO SCH (14:00)
[2019-02-04] MEDS ORDERED: *HR* Warfarin 5 MG TABLET PO ONE (18:00)
[2019-02-05 03:20] LABS: Hemoglobin 7.5 g/dL (11.5-15.4); Mean Corpuscular Hemoglobin 26.3 pg (28.0-33.3); Mean Corpuscular Volume 87.7 fL (83.0-100.0); Platelet Count 264 K/mcL (140-400); Red Blood Count 2.85 M/mcL (3.82-4.97); Red Cell Distribution Width 18.5 % (11.5-14.5)
[2019-02-05 03:30] LABS: INR 1.8; Prothrombin Time 20.3 Seconds (9.4-12.1)
[2019-02-05 03:37] LABS: Calcium 8.6 mg/dL (8.6-10.3); Potassium 3.7 mEq/L (3.5-5.1)
[2019-02-05] MEDS: *HR* Morphine Sulfate SR (12 HR) 15 MG TABLET.ER PO SCH (05:42)
[2019-02-05] MEDS: Insulin LISPRO 300 UNITS/3 ML VIAL SQ SCH ×3 (07:22→17:27)
[2019-02-05] MEDS: Furosemide 40 MG TABLET PO SCH (07:35)
[2019-02-05] MEDS: Diltiazem CD (24hr) 120 MG CAPSULE PO SCH (07:35)
--- NOTE | 2019-02-05 08:29 | Internal Med Progress Note ---
Hospitalist Progress Note - Encounter Date of Encounter: 02/05/19 Time of Encounter: 11:00 - Subjective Interval History: Patient is a 78-year-old female with past medical history significant for renal cell CA s/p nephrectomy, with recurrence of the tumor at the nephrectomy site, liver metastasis, CKD and A.fib s/p pacemaker placement who presented due to worsening renal function. Renal function has improved with hemodialysis 1 Patient also for acute on chronic anemia; GI consulted for evaluation - Exam Vitals: Temp Pulse Resp BP Pulse Ox 97.5 F L 95 20 112/75 98 02/05/19 07:06 02/05/19 07:06 02/05/19 07:06 02/05/19 07:06 02/05/19 07:38 Exam: Gen.: Nonacute distress, alert and oriented 3 ENT: Mucosal membranes moist Respiratory: Lungs are clear to auscultation bilaterally without any wheezing rhonchi or rales Cardiovascular: Normal S1 and S2 regular rate rhythm no murmurs rubs or gallops Abdomen: Soft, nontender and nondistended with positive bowel sounds Extremities: No lower extremity edema Skin: Normal color - Assessment and Plan (1) Acute kidney injury superimposed on chronic kidney disease Current Visit: No Status: Acute Assessment and Plan: Renal function has improved with hemodialysis 1 SCr: 3.19->3.02->-2.28->2.45 Nephrology following and appreciate recommendations. (2) Anemia Current Visit: No Status: Chronic Assessment and Plan: Patient with positive FOBT on Coumadin Will continue ferrous sulfate 325mg/PO daily Monitor H&H and transfuse per protocol GI consulted and appreciate recommendations (3) HTN (hypertension) Current Visit: No Status: Chronic Assessment and Plan: Will continue home dose of metoprolol and cardizem. (4) Afib Current Visit: No Status: Chronic Assessment and Plan: rate controlled on metoprolol and cardizem. warfarin per pharmacy protocol (5) Acquired hypothyroidism Current Visit: No Status: Chronic Assessment and Plan: will continue levothyroxine 112 mcg/po daily. home dose. (6) S/p nephrectomy Current Visit: No Status: Chronic Assessment and Plan: as per patient there is recurrence of the cancer at the nephrectomy site. (7) Metastatic renal cell carcinoma Current Visit: No Status: Chronic Assessment and Plan: as per patient she on oral morphine extended release for pain control. pharmacy to verify medication. (8) Edema of both lower extremities Current Visit: Yes Status: Acute Assessment and Plan: keep compression stocking furosemide held due to worsening kidney function DVT Prophylaxis: Heparin subcutaneous - Time Spent with Patient Total time spent is greater than 50% in coordination of care (as documented) at patient's floor/unit and/or counseling patient: Internal Medicine: Result - Labs CBC & Chem 7: 02/05/19 03:03 02/05/19 03:03 Labs: Short CBC 02/05/19 Range/Units 03:03 WBC 7.5 (4.3-11.1) K/mcL Hgb 7.5 L (11.5-15.4) g/dL Hct 25.0 L (35.3-44.9) % Plt Count 264 (140-400) K/mcL BMP 02/05/19 03:03 Sodium 139 Potassium 3.7 Chloride 105 Carbon Dioxide 27 BUN 28 H Creatinine 2.45 H Glucose 104 Calcium 8.6 - ABG Interpretation ABG results: PT/INR, D-dimer PT 20.3 Seconds (9.4-12.1) H 02/05/19 03:03 - Impressions Impressions Chest X-Ray 02/02/19 16:59 IMPRESSION: Cardiomegaly with mild vascular congestion. Atelectasis or infiltrates in the lung bases with bilateral pleural effusions, left worse than right. Follow up to resolution is suggested. Pacemaker. D/ / 02/02/2019 22:15:52 Shannan Emery MD / [email or web address] Interpreting Provider: Shannan Emery MD Consult Discharge Plan - Plan Referrals: Wade Waters MD [Primary Care Provider] - (patient will is going to rehab) (2) Anemia Qualifiers: Anemia type: unspecified type Qualified Code(s): D64.9 - Anemia, unspecified (3) HTN (hypertension) Qualifiers: Hypertension type: essential hypertension Qualified Code(s): I10 - Essential (primary) hypertension (4) Afib Qualifiers: Atrial fibrillation type: chronic Qualified Code(s): I48.2 - Chronic atrial fibrillation (7) Metastatic renal cell carcinoma Qualifiers: Laterality: left Qualified Code(s): C64.2 - Malignant neoplasm of left kidney, except renal pelvis
--- NOTE | 2019-02-05 09:04 | Gastroenterology Consult Note ---
Date of Encounter: 02/05/19 Time of Encounter: 08:30 - Assessment and plan (1) Supratherapeutic INR Current Visit: No Status: Acute Assessment and plan: INR 1.1 on admission and today INR 1.8. Plan for EGD/colonoscopy once INR less than 1.5. (2) Anemia Current Visit: No Status: Chronic Assessment and plan: Hgb 8 on admission and today Hgb 7.5. Baseline Hgb 8-9. No melena or hematochezia noted. Continue to monitor CBC and transfuse PRBC as needed. Plan for EGD and colonoscopy once INR less than 1.5. Qualifiers: Anemia type: unspecified type Qualified Code(s): D64.9 - Anemia, unspecified - Time Spent With Patient Total time spent is greater than 50% in coordination of care (as documented) at patient's floor/unit and/or counseling patient: GI History of Present Illness - Data of Consult Consult date: 02/05/19 Requesting Physician: Ortiz Mera - Consult Narrative Reason for consult: anemia, positive FOBT History of present illness: Ms. Carpio is a 78 year old female with PMHx of renal cell CA s/p nephrectomy, with recurrence of the tumor at the nephrectomy site, liver metastasis, CKD, A.fib s/p pacemaker placement, HTN, DM, CAD and hypothyroidism. She was transferred from [facility] rehab for worsening renal function. Prior to that she had been admitted to the [facility] for treatment of pneumonia. During that admission she received broad-spectrum antibiotics. She also reports that she had IV and oral contrast for recent imaging at the [facility]. We were consulted to evaluate her anemia. She denies fever, chills, chest pain, abdominal pain, nausea, vomiting, hematemesis, melena, or hematochezia. She does admit to fatigue and mile shortness of breath. Procedures: Colonoscopy 03/05/2005 Dr. Major: Hyperplastic polyp. NSAIDs: ASA Anticoagulation: Coumadin Past Med Surg Social Fam HX - Past Medical History Medical history: arthritis, atrial fibrillation, cancer (Remote breast cancer. Left renal cell carcinoma and nephrectomy), hyperlipidemia, hypertension, malignancy (Breast cancer and renal cell carcinoma), renal disease (Chronic kidney disease and recent acute kidney injury), thyroid disease (History of hypothyroidism), other Additional medical history: renal cancer, ascites Psychiatric history: no psych history - Past Surgical History Surgical History: breast surgery, cancer surgery, cataract, hip replacement, orthopedic, other, sinus surgery, other Additional surgical history: EPHRECTOMY 5-2016,ROTATOR CUFF REPAIR, TUBAL LIGATION, MASTECTOMY, TRIGGER FINGER,TONSILLECTOMY,ABLATION OF HEART 2013,LEFT TOTAL HIP REPLACEMENT, - Social History Smoking Status: Former smoker Smokeless Tobacco Status: No Alcohol use: none Drug use: none - Family History Mother Living Status: Hx Family Cardiac Disorders: Yes (htn, chf ) Hx Family Neurologic Disorders: Yes (aneurysm) Father Living Status: Hx Family Cardiac Disorders: Yes (cad,mi) Hx Family Cancer: Yes (lymphoma) - Gastrointestinal Gastrointestinal: Present: as per HPI - Constitutional Constitutional: as per HPI - EENT Eyes: as per HPI Ears: Present: as per HPI Nose, mouth and throat: Present: as per HPI - Cardiovascular Cardiovascular ROS: Present: as per HPI - Respiratory Respiratory IM: Present: as per HPI - Genitourinary Genitourinary: Absent: change in color, Urinary frequency - Neurological ROS Neurological GI: Present: as per HPI - Hematologic/Lymphatic Hematologic/Lymphatic pediatric: Present: as per HPI - Musculoskeletal Musculoskeletal ROS GI: Present: as per HPI - Integumentary Integumentary GI: Present: as per HPI - Psychiatric ROS Psychiatric GI: Present: as per HPI - Endocrine Endocrine IM: Present: as per HPI - Constitutional Vitals: Temp Pulse Resp BP Pulse Ox 97.5 F L 95 20 112/75 98 02/05/19 07:06 02/05/19 07:06 02/05/19 07:06 02/05/19 07:06 02/05/19 07:38 General appearance: Present: cooperative, A&O X 3, no acute distress, answers questions appropriately - Head Head exam: Present: atraumatic, normocephalic - Eye Eye exam: Present: normal appearance, sclera anicteric - ENT ENT exam: Present: mucous membranes moist - Neck Neck exam general surgery: Present: normal inspection, trachea midline - Respiratory Respiratory exam: Present: decreased breath sounds, CTAB. Absent: rales, rhonchi, wheezes - Cardiovascular Cardiovascular exam: Present: RRR, +S1, +S2 - GI/Abdominal GI/Abdominal exam: Present: soft, no peritoneal signs. Absent: distended, firm, guarding, tenderness - Rectal Rectal exam: Present: deferred - Extremities Exam Extremities exam: Present: pedal edema, warm - Neurological Exam Neurological exam: Present: no focal deficits - Psychiatric Psychiatric exam: Present: normal affect, normal mood - Skin Skin exam: Present: dry, intact, normal color, warm Results - Labs CBC & Chem 7: 02/05/19 03:03 02/05/19 03:03 Labs: Last Result Calcium 8.6 mg/dL (8.6-10.3) 02/05/19 03:03 Entire Visit Hgb 7.5 g/dL (11.5-15.4) L 02/05/19 03:03 Hct 25.0 % (35.3-44.9) L 02/05/19 03:03 PT 20.3 Seconds (9.4-12.1) H 02/05/19 03:03 - ABG ABG results: PT/INR, D-dimer PT 20.3 Seconds (9.4-12.1) H 02/05/19 03:03 - Impressions Impressions Chest X-Ray 02/02/19 16:59 IMPRESSION: Cardiomegaly with mild vascular congestion. Atelectasis or infiltrates in the lung bases with bilateral pleural effusions, left worse than right. Follow up to resolution is suggested. Pacemaker. D/ / 02/02/2019 22:15:52 Shannan Emery MD / [email or web address] Interpreting Provider: Shannan Emery MD Consult Discharge Plan - Plan Referrals: Wade Waters MD [Primary Care Provider] -
--- NOTE | 2019-02-05 11:44 | Nephrology Progress Note ---
<Ayaan Howard R - Last Filed: 02/05/19 17:02> Date of Encounter: 02/05/19 Time of Encounter: 08:30 - Assessment and Plan (1) THAD (acute kidney injury) Current Visit: Yes Status: Acute THAD superimposed on CKD stage IIIb/IV Tolerated one treatment of [employer] two days ago but still with significant edema SCr 2.45 (increased from 2.28), GFR 19 (previous 21, 15,14) Continue renal protective strategy: daily weights, I/O's, and avoid nephrotoxic agents Will plan for UF to remove fluid today (2) CKD (chronic kidney disease) stage 4, GFR 15-29 ml/min Current Visit: Yes Status: Chronic Baseline GFR 20-30's (3) Pleural effusion Current Visit: Yes Status: Acute Bilateral L>R, UF to remove fluid (4) Edema of both lower extremities Current Visit: Yes Status: Acute (5) Anemia Current Visit: No Status: Chronic Qualifiers: Anemia type: unspecified type Qualified Code(s): D64.9 - Anemia, unspecified (6) Metastatic renal cell carcinoma Current Visit: No Status: Chronic Qualifiers: Laterality: left Qualified Code(s): C64.2 - Malignant neoplasm of left kidney, except renal pelvis Subjective Principal diagnosis: THAD on CKD Interval history: Patient seen and examined. Reports she feels tired, but otherwise is doing okay. States her lower extremity edema remains the same. Denies worsening dyspnea. Reports her appetite is good. Denies confusion, N/V, or dysuria. Objective - Vital Signs Vital signs: Vital Signs Temp Pulse Resp BP Pulse Ox 02/05/19 07:38 98 02/05/19 07:06 97.5 F L 95 20 112/75 98 02/05/19 04:50 97.6 F 91 17 104/63 99 02/05/19 00:54 97.7 F 87 16 98/50 98 02/04/19 20:18 97.9 F 108 16 118/62 91 02/04/19 15:53 98.5 F 99 14 111/64 99 Intake and Output 02/04/19 02/05/19 02/05/19 23:59 07:59 15:59 Intake Total 120 / 120 Output Total 0 / 0 Balance 120 / 120 0 / 0 Intake: Oral 120 / 120 Output: Urine 0 / 0 Other: Meal Dinner Percent of Meal Consumed 100% # Voids 1 Blood Glucose* 176 108 - General Appearance General appearance: Present: well-developed, well-nourished EENT: Present: ATNC, mucous membranes moist Neck: Present: supple Respiratory: Present: rales (dimnished in bilateral bases) Cardiology: Present: edema (bilateral LE edema), irregular rhythm Dialysis Vascular Access: Venous Catheter (right IJ) Gastrointestinal: Present: normoactive bowel sounds, no tenderness Integumentary: Present: warm and dry Neurologic: Present: no focal deficit, alert and oriented x3 Musculoskeletal: Present: no cyanosis, no clubbing Psychiatric: Present: mood/affect appropriate, cooperative - Lab 02/05/19 03:03 02/05/19 03:03 Most recent lab results Calcium 8.6 mg/dL (8.6-10.3) 02/05/19 03:03 Phosphorus 4.5 mg/dL (2.7-4.5) 02/02/19 18:04 Magnesium 2.6 mg/dL (1.6-2.6) 02/02/19 18:04 Consult Discharge Plan - Plan Referrals: Wade Waters MD [Primary Care Provider] - (patient will is going to rehab) <Juan Manuel Price - Last Filed: 02/08/19 01:14> Date of Encounter: 02/05/19 - Assessment and Plan (1) THAD (acute kidney injury) Current Visit: Yes Status: Acute (2) CKD (chronic kidney disease) stage 4, GFR 15-29 ml/min Current Visit: Yes Status: Chronic (3) CHF (congestive heart failure) Current Visit: Yes Status: Acute Qualifiers: Heart failure type: systolic Qualified Code(s): I50.20 - Unspecified systolic (congestive) heart failure (4) Anemia Current Visit: No Status: Chronic Qualifiers: Anemia type: unspecified type Qualified Code(s): D64.9 - Anemia, unspecified (5) Pleural effusion Current Visit: Yes Status: Acute (6) Edema of both lower extremities Current Visit: Yes Status: Acute Objective - Vital Signs Vital signs: Vital Signs Temp Pulse Resp BP Pulse Ox 02/08/19 00:06 98.6 F 109 16 110/68 97 02/07/19 20:15 98.9 F 99 16 107/76 98 02/07/19 15:50 98.2 F 87 20 96/66 96 02/07/19 12:23 99.9 F H 86 16 99/66 96 02/07/19 06:52 98 F 91 20 90/61 99 02/07/19 04:02 98.0 F 95 15 101/71 100 Intake and Output 02/07/19 02/07/19 02/08/19 15:59 23:59 07:59 Intake Total 480 / 480 Balance 480 / 480 Intake: Oral 480 / 480 Other: Meal Lunch Percent of Meal Consumed 100% Weight 97.9 kg Blood Glucose* 155 117 Patient Weight 02/08/19 23:59 Weight 97.9 kg - Lab 02/07/19 04:00 02/07/19 04:00 Most recent lab results Calcium 8.4 mg/dL (8.6-10.3) L 02/07/19 04:00 Phosphorus 4.5 mg/dL (2.7-4.5) 02/02/19 18:04 Magnesium 2.6 mg/dL (1.6-2.6) 02/02/19 18:04 - Attending Attestation I examined this patient and my medical decision-making was reviewed with the Resident Physician. I agree with the documented findings, disposition and treatment plan as described except to the extent set forth below. Pt ssen and examined with LE edema. s/p HD 2 days ago first and only session. SCr worsening at 2.45, GFR 19 on exam lungs with decreased bs bases bilat, heart S1S2 and ext with significant LE edema bilat. Will plan for UF today and possibly HD tomorrow as needed. Continue to avoid nephrotoxins if possible
[2019-02-05] MEDS ORDERED: 0.9 % Sodium Chloride 250 ML IVC PRN (13:12)
[2019-02-05] MEDS ORDERED: *HR* Heparin 10,000 UNIT/10 ML VIAL IV PRN (13:12)
[2019-02-05] MEDS ORDERED: 0.9 % Sodium Chloride 1,000 ML PRIME SCH (13:15)
[2019-02-05] MEDS ORDERED: 0.9 % Sodium Chloride 2,000 ML ONE (14:21)
[2019-02-05] MEDS ORDERED: *HR* Warfarin 3 MG TABLET PO ONE (18:00)
[2019-02-05] MEDS: traMADol 50 MG TABLET PO PRN (22:20)
[2019-02-06 03:52] LABS: Hematocrit 24.4 % (35.3-44.9); Hemoglobin 7.4 g/dL (11.5-15.4); Mean Corpuscular HGB Conc 30.3 g/dL (31.6-35.5); Mean Corpuscular Hemoglobin 26.3 pg (28.0-33.3); Mean Corpuscular Volume 86.8 fL (83.0-100.0); Platelet Count 253 K/mcL (140-400); Red Blood Count 2.81 M/mcL (3.82-4.97); Red Cell Distribution Width 18.6 % (11.5-14.5)
[2019-02-06 04:00] LABS: Prothrombin Time 22.7 Seconds (9.4-12.1)
[2019-02-06 04:12] LABS: Calcium 8.5 mg/dL (8.6-10.3); Potassium 3.5 mEq/L (3.5-5.1)
[2019-02-06] MEDS ORDERED: 0.9 % Sodium Chloride 1,000 ML PRIME SCH (07:30)
[2019-02-06] MEDS ORDERED: 0.9 % Sodium Chloride 250 ML IVC PRN (07:30)
[2019-02-06] MEDS ORDERED: *HR* Heparin 10,000 UNIT/10 ML VIAL IV PRN ×2 (07:30)
[2019-02-06] MEDS: Insulin LISPRO 300 UNITS/3 ML VIAL SQ SCH ×3 (08:37→17:08)
[2019-02-06] MEDS ORDERED: *HR* Morphine Sulfate SR (12 HR) 15 MG TABLET.ER PO SCH (09:00)
[2019-02-06] MEDS ORDERED: Albumin 25% 25gram/100mL 25 GM/100 ML IV.SOLN IVPB ONE (10:33)
[2019-02-06] MEDS ORDERED: Albumin 25% 12.5gm/50mL 25.0 GM/100 ML IV.SOLN ONE (10:34)
--- NOTE | 2019-02-06 11:05 | Nephrology Progress Note ---
Date of Encounter: 02/06/19 Time of Encounter: 12:00 - Assessment and Plan (1) THAD (acute kidney injury) Current Visit: Yes Status: Acute SCr slightly worse today at 2.7, GFR 17, continue another HD session today for both clearance and UF Will reassess if HD still needed by friday Continue to avoid nephrotoxins if possible (2) CKD (chronic kidney disease) stage 4, GFR 15-29 ml/min Current Visit: Yes Status: Chronic Baseline GFR at least 29 as of november but has fluctuated greatly in the past (3) CHF (congestive heart failure) Current Visit: Yes Status: Acute Should improve with UF Continue fluid restriction Continue diuretics Continue strict I/Os Qualifiers: Heart failure type: systolic Qualified Code(s): I50.20 - Unspecified systolic (congestive) heart failure (4) Anemia Current Visit: No Status: Chronic Hgb noted at 7.4, GI on board for workup Transfusion parameters per primary team Qualifiers: Anemia type: unspecified type Qualified Code(s): D64.9 - Anemia, unspecified (5) Pleural effusion Current Visit: Yes Status: Acute (6) Edema of both lower extremities Current Visit: Yes Status: Acute Subjective Principal diagnosis: THAD on CKD Interval history: Pt seen and examined on HD today, s/p UF yesterday with 4kg removed. Doing well. Objective - Vital Signs Vital signs: Vital Signs Temp Pulse Resp BP Pulse Ox 02/06/19 10:30 85/53 02/06/19 10:15 116/63 02/06/19 10:00 96/68 02/06/19 09:45 92/63 02/06/19 09:30 93/66 02/06/19 09:15 100/68 02/06/19 09:00 97/67 02/06/19 08:45 97.4 F L 16 96/68 02/06/19 07:55 97.8 F 100 16 95/67 100 02/06/19 03:20 97.6 F 90 18 93/61 100 02/06/19 01:08 98.5 F 99 18 92/57 98 02/05/19 21:21 99.3 F 102 18 106/69 97 02/05/19 17:16 97.6 F 90 17 123/77 97 02/05/19 17:03 97.5 F L 18 110/83 02/05/19 16:45 101/62 02/05/19 16:30 106/77 02/05/19 16:15 117/62 02/05/19 16:00 107/67 02/05/19 15:45 110/83 02/05/19 15:30 99/74 02/05/19 15:15 108/81 02/05/19 15:00 120/80 02/05/19 14:45 97.8 F 20 118/74 02/05/19 12:04 97.8 F 96 20 105/73 94 Intake and Output 02/05/19 02/06/19 02/06/19 23:59 07:59 15:59 Intake Total 100 / 100 100 / 100 720 / 720 Output Total 4600 / 4600 Balance -4500 / -4500 100 / 100 720 / 720 Intake: Oral 100 / 100 100 / 100 120 / 120 Intake, Rinseback and Flushes 600 / 600 Output: Urine 0 / 0 Total Dialysis (HD) Output 4600 / 4600 Other: Meal Breakfast Percent of Meal Consumed 50% # Voids 1 Weight 98.4 kg Blood Glucose* 142 91 Hemodialysis Net Fluid Removed 4000 2100 (mL) Patient Weight 02/06/19 23:59 Weight 98.4 kg - General Appearance General appearance: Present: chronically ill (NAD) EENT: Present: ATNC, mucous membranes moist Neck: Present: no JVD, supple Additional Comments: decreased bs bases bilat Cardiology: Present: edema, normal S1, normal S2 Dialysis Vascular Access: Venous Catheter (temp line) Gastrointestinal: Present: no tenderness, no guarding Neurologic: Present: no focal deficit Musculoskeletal: Present: no deformities Psychiatric: Present: mood/affect appropriate, cooperative - Lab 02/07/19 04:00 02/07/19 04:00 Most recent lab results Calcium 8.5 mg/dL (8.6-10.3) L 02/06/19 03:15 Phosphorus 4.5 mg/dL (2.7-4.5) 02/02/19 18:04 Magnesium 2.6 mg/dL (1.6-2.6) 02/02/19 18:04 Consult Discharge Plan - Plan Referrals: Wade Waters MD [Primary Care Provider] - (patient will is going to rehab)
--- NOTE | 2019-02-06 11:44 | Internal Med Progress Note ---
Hospitalist Progress Note - Encounter Date of Encounter: 02/06/19 Time of Encounter: 11:00 - Subjective Interval History: Patient is a 78-year-old female with past medical history significant for renal cell CA s/p nephrectomy, with recurrence of the tumor at the nephrectomy site, liver metastasis, CKD and A.fib s/p pacemaker placement who presented due to worsening renal function. Renal function has improved with hemodialysis 1 Patient also for acute on chronic anemia; GI consulted with plans for EGD/colonoscopy once INR less than 1.5 - Exam Vitals: Temp Pulse Resp BP Pulse Ox 97.4 F L 100 16 93/58 100 02/06/19 08:45 02/06/19 07:55 02/06/19 08:45 02/06/19 11:00 02/06/19 07:55 Exam: Gen.: Nonacute distress, alert and oriented 3 ENT: Mucosal membranes moist Respiratory: Lungs are clear to auscultation bilaterally without any wheezing rhonchi or rales Cardiovascular: Normal S1 and S2 regular rate rhythm no murmurs rubs or gallops Abdomen: Soft, nontender and nondistended with positive bowel sounds Extremities: No lower extremity edema Skin: Normal color - Assessment and Plan (1) Acute kidney injury superimposed on chronic kidney disease Current Visit: No Status: Acute Assessment and Plan: Renal function has improved with hemodialysis 1 SCr: 3.19->3.02->-2.28->2.45->2.70 Nephrology following and appreciate recommendations. (2) Anemia Current Visit: No Status: Chronic Assessment and Plan: Patient with positive FOBT on Coumadin Will continue ferrous sulfate 325mg/PO daily Monitor H&H and transfuse per protocol GI consulted for recommendations for EGD/colonoscopy once INR less than 1.5 (3) Afib Current Visit: No Status: Chronic Assessment and Plan: Rate controlled on metoprolol and cardizem. Will hold Coumadin to achieve an INR less than 1.5 due to needed GI procedure for workup of anemia above (4) HTN (hypertension) Current Visit: No Status: Chronic Assessment and Plan: Will continue home dose of metoprolol and cardizem. (5) Acquired hypothyroidism Current Visit: No Status: Chronic Assessment and Plan: will continue levothyroxine 112 mcg/po daily. home dose. (6) S/p nephrectomy Current Visit: No Status: Chronic Assessment and Plan: as per patient there is recurrence of the cancer at the nephrectomy site. (7) Metastatic renal cell carcinoma Current Visit: No Status: Chronic Assessment and Plan: as per patient she on oral morphine extended release for pain control. pharmacy to verify medication. (8) Edema of both lower extremities Current Visit: Yes Status: Acute Assessment and Plan: keep compression stocking furosemide held due to worsening kidney function DVT Prophylaxis: Heparin subcutaneous - Time Spent with Patient Total time spent is greater than 50% in coordination of care (as documented) at patient's floor/unit and/or counseling patient: Internal Medicine: Result - Labs CBC & Chem 7: 02/07/19 04:00 02/07/19 04:00 Labs: Short CBC 02/06/19 Range/Units 03:15 WBC 7.7 (4.3-11.1) K/mcL Hgb 7.4 L (11.5-15.4) g/dL Hct 24.4 L (35.3-44.9) % Plt Count 253 (140-400) K/mcL BMP 02/06/19 03:15 Sodium 138 Potassium 3.5 Chloride 104 Carbon Dioxide 26 BUN 31 H Creatinine 2.70 H Glucose 103 Calcium 8.5 L - ABG Interpretation ABG results: PT/INR, D-dimer PT 22.7 Seconds (9.4-12.1) H 02/06/19 03:15 Consult Discharge Plan - Plan Referrals: Wade Waters MD [Primary Care Provider] - (patient will is going to rehab) (2) Anemia Qualifiers: Anemia type: unspecified type Qualified Code(s): D64.9 - Anemia, unspecified (3) Afib Qualifiers: Atrial fibrillation type: chronic Qualified Code(s): I48.2 - Chronic atrial fibrillation (4) HTN (hypertension) Qualifiers: Hypertension type: essential hypertension Qualified Code(s): I10 - Essential (primary) hypertension (7) Metastatic renal cell carcinoma Qualifiers: Laterality: left Qualified Code(s): C64.2 - Malignant neoplasm of left kidney, except renal pelvis
[2019-02-06] MEDS: Diltiazem CD (24hr) 120 MG CAPSULE PO SCH (13:22)
[2019-02-06] MEDS: Furosemide 40 MG TABLET PO SCH (13:22)
[2019-02-06] MEDS: *HR* Morphine Sulfate SR (12 HR) 15 MG TABLET.ER PO SCH (21:54)
[2019-02-07 04:09] LABS: Hematocrit 25.3 % (35.3-44.9); Hemoglobin 7.8 g/dL (11.5-15.4); Mean Corpuscular HGB Conc 30.8 g/dL (31.6-35.5); Mean Corpuscular Hemoglobin 26.3 pg (28.0-33.3); Mean Corpuscular Volume 85.2 fL (83.0-100.0); Mean Platelet Volume 7.9 fL (9.4-12.4); Platelet Count 249 K/mcL (140-400); Red Blood Count 2.97 M/mcL (3.82-4.97); Red Cell Distribution Width 18.6 % (11.5-14.5)
[2019-02-07 04:17] LABS: INR 1.7; Prothrombin Time 19.1 Seconds (9.4-12.1)
[2019-02-07 04:29] LABS: Calcium 8.4 mg/dL (8.6-10.3); Potassium 3.3 mEq/L (3.5-5.1)
[2019-02-07] MEDS: Insulin LISPRO 300 UNITS/3 ML VIAL SQ SCH ×3 (07:47→16:54)
[2019-02-07] MEDS: Diltiazem CD (24hr) 120 MG CAPSULE PO SCH (07:54)
[2019-02-07] MEDS: Furosemide 40 MG TABLET PO SCH (07:54)
[2019-02-07] MEDS: *HR* Morphine Sulfate SR (12 HR) 15 MG TABLET.ER PO SCH ×2 (07:54→21:17)
--- NOTE | 2019-02-07 09:14 | Internal Med Progress Note ---
Hospitalist Progress Note - Encounter Date of Encounter: 02/07/19 Time of Encounter: 11:00 - Subjective Interval History: Patient with past medical history significant for renal cell CA s/p nephrectomy, with recurrence of the tumor at the nephrectomy site, liver metastasis, CKD and A.fib s/p pacemaker placement who presented due to worsening renal function. Renal function continues to improve with hemodialysis; nephrology following GI consulted with plans for EGD/colonoscopy for evaluation of acute on chronic anemia once INR less than 1.5; INR 1.7 this morning - Exam Vitals: Temp Pulse Resp BP Pulse Ox 98 F 91 20 90/61 99 02/07/19 06:52 02/07/19 06:52 02/07/19 06:52 02/07/19 06:52 02/07/19 06:52 Exam: Gen.: Nonacute distress, alert and oriented 3 ENT: Mucosal membranes moist Respiratory: Lungs are clear to auscultation bilaterally without any wheezing rhonchi or rales Cardiovascular: Normal S1 and S2 regular rate rhythm no murmurs rubs or gallops Abdomen: Soft, nontender and nondistended with positive bowel sounds Extremities: No lower extremity edema Skin: Normal color - Assessment and Plan (1) Acute kidney injury superimposed on chronic kidney disease Current Visit: No Status: Acute Assessment and Plan: Renal function continues to improve with hemodialysis SCr: 3.19->3.02->-2.28->2.45->2.70->1.97 Nephrology following and appreciate recommendations. (2) Anemia Current Visit: No Status: Chronic Assessment and Plan: Patient with positive FOBT on Coumadin which is now being held Will continue ferrous sulfate 325mg/PO daily Monitor H&H and transfuse per protocol GI consulted for recommendations for EGD/colonoscopy once INR less than 1.5; INR 1.7 this morning (3) Afib Current Visit: No Status: Chronic Assessment and Plan: Rate controlled on metoprolol and cardizem. Holding Coumadin to achieve an INR less than 1.5 due to needed GI procedure for workup of anemia above (4) HTN (hypertension) Current Visit: No Status: Chronic Assessment and Plan: Will continue home dose of metoprolol and cardizem. (5) Acquired hypothyroidism Current Visit: No Status: Chronic Assessment and Plan: will continue levothyroxine 112 mcg/po daily. home dose. (6) S/p nephrectomy Current Visit: No Status: Chronic Assessment and Plan: as per patient there is recurrence of the cancer at the nephrectomy site. (7) Metastatic renal cell carcinoma Current Visit: No Status: Chronic Assessment and Plan: as per patient she on oral morphine extended release for pain control. pharmacy to verify medication. (8) Edema of both lower extremities Current Visit: Yes Status: Acute Assessment and Plan: keep compression stocking furosemide held due to worsening kidney function DVT Prophylaxis: Anticoagulation held due to scheduled GI procedure as above - Time Spent with Patient Total time spent is greater than 50% in coordination of care (as documented) at patient's floor/unit and/or counseling patient: Internal Medicine: Result - Labs CBC & Chem 7: 02/07/19 04:00 02/07/19 04:00 Labs: Short CBC 02/07/19 Range/Units 04:00 WBC 7.4 (4.3-11.1) K/mcL Hgb 7.8 L (11.5-15.4) g/dL Hct 25.3 L (35.3-44.9) % Plt Count 249 (140-400) K/mcL BMP 02/07/19 04:00 Sodium 138 Potassium 3.3 L Chloride 99 Carbon Dioxide 31 H BUN 21 Creatinine 1.97 H Glucose 96 Calcium 8.4 L - ABG Interpretation ABG results: PT/INR, D-dimer PT 19.1 Seconds (9.4-12.1) H 02/07/19 04:00 Consult Discharge Plan - Plan Referrals: Wade Waters MD [Primary Care Provider] - (patient will is going to rehab) ____ (2) Anemia Qualifiers: Anemia type: unspecified type Qualified Code(s): D64.9 - Anemia, unspecified (3) Afib Qualifiers: Atrial fibrillation type: chronic Qualified Code(s): I48.2 - Chronic atrial fibrillation (4) HTN (hypertension) Qualifiers: Hypertension type: essential hypertension Qualified Code(s): I10 - Essential (primary) hypertension (7) Metastatic renal cell carcinoma Qualifiers: Laterality: left Qualified Code(s): C64.2 - Malignant neoplasm of left kidney, except renal pelvis
[2019-02-07] MEDS ORDERED: *HR* Heparin 5,000 UNIT/ML VIAL SQ ONE (12:13)
--- NOTE | 2019-02-07 23:26 | Nephrology Progress Note ---
Date of Encounter: 02/08/19 Time of Encounter: 12:00 - Assessment and Plan (1) THAD (acute kidney injury) Current Visit: Yes Status: Acute SCr improved today at SCr 1.9,GFR 30, after HD session yesterday Will reassess if HD still needed by friday Continue to avoid nephrotoxins if possible (2) CKD (chronic kidney disease) stage 4, GFR 15-29 ml/min Current Visit: Yes Status: Chronic Baseline GFR at least 29 as of november but has fluctuated greatly in the past (3) CHF (congestive heart failure) Current Visit: Yes Status: Acute improved with UF Continue fluid restriction Continue diuretics Continue strict I/Os Qualifiers: Heart failure type: systolic Qualified Code(s): I50.20 - Unspecified systolic (congestive) heart failure (4) Anemia Current Visit: No Status: Chronic Hgb noted at 7.8, GI on board for workup Transfusion parameters per primary team Qualifiers: Anemia type: unspecified type Qualified Code(s): D64.9 - Anemia, unspecified (5) Pleural effusion Current Visit: Yes Status: Acute (6) Edema of both lower extremities Current Visit: Yes Status: Acute Subjective Principal diagnosis: THAD on CKD Interval history: Pt seen and examined sitting up in chair, s/p HD yesterday with over 2kg UF Objective - Vital Signs Vital signs: Vital Signs Temp Pulse Resp BP Pulse Ox 02/07/19 20:15 98.9 F 99 16 107/76 98 02/07/19 15:50 98.2 F 87 20 96/66 96 02/07/19 12:23 99.9 F H 86 16 99/66 96 02/07/19 06:52 98 F 91 20 90/61 99 02/07/19 04:02 98.0 F 95 15 101/71 100 02/07/19 00:51 98.6 F 98 18 103/74 97 Intake and Output 02/07/19 02/07/19 02/07/19 07:59 15:59 23:59 Intake Total 140 / 140 480 / 480 Output Total 1030 / 1030 Balance -890 / -890 480 / 480 Intake: Oral 140 / 140 480 / 480 Output: Urine 1030 / 1030 Other: Meal Lunch Percent of Meal Consumed 100% Blood Glucose* 86 155 117 - General Appearance General appearance: Present: frail (NAD) EENT: Present: ATNC, mucous membranes moist Neck: Present: no JVD, supple Additional Comments: good areation ant bilat Cardiology: Present: edema, normal S1, normal S2 Dialysis Vascular Access: Venous Catheter (temp line) Gastrointestinal: Present: no tenderness, no guarding Integumentary: Present: warm and dry Neurologic: Present: no focal deficit Musculoskeletal: Present: no deformities Psychiatric: Present: mood/affect appropriate, cooperative - Lab 02/07/19 04:00 02/07/19 04:00 Most recent lab results Calcium 8.4 mg/dL (8.6-10.3) L 02/07/19 04:00 Phosphorus 4.5 mg/dL (2.7-4.5) 02/02/19 18:04 Magnesium 2.6 mg/dL (1.6-2.6) 02/02/19 18:04 Consult Discharge Plan - Plan Referrals: Wade Waters MD [Primary Care Provider] - (patient will is going to rehab)
[2019-02-08 04:35] LABS: Hematocrit 24.7 % (35.3-44.9); Hemoglobin 7.5 g/dL (11.5-15.4); Mean Corpuscular HGB Conc 30.4 g/dL (31.6-35.5); Mean Corpuscular Volume 85.8 fL (83.0-100.0); Mean Platelet Volume 7.9 fL (9.4-12.4); Platelet Count 252 K/mcL (140-400); Red Blood Count 2.88 M/mcL (3.82-4.97); Red Cell Distribution Width 18.5 % (11.5-14.5)
[2019-02-08 04:43] LABS: INR 1.7; Prothrombin Time 18.9 Seconds (9.4-12.1)
[2019-02-08 04:54] LABS: Calcium 8.5 mg/dL (8.6-10.3); Potassium 3.2 mEq/L (3.5-5.1)
[2019-02-08] MEDS: Insulin LISPRO 300 UNITS/3 ML VIAL SQ SCH ×3 (07:09→15:58)
[2019-02-08] MEDS: Furosemide 40 MG TABLET PO SCH (07:48)
[2019-02-08] MEDS: *HR* Morphine Sulfate SR (12 HR) 15 MG TABLET.ER PO SCH ×2 (07:48→20:13)
[2019-02-08] MEDS: Diltiazem CD (24hr) 120 MG CAPSULE PO SCH (07:48)
[2019-02-08] MEDS ORDERED: 0.9 % Sodium Chloride 250 ML IVC PRN (08:23)
[2019-02-08] MEDS ORDERED: *HR* Heparin 10,000 UNIT/10 ML VIAL IV PRN ×2 (08:23)
[2019-02-08] MEDS ORDERED: 0.9 % Sodium Chloride 2,000 ML ONE (08:28)
[2019-02-08] MEDS ORDERED: 0.9 % Sodium Chloride 1,000 ML PRIME SCH (08:30)
[2019-02-08] MEDS ORDERED: *HR* Phytonadione 5 MG TABLET PO ONE (11:36)
--- NOTE | 2019-02-08 13:58 | Nephrology Progress Note ---
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 Will continue diuresis Follow renal protective strategy: daily weights, I/O's, and avoid other nephrotoxic agents if possible (2) CKD (chronic kidney disease) stage 4, GFR 15-29 ml/min Current Visit: Yes Status: Chronic Baseline GFR appears 20-30's with wide fluctuations (3) CHF (congestive heart failure) Current Visit: Yes Status: Acute Symptoms are improving with UF and HD Continue diuresis, daily weights, and I/O's Qualifiers: Heart failure type: systolic Qualified Code(s): I50.20 - Unspecified systo lic (congestive) heart failure (4) Hypokalemia Current Visit: Yes Status: Acute K down to 3.2 today - replace with PO potassium and monitor (5) Anemia Current Visit: Yes Status: Chronic Hgb 7.5, GI following for further work-up Qualifiers: Anemia type: unspecified type Qualified Code(s): D64.9 - Anemia, unspecified (6) Metastatic renal cell carcinoma Current Visit: No Status: Chronic Qualifiers: Laterality: left Qualified Code(s): C64.2 - Malignant neoplasm of left kidn ey, except renal pelvis Subjective Principal diagnosis: THAD on CKD Interval history: Patient seen and examined. Reports she feels tired, but otherwise is doing okay. Think her lower extremity edema is improving some. Denies worsening dyspnea. Reports her appetite is good. Denies confusion, N/V, or dysuria. Objective - Vital Signs Vital signs: Vital Signs Temp Pulse Resp BP Pulse Ox 02/08/19 13:17 97.8 F 20 105/61 02/08/19 13:15 99/53 02/08/19 13:00 101/55 02/08/19 12:45 99/67 02/08/19 12:30 103/65 02/08/19 12:15 90/66 02/08/19 12:00 99/62 02/08/19 11:45 106/54 02/08/19 11:30 99/57 02/08/19 11:15 110/63 02/08/19 11:00 105/66 02/08/19 10:45 95/68 02/08/19 10:30 114/82 02/08/19 07:06 98.1 F 97 17 93/65 99 02/08/19 03:15 97.6 F 98 15 99/65 99 02/08/19 00:06 98.6 F 109 16 110/68 97 02/07/19 20:15 98.9 F 99 16 107/76 98 02/07/19 15:50 98.2 F 87 20 96/66 96 Intake and Output 02/07/19 02/08/19 02/08/19 23:59 07:59 15:59 Intake Total 480 / 480 Output Total 3600 / 3600 Balance -3120 / -3120 Intake: Oral 480 / 480 Output: Urine 0 / 0 Total Dialysis (HD) Output 3600 / 3600 Other: Meal Breakfast Percent of Meal Consumed 85% Weight 97.9 kg Blood Glucose* 117 100 133 Hemodialysis Net Fluid Removed 3000 (mL) Patient Weight 02/08/19 23:59 Weight 97.9 kg - General Appearance General appearance: Present: well-developed, well-nourished EENT: Present: ATNC, mucous membranes moist Neck: Present: supple Respiratory: Present: clear (diminished in bases) Cardiology: Present: edema (bilateral LE edema), irregular rhythm Dialysis Vascular Access: Venous Catheter (temp HD cath) Gastrointestinal: Present: normoactive bowel sounds, no tenderness Integumentary: Present: warm and dry Neurologic: Present: no focal deficit Musculoskeletal: Present: no cyanosis, no clubbing Psychiatric: Present: mood/affect appropriate, cooperative - Lab 02/08/19 04:20 02/08/19 04:20 Most recent lab results Calcium 8.5 mg/dL (8.6-10.3) L 02/08/19 04:20 Phosphorus 4.5 mg/dL (2.7-4.5) 02/02/19 18:04 Magnesium 2.6 mg/dL (1.6-2.6) 02/02/19 18:04 Consult Discharge Plan - Plan Referrals: Wade Waters MD [Primary Care Provider] - (patient will is going to rehab)
[2019-02-08 15:10] LABS: INR 1.7; Prothrombin Time 18.8 Seconds (9.4-12.1)
[2019-02-08] MEDS ORDERED: SODIUM CHLORIDE/NAHCO3/KCL/PEG 4,000 ML SOLN.RECON PO ONE (17:00)
--- NOTE | 2019-02-08 18:59 | Internal Med Progress Note ---
Hospitalist Progress Note - Encounter Date of Encounter: 02/08/19 Time of Encounter: 11:00 - Subjective Interval History: Patient to continue hemodialysis per nephrology recommendations. Patient will also undergo colonoscopy/EGD once INR below 1.5. - Exam Vitals: Temp Pulse Resp BP Pulse Ox 99.3 F 101 16 131/81 97 02/08/19 18:26 18 18:26 02/08/19 18:26 02/08/19 18:26 02/08/19 18:26 Exam: Gen.: Nonacute distress, alert and oriented 3 ENT: Mucosal membranes moist Respiratory: Lungs are clear to auscultation bilaterally without any wheezing rhonchi or rales Cardiovascular: Normal S1 and S2 regular rate rhythm no murmurs rubs or gallops Abdomen: Soft, nontender and nondistended with positive bowel sounds Extremities: No lower extremity edema Skin: Normal color - Assessment and Plan (1) Acute kidney injury superimposed on chronic kidney disease Current Visit: No Status: Acute Assessment and Plan: Renal function continues to improve with hemodialysis SCr: 3.19->3.02->-2.28->2.45->2.70->1.97->2.25 Nephrology following and appreciate recommendations. (2) Anemia Current Visit: Yes Status: Chronic Assessment and Plan: Patient with positive FOBT on Coumadin which is now being held Will continue ferrous sulfate 325mg/PO daily Monitor H&H and transfuse per protocol GI consulted for recommendations for EGD/colonoscopy once INR less than 1.5; INR 1.7 this morning (3) Afib Current Visit: No Status: Chronic Assessment and Plan: Rate controlled on metoprolol and cardizem. Holding Coumadin to achieve an INR less than 1.5 due to needed GI procedure for workup of anemia above (4) HTN (hypertension) Current Visit: No Status: Chronic Assessment and Plan: Will continue home dose of metoprolol and cardizem. (5) Acquired hypothyroidism Current Visit: No Status: Chronic Assessment and Plan: will continue levothyroxine 112 mcg/po daily. home dose. (6) S/p nephrectomy Current Visit: No Status: Chronic Assessment and Plan: as per patient there is recurrence of the cancer at the nephrectomy site. (7) Metastatic renal cell carcinoma Current Visit: No Status: Chronic Assessment and Plan: as per patient she on oral morphine extended release for pain control. pharmacy to verify medication. (8) Edema of both lower extremities Current Visit: Yes Status: Acute Assessment and Plan: keep compression stocking furosemide held due to worsening kidney function DVT Prophylaxis: Anticoagulation held due to scheduled GI procedure as above - Time Spent with Patient Total time spent is greater than 50% in coordination of care (as documented) at patient's floor/unit and/or counseling patient: Internal Medicine: Result - Labs CBC & Chem 7: 02/08/19 04:20 02/08/19 04:20 Labs: Short CBC 02/08/19 Range/Units 04:20 WBC 7.1 (4.3-11.1) K/mcL Hgb 7.5 L (11.5-15.4) g/dL Hct 24.7 L (35.3-44.9) % Plt Count 252 (140-400) K/mcL BMP 02/08/19 04:20 Sodium 137 Potassium 3.2 L Chloride 99 Carbon Dioxide 30 H BUN 31 H Creatinine 2.25 H Glucose 98 Calcium 8.5 L - ABG Interpretation ABG results: PT/INR, D-dimer PT 18.8 Seconds (9.4-12.1) H 02/08/19 14:50 Consult Discharge Plan - Plan Referrals: Wade Waters MD [Primary Care Provider] - (patient will is going to rehab) (2) Anemia Qualifiers: Anemia type: unspecified type Qualified Code(s): D64.9 - Anemia, unspecified (3) Afib Qualifiers: Atrial fibrillation type: chronic Qualified Code(s): I48.2 - Chronic atrial fibrillation (4) HTN (hypertension) Qualifiers: Hypertension type: essential hypertension Qualified Code(s): I10 - Essential (primary) hypertension (7) Metastatic renal cell carcinoma Qualifiers: Laterality: left Qualified Code(s): C64.2 - Malignant neoplasm of left kidney, except renal pelvis
--- NOTE | 2019-02-08 19:38 | Anesthesia Evaluation PreOp ---
Date of Encounter: 02/08/19 Time of Encounter: 19:36 - Past History Planned Operation: EGD/colonoscopy Cardiac History: HTN, Arrhythmia (afib s/p ablation in 2003), Pacemaker/ICD (pacer) Pulmonary History: Denies Any Significant HX EDGE STRIPPER History: Other (renae LE neuropathy) Other Medical History: Renal (s/p L nephrectomy for renal cell ca, metastatic renal cell carcimoma, THAD on CKD now on dialysis), Diabetes Type II, Thyroid (hypo), Other (supratherapeutic INR, hx of breast ca, hard of hearing with hearing aids) Anesthesia History: No Prior Anesthetic Complications, Past Anesthesia (L nephrectomy, RCR, CTR, Tubal, mastectomy, trigger finger, nasal sx, skin, bx, heart ablation, D7C, Left THR, renal Bx)) Alcohol Use: none Drug use: none Medications and Allergies Atorvastatin [Lipitor] 40 mg PO HS tablet 07/03/15 [Rx] Aspirin Enteric Coated [Aspirin EC] 81 mg PO DAILY 08/08/15 [History] Furosemide [Lasix] 40 mg PO DAILY 09/26/15 [History] Potassium Chloride [Klor-Con Sprinkle] 40 meq PO BIDWM 09/26/15 [History] Calcium Citrate/Vitamin D3 [Calcium Citrate-Vit D3 Tablet] 1 each PO DAILY 03/31/16 [History] Cholecalciferol (Vitamin D3) [Vitamin D3] 2,000 unit PO BID 03/31/16 [History] Glucosamine Sulfate Dipot Chlr [Glucosamine] 1,000 mg PO BID 03/31/16 [History] Vit C/Vit E/Lutein/Min/Coolidge-3 [Ocuvite Softgel] 1 each PO DAILY 03/21/17 [History] Oxybutynin Chloride [Ditropan Xl] 10 mg PO DAILY 05/12/17 [History] Mv W-Ca/Iron/FA/Lutein/Hrb#179 [Nik Multivit For Women Caplet] 1 each PO DAILY 07/25/18 [History] Pazopanib HCl [Votrient] 600 mg PO DAILY 09/30/18 [History] OxyCODONE Immed Rel [Roxicodone 5 MG] 5 mg PO Q6H PRN 01/19/19 [History] Docusate [Colace] 100 mg PO DAILY 01/26/19 [History] Omeprazole [PriLOSEC] 20 mg PO DAILY 01/26/19 [History] Ondansetron ODT [Zofran ODT] 4 mg SL Q8HR PRN 01/26/19 [History] Polyethylene Glycol 3350 [MiraLAX] 17 gm PO DAILY 01/26/19 [History] Vitamin A 10,000 unit PO DAILY 01/26/19 [History] Diltiazem CD (24hr) [Cardizem CD] 120 mg PO DAILY cap.er.24h 02/02/19 [Rx] Warfarin [Coumadin] 4 mg PO DAILY@1800 tablet 02/02/19 [Rx] Levothyroxine [Synthroid] 112 mcg PO 0630 02/03/19 [History] Metoprolol [Lopressor] 12.5 mg PO BID 02/03/19 [History] Morphine Sulfate [Arymo ER] 15 mg PO BID 02/03/19 [History] Allergy/AdvReac Type Severity Reaction Status Date / Time No Known Allergies Allergy Verified 09/30/18 17:52 - Meds/Allergy Pre-op Review Medications Reviewed: Yes Allergies Reviewed: Yes Beta Blockers on Current Med List: No Anesthesia Results - Labs 02/08/19 04:20 02/08/19 04:20 Laboratory Tests 02/02/19 02/08/19 18:04 14:50 PT 18.8 H INR 1.7 APTT 32.4 - Imaging EKG: report reviewed ( Interpretive Statements Atrial fibrillation with demand ventricular pacing Electronically Signed On 01-22-2019 16:40:51 EST by Cher Ferguson) Additional studies: ECHO 2017 Impressions: Technically sub-optimal due to poor echocardiographic windows. LVEF 60%. Normal LV chamber size, wall thickness and function. Indeterminate diastolic function. Mildly dilated right ventricle with normal appearing function. Moderate pulmonary hypertension. Estimated RVSP 48 mmHg. No significant valvular dysfunction. Anesthesia Exam Vital Signs/O2 Sat, Most Current Temp Pulse Resp BP Pulse Ox 99.3 F 101 16 131/81 97 02/08/19 18:26 02/08/19 18:26 02/08/19 18:26 02/08/19 18:26 02/08/19 18:26 NPO (# of Hours): MN - HEENT Pupil (Motor): Pupils equal, EOMI Mallampati: III Teeth: Edentulous Oral Opening: Greater than 3 - EDGE STRIPPER LOC: Oriented EDGE STRIPPER Motor: Normal RUE, Normal LUE, Normal RLE, Normal LLE, Normal Face EDGE STRIPPER Sensory: Normal: RUE, LUE, Deficit: RLE (neuropathy), LLE (neuropathy) - Cardiac Rhythm: Regular - Pulmonary Breath Sounds: bilateral Clear Respiratory Effort: Symmetrical Anesthesia Assess/Plan ASA Score: 4 Level of consciousness: Cooperative, Oriented Anesthetic Plan: MAC Monitoring Plan: Standard Monitors Recovery Plan: PACU
[2019-02-09 04:29] LABS: Hematocrit 25.6 % (35.3-44.9); Hemoglobin 7.8 g/dL (11.5-15.4); Mean Corpuscular HGB Conc 30.5 g/dL (31.6-35.5); Mean Corpuscular Hemoglobin 26.2 pg (28.0-33.3); Mean Corpuscular Volume 85.9 fL (83.0-100.0); Platelet Count 250 K/mcL (140-400); Red Blood Count 2.98 M/mcL (3.82-4.97); Red Cell Distribution Width 18.5 % (11.5-14.5)
[2019-02-09 04:36] LABS: INR 1.5; Prothrombin Time 17.4 Seconds (9.4-12.1)
[2019-02-09 05:15] LABS: Calcium 8.4 mg/dL (8.6-10.3); Potassium 4.4 mEq/L (3.5-5.1)
[2019-02-09] MEDS: Insulin LISPRO 300 UNITS/3 ML VIAL SQ SCH ×3 (07:37→16:09)
[2019-02-09] MEDS: *HR* Morphine Sulfate SR (12 HR) 15 MG TABLET.ER PO SCH ×2 (08:06→20:49)
[2019-02-09] MEDS: Furosemide 40 MG TABLET PO SCH (08:06)
[2019-02-09] MEDS: Diltiazem CD (24hr) 120 MG CAPSULE PO SCH (08:06)
--- NOTE | 2019-02-09 11:35 | Internal Med Progress Note ---
Hospitalist Progress Note - Encounter Date of Encounter: 02/09/19 Time of Encounter: 11:00 - Subjective Interval History: Patient's INR now 1.5 with plans for colonoscopy/EGD today by GI Patient will also continue hemodialysis per nephrology recommendations for acute renal failure - Exam Vitals: Temp Pulse Resp BP Pulse Ox 97.8 F 110 16 111/73 98 02/09/19 07:50 02/09/19 07:50 02/09/19 07:50 02/09/19 07:50 02/09/19 07:50 Exam: Gen.: Nonacute distress, alert and oriented 3 ENT: Mucosal membranes moist Respiratory: Lungs are clear to auscultation bilaterally without any wheezing rhonchi or rales Cardiovascular: Normal S1 and S2 regular rate rhythm no murmurs rubs or gallops Abdomen: Soft, nontender and nondistended with positive bowel sounds Extremities: No lower extremity edema Skin: Normal color - Assessment and Plan (1) Acute kidney injury superimposed on chronic kidney disease Current Visit: No Status: Acute Assessment and Plan: Renal function continues to improve with hemodialysis SCr: 3.19->3.02->-2.28->2.45->2.70->1.97->2.25->1.59 Nephrology following and appreciate recommendations. (2) Anemia Current Visit: Yes Status: Chronic Assessment and Plan: Hemoglobin remains stable at 7.8 this morning Patient with positive FOBT on Coumadin which is now being held Will continue ferrous sulfate 325mg/PO daily Monitor H&H and transfuse per protocol Patient's INR now 1.5 with plans for colonoscopy/EGD today by GI (3) Afib Current Visit: No Status: Chronic Assessment and Plan: Rate controlled on metoprolol and cardizem. Holding Coumadin to achieve an INR less than 1.5 due to needed GI procedure for workup of anemia above (4) HTN (hypertension) Current Visit: No Status: Chronic Assessment and Plan: Will continue home dose of metoprolol and cardizem. (5) Acquired hypothyroidism Current Visit: No Status: Chronic Assessment and Plan: will continue levothyroxine 112 mcg/po daily. home dose. (6) S/p nephrectomy Current Visit: No Status: Chronic Assessment and Plan: as per patient there is recurrence of the cancer at the nephrectomy site. (7) Metastatic renal cell carcinoma Current Visit: No Status: Chronic Assessment and Plan: as per patient she on oral morphine extended release for pain control. pharmacy to verify medication. (8) Edema of both lower extremities Current Visit: Yes Status: Acute Assessment and Plan: keep compression stocking furosemide held due to worsening kidney function DVT Prophylaxis: Anticoagulation held due to scheduled GI procedure as above - Time Spent with Patient Total time spent is greater than 50% in coordination of care (as documented) at patient's floor/unit and/or counseling patient: Internal Medicine: Result - Labs CBC & Chem 7: 02/09/19 04:00 02/09/19 04:00 Labs: Short CBC 02/09/19 Range/Units 04:00 WBC 7.4 (4.3-11.1) K/mcL Hgb 7.8 L (11.5-15.4) g/dL Hct 25.6 L (35.3-44.9) % Plt Count 250 (140-400) K/mcL BMP 02/09/19 04:00 Sodium 136 Potassium 4.4 D Chloride 101 Carbon Dioxide 29 BUN 18 Creatinine 1.59 H Glucose 103 Calcium 8.4 L - ABG Interpretation ABG results: PT/INR, D-dimer PT 17.4 Seconds (9.4-12.1) H 02/09/19 04:00 Consult Discharge Plan - Plan Referrals: Wade Waters MD [Primary Care Provider] - (patient will is going to rehab) (2) Anemia Qualifiers: Anemia type: unspecified type Qualified Code(s): D64.9 - Anemia, unspecified (3) Afib Qualifiers: Atrial fibrillation type: chronic Qualified Code(s): I48.2 - Chronic atrial fibrillation (4) HTN (hypertension) Qualifiers: Hypertension type: essential hypertension Qualified Code(s): I10 - Essential (primary) hypertension (7) Metastatic renal cell carcinoma Qualifiers: Laterality: left Qualified Code(s): C64.2 - Malignant neoplasm of left kidney, except renal pelvis
[2019-02-09] MEDS ORDERED: Propofol 500 MG/50 ML INFUS..BTL ONE (12:02)
[2019-02-09] MEDS ORDERED: Lidocaine -MPF 2% 2 ML VIAL ONE (12:02)
[2019-02-09] MEDS ORDERED: *HR* PHENYLEPHRINE 1,000 MCG/10 ML SYRINGE IVP ONE ×2 (12:05→13:08)
--- NOTE | 2019-02-09 14:42 | Anesthesia Evaluation Post Op ---
Date of Encounter: 02/09/19 Time of Encounter: 14:45 - Vital Signs Vital Signs: Vital Signs/O2 Sat/Glucose, Most Current Temp Pulse Resp BP Pulse Ox 02/09/19 14:35 98.7 F 85 16 91/56 98 02/09/19 14:25 99.1 F 100 16 94/62 95 02/09/19 13:00 93 16 86/50 96 02/09/19 12:50 98.6 F 100 16 97/67 96 - Lungs Lungs: Clear Ascult./Percussion - Airway Airway: Non-obstructed - Cardiovascular Baseline Rhythm - Mental Status Mental Status: Alert & Oriented, Answers Appropriately - Pain Pain Scale: 0 - Nausea Vomiting Nausea Vomiting: Not Present - Hydration Hydration: NPO - Discharge PostOp Status: Transfer Patient to floor
--- NOTE | 2019-02-09 15:39 | Nephrology Progress Note ---
Date of Encounter: 02/09/19 Time of Encounter: 15:37 - Assessment and Plan (1) THAD (acute kidney injury) Current Visit: Yes Status: Acute s/p HD yesterday - will let her rest from HD today and monitor renal function SCr down to 1.59 today, GFR 32 Continue to monitor and evaluate daily for need for JACK TAMP OPERATOR Follow renal protective strategy: daily weights, I/O's, and avoid other nephrotoxic agents if possible (2) CKD (chronic kidney disease) stage 4, GFR 15-29 ml/min Current Visit: Yes Status: Chronic Baseline GFR 20-30's with fluctuations (3) CHF (congestive heart failure) Current Visit: Yes Status: Acute Symptoms are improving after HD Continue diuresis, daily weights, and I/O's Qualifiers: Heart failure type: systolic Qualified Code(s): I50.20 - Unspecified systolic (congestive) heart failure (4) Hypokalemia Current Visit: Yes Status: Acute Improved to 4.4 today (5) Anemia Current Visit: Yes Status: Chronic Hgb 7.8 - no active bleeding identified by EGD/colonoscopy Will check iron studies and retic count Qualifiers: Anemia type: unspecified type Qualified Code(s): D64.9 - Anemia, unspecified (6) Metastatic renal cell carcinoma Current Visit: No Status: Chronic Qualifiers: Laterality: left Qualified Code(s): C64.2 - Malignant neoplasm of left kidney, except renal pelvis Subjective Principal diagnosis: THAD on CKD Interval history: Patient seen and examined. Reports she feels tired, but otherwise is doing okay. Denies worsening dyspnea. Reports her appetite is good. Denies confusion, N/V, or dysuria. Objective - Vital Signs Vital signs: Vital Signs Temp Pulse Resp BP Pulse Ox 02/09/19 14:45 98.9 F 86 16 86/61 94 02/09/19 14:35 98.7 F 85 16 91/56 98 02/09/19 14:25 99.1 F 100 16 94/62 95 02/09/19 13:00 93 16 86/50 96 02/09/19 12:50 98.6 F 100 16 97/67 96 02/09/19 07:50 97.8 F 110 16 111/73 98 02/09/19 05:42 99.2 F 110 15 92/65 94 02/09/19 00:02 98.2 F 80 16 94/63 97 02/08/19 20:27 97 02/08/19 20:12 107 105/70 02/08/19 18:26 99.3 F 101 16 131/81 97 02/08/19 15:47 98.6 F 99 18 87/58 99 Intake and Output 02/08/19 02/09/19 02/09/19 23:59 07:59 15:59 Intake Total 240 / 240 Output Total 400 / 400 1000 / 1000 Balance -400 / -400 -760 / -760 Intake: Oral 240 / 240 Output: Urine 400 / 400 Stool 1000 / 1000 Other: Meal NPO Stool Size Large Moderate Stool Consistency formed liquid soft Stool Color Brown Brown # Bowel Movements 1 2 Blood Glucose* 220 93 101 - General Appearance General appearance: Present: well-developed, well-nourished EENT: Present: ATNC, mucous membranes moist Neck: Present: supple Respiratory: Present: clear (diminished in bases) Cardiology: Present: edema (bilateral LE, improving), irregular rhythm Gastrointestinal: Present: normoactive bowel sounds, no tenderness Integumentary: Present: warm and dry Neurologic: Present: no focal deficit Musculoskeletal: Present: no cyanosis, no clubbing Psychiatric: Present: mood/affect appropriate, cooperative - Lab 02/09/19 04:00 02/09/19 04:00 Most recent lab results Calcium 8.4 mg/dL (8.6-10.3) L 02/09/19 04:00 Phosphorus 4.5 mg/dL (2.7-4.5) 02/02/19 18:04 Magnesium 2.1 mg/dL (1.6-2.6) 02/09/19 04:00 Consult Discharge Plan - Plan Referrals: Wade Waters MD [Primary Care Provider] - (patient will is going to rehab)
[2019-02-10 04:23] LABS: Hematocrit 24.6 % (35.3-44.9); Hemoglobin 7.4 g/dL (11.5-15.4); Mean Corpuscular HGB Conc 30.1 g/dL (31.6-35.5); Mean Corpuscular Hemoglobin 26.3 pg (28.0-33.3); Mean Corpuscular Volume 87.5 fL (83.0-100.0); Mean Platelet Volume 8.2 fL (9.4-12.4); Platelet Count 234 K/mcL (140-400); Red Blood Count 2.81 M/mcL (3.82-4.97); Red Cell Distribution Width 18.9 % (11.5-14.5); Retculocyte # 0.07 M/mcL (0.05-0.10); Reticulocyte % 2.7 % (1.6-2.8)
[2019-02-10 04:31] LABS: INR 1.2; Prothrombin Time 13.9 Seconds (9.4-12.1)
[2019-02-10 04:37] LABS: % Iron Saturation 7 % (15-50); Iron 20 mcg/dL (50-170); Transferrin 203 mg/dL (203-362)
[2019-02-10 04:38] LABS: Calcium 8.5 mg/dL (8.6-10.3)
[2019-02-10] MEDS: Insulin LISPRO 300 UNITS/3 ML VIAL SQ SCH ×3 (07:49→16:03)
[2019-02-10] MEDS: Diltiazem CD (24hr) 120 MG CAPSULE PO SCH (08:18)
[2019-02-10] MEDS: Furosemide 40 MG TABLET PO SCH (08:18)
[2019-02-10] MEDS: *HR* Morphine Sulfate SR (12 HR) 15 MG TABLET.ER PO SCH ×2 (09:04→19:26)
--- NOTE | 2019-02-10 09:19 | Nephrology Progress Note ---
Date of Encounter: 02/10/19 Time of Encounter: 11:13 - Assessment and Plan (1) THAD (acute kidney injury) Current Visit: Yes Status: Acute SCr up to 2.03 today, GFR 24 Continue to monitor and evaluate daily for need for SHIPFITTER HELPER Continue lasix at this time Coumadin has been on hold for 5 days - will plan to have a better idea if she needs a permacath tomorrow Follow renal protective strategy: daily weights, I/O's, and avoid other nephrotoxic agents if possible (2) CKD (chronic kidney disease) stage 4, GFR 15-29 ml/min Current Visit: Yes Status: Chronic Baseline GFR 20-30's with fluctuations (3) Anemia Current Visit: Yes Status: Chronic Hgb 7.4 - no active bleeding identified on EGD/colonoscopy Likely a combination of iron deficiency and anemia of CKD - ferritin result pending Possible increase in PO iron supplementation vs infusions Qualifiers: Anemia type: unspecified type Qualified Code(s): D64.9 - Anemia, unspecified (4) CHF (congestive heart failure) Current Visit: Yes Status: Acute Qualifiers: Heart failure type: systolic Qualified Code(s): I50.20 - Unspecified systolic (congestive) heart failure (5) Metastatic renal cell carcinoma Current Visit: No Status: Chronic Qualifiers: Laterality: left Qualified Code(s): C64.2 - Malignant neoplasm of left kidney, except renal pelvis Subjective Principal diagnosis: THAD on CKD Interval history: Patient seen and examined. Reports she feels well today. Denies worsening dyspn ea. Reports her appetite is good. Denies confusion, N/V, or dysuria. Objective - Vital Signs Vital signs: Vital Signs Temp Pulse Resp BP Pulse Ox 02/10/19 07:56 98.1 F 107 18 95/67 99 02/10/19 03:30 99.1 F 96 16 94/64 98 02/09/19 23:29 98.3 F 93 16 111/65 100 02/09/19 19:23 98.2 F 96 18 101/63 98 02/09/19 16:33 98.0 F 100 16 100/68 99 02/09/19 14:45 98.9 F 86 16 86/61 94 02/09/19 14:35 98.7 F 85 16 91/56 98 02/09/19 14:25 99.1 F 100 16 94/62 95 03/19/19 13:00 93 16 86/50 96 02/09/19 12:50 98.6 F 100 16 97/67 96 Intake and Output 02/09/19 02/10/19 02/10/19 23:59 07:59 15:59 Output Total 500 / 500 Balance -500 / -500 Output: Urine 500 / 500 Other: Weight 98.2 kg Blood Glucose* 125 86 - General Appearance General appearance: Present: well-developed, well-nourished EENT: Present: ATNC, mucous membranes moist Neck: Present: supple Respiratory: Present: clear (diminished in left base) Cardiology: Present: edema (bilateral LE), irregular rhythm Gastrointestinal: Present: normoactive bowel sounds, no tenderness Integumentary: Present: warm and dry Neurologic: Present: no focal deficit Musculoskeletal: Present: no cyanosis, no clubbing Psychiatric: Present: mood/affect appropriate, cooperative - Lab 02/10/19 03:55 02/10/19 03:55 Most recent lab results Calcium 8.5 mg/dL (8.6-10.3) L 02/10/19 03:55 Phosphorus 4.5 mg/dL (2.7-4.5) 02/02/19 18:04 Magnesium 2.1 mg/dL (1.6-2.6) 02/09/19 04:00 Consult Discharge Plan - Plan Referrals: Wade Waters MD [Primary Care Provider] - (patient will is going to rehab)
--- NOTE | 2019-02-10 12:16 | Internal Med Progress Note ---
Hospitalist Progress Note - Encounter Date of Encounter: 02/10/19 Time of Encounter: 12:05 - Subjective Interval History: Pt seen and examined at bedside. Pt sitting in chair and denies any discomfort at this time. Denies any sob, chest pain, abd pain,n/v, fever, or chills. S/P EGD and Colonoscopy on 02/09/19 Colonoscopy reported: Diverticulosis in the sigmoid colon, internal hemorrhoids EGD reported: Grade C reflux esophagitis NO acute bleeding reported. No overnight events reported Ten point ROS negative except as listed above - Exam Vitals: Temp Pulse Resp BP Pulse Ox 98.1 F 107 18 95/67 99 02/10/19 07:56 02/10/19 07:56 02/10/19 07:56 02/10/19 07:56 02/10/19 07:56 Exam: Gen.: No acute distress, alert and oriented 3, obese HEENT: EOMI, no scleral icterus, NC/AT Respiratory: Lungs are clear to auscultation bilaterally without any wheezing rhonchi or rales Cardiovascular: irregular rhythm, normal rate, no murmurs Abdomen: Soft, nontender and nondistended with normal bowel sounds Extremities: b/l LE edema Neuro: AAO x 3, no focal deficits - Assessment and Plan (1) Anemia Current Visit: Yes Status: Chronic Assessment and Plan: s/p EGD and colonoscopy on 02/09/2019, no acute bleeding reported Hgb: 7.4 today, no acute bleeding noted Anticoagulation on hold at this time. Will f/u with nephrology in regards to placement of a HD catheter prior to initiation of anticoagulation Will continue ferrous sulfate 325mg/PO daily Monitor H&H and transfuse for Hgb<7 awaiting ferritin results (2) HTN (hypertension) Current Visit: No Status: Chronic Assessment and Plan: Noted to be hypotensive this morning, clinically asymptomatic will hold antihypertensive medications for SBP<100 closely monitor BP (3) Afib Current Visit: No Status: Chronic Assessment and Plan: Rate controlled on metoprolol and cardizem. anticoagulation on hold given consideration for placement of permacath, will f/u with nephrology (4) Acquired hypothyroidism Current Visit: No Status: Chronic Assessment and Plan: continue home meds (5) S/p nephrectomy Current Visit: No Status: Chronic Assessment and Plan: as per patient there is recurrence of the cancer at the nephrectomy site. (6) Metastatic renal cell carcinoma Current Visit: No Status: Chronic (7) Edema of both lower extremities Current Visit: Yes Status: Acute Assessment and Plan: CHECKROOM CHIEF as per nephrology (8) Acute kidney injury superimposed on chronic kidney disease Current Visit: No Status: Acute Assessment and Plan: Nephrology on board, evaluation appreciated continue CHECKROOM CHIEF as per nephrology DVT Prophylaxis: SCDs - Time Spent with Patient Total time spent is greater than 50% in coordination of care (as documented) at patient's floor/unit and/or counseling patient: Greater than 35 minutes Plan of Care Discussed with: patient (patient/RN/consulting physician/pharmacist) Internal Medicine: Result - Labs CBC & Chem 7: 02/10/19 03:55 02/10/19 03:55 Labs: Short CBC 02/10/19 Range/Units 03:55 WBC 6.8 (4.3-11.1) K/mcL Hgb 7.4 L (11.5-15.4) g/dL Hct 24.6 L (35.3-44.9) % Plt Count 234 (140-400) K/mcL BMP 02/10/19 03:55 Sodium 139 Potassium 4.0 Chloride 104 Carbon Dioxide 27 BUN 22 Creatinine 2.03 H Glucose 89 Calcium 8.5 L - ABG Interpretation ABG results: PT/INR, D-dimer PT 13.9 Seconds (9.4-12.1) H 02/10/19 03:55 Consult Discharge Plan - Plan Referrals: Wade Waters MD [Primary Care Provider] - (patient will is going to rehab) (1) Anemia Qualifiers: Anemia type: unspecified type Qualified Code(s): D64.9 - Anemia, unspecified (2) HTN (hypertension) Qualifiers: Hypertension type: essential hypertension Qualified Code(s): I10 - Essential (primary) hypertension (3) Afib Qualifiers: Atrial fibrillation type: chronic Qualified Code(s): I48.2 - Chronic atrial fibrillation (6) Metastatic renal cell carcinoma Qualifiers: Laterality: left Qualified Code(s): C64.2 - Malignant neoplasm of left kidney, except renal pelvis
[2019-02-10 18:25] LABS: Ferritin 92 ng/mL (10-120)
[2019-02-11 06:19] LABS: Hematocrit 25.1 % (35.3-44.9); Hemoglobin 7.4 g/dL (11.5-15.4); Mean Corpuscular HGB Conc 29.5 g/dL (31.6-35.5); Mean Corpuscular Hemoglobin 25.7 pg (28.0-33.3); Mean Corpuscular Volume 87.2 fL (83.0-100.0); Mean Platelet Volume 8.2 fL (9.4-12.4); Platelet Count 255 K/mcL (140-400); Red Blood Count 2.88 M/mcL (3.82-4.97); Red Cell Distribution Width 18.8 % (11.5-14.5)
[2019-02-11 06:25] LABS: INR 1.2; Prothrombin Time 13.3 Seconds (9.4-12.1)
[2019-02-11 06:37] LABS: Calcium 8.6 mg/dL (8.6-10.3); Potassium 3.9 mEq/L (3.5-5.1)
[2019-02-11] MEDS: Diltiazem CD (24hr) 120 MG CAPSULE PO SCH (08:28)
[2019-02-11] MEDS: Furosemide 40 MG TABLET PO SCH (08:29)
[2019-02-11] MEDS: *HR* Morphine Sulfate SR (12 HR) 15 MG TABLET.ER PO SCH ×3 (08:29→20:57)
[2019-02-11] MEDS: Insulin LISPRO 300 UNITS/3 ML VIAL SQ SCH ×3 (08:35→16:35)
[2019-02-11] MEDS ORDERED: *HR* Heparin 5,000 UNIT/ML VIAL IVP PRN ×2 (12:40)
--- NOTE | 2019-02-11 13:00 | Internal Med Progress Note ---
Hospitalist Progress Note - Encounter Date of Encounter: 02/11/19 Time of Encounter: 12:58 - Subjective Interval History: Pt seen and examined at bedside. Sitting in chair, eating lunch. Denies any sob, pain at this time No overnight events reported. H&H low but stable, will start heparin gtt for anticoagulation as patient may need HD cath placement in the near future Ten point ROS negative except as listed above. - Exam Vitals: Temp Pulse Resp BP Pulse Ox 98.3 F 95 18 102/63 98 02/11/19 10:49 02/11/19 10:49 02/11/19 10:49 02/11/19 10:49 02/11/19 10:49 Exam: Gen.: No acute distress, alert and oriented 3, obese HEENT: EOMI, no scleral icterus, NC/AT Respiratory: Lungs are clear to auscultation bilaterally without any wheezing rhonchi or rales Cardiovascular: irregular rhythm, normal rate, no murmurs Abdomen: Soft, nontender and nondistended with normal bowel sounds Extremities: b/l LE edema Neuro: AAO x 3, no focal deficits - Assessment and Plan (1) Anemia Current Visit: Yes Status: Chronic Assessment and Plan: s/p EGD and colonoscopy on 02/09/2019, no acute bleeding reported Hgb: 7.4 today, no acute bleeding noted Nephrology on board and evaluating patient daily for continuation of HD, 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 Will continue ferrous sulfate 325mg/PO daily Monitor H&H and transfuse for Hgb<7 ferritin level consistent with anemia of chronic disease (2) HTN (hypertension) Current Visit: No Status: Chronic Assessment and Plan: Noted to be hypotensive this morning, clinically asymptomatic will hold antihypertensive medications for SBP<100 closely monitor BP (3) Afib Current Visit: No Status: Chronic Assessment and Plan: Rate controlled on metoprolol and cardizem. 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 (6) Metastatic renal cell carcinoma Current Visit: No Status: Chronic (7) Edema of both lower extremities Current Visit: Yes Status: Acute Assessment and Plan: RIPSAW MATCHER as per nephrology (8) Acute kidney injury superimposed on chronic kidney disease Current Visit: No Status: Acute Assessment and Plan: Nephrology on board, evaluation appreciated continue RIPSAW MATCHER as per nephrology DVT Prophylaxis: SCDs heparin gtt - Time Spent with Patient Total time spent is greater than 50% in coordination of care (as documented) at patient's floor/unit and/or counseling patient: 25 - 35 minutes Plan of Care Discussed with: patient (patient/RN/pharmacist/case management) Internal Medicine: Result - Labs CBC & Chem 7: 02/11/19 05:40 02/11/19 05:40 Labs: Short CBC 02/11/19 Range/Units 05:40 WBC 6.7 (4.3-11.1) K/mcL Hgb 7.4 L (11.5-15.4) g/dL Hct 25.1 L (35.3-44.9) % Plt Count 255 (140-400) K/mcL BMP 02/11/19 05:40 Sodium 139 Potassium 3.9 Chloride 103 Carbon Dioxide 26 BUN 26 H Creatinine 2.46 H Glucose 88 Calcium 8.6 - ABG Interpretation ABG results: PT/INR, D-dimer PT 13.3 Seconds (9.4-12.1) H 02/11/19 05:40 Consult Discharge Plan - Plan Referrals: Wade Waters MD [Primary Care Provider] - (patient will is going to rehab) (1) Anemia Qualifiers: Anemia type: unspecified type Qualified Code(s): D64.9 - Anemia, unspecified (2) HTN (hypertension) Qualifiers: Hypertension type: essential hypertension Qualified Code(s): I10 - Essential (primary) hypertension (3) Afib Qualifiers: Atrial fibrillation type: chronic Qualified Code(s): I48.2 - Chronic atrial fibrillation (6) Metastatic renal cell carcinoma Qualifiers: Laterality: left Qualified Code(s): C64.2 - Malignant neoplasm of left kidney, except renal pelvis
[2019-02-11 13:22] LABS: Hematocrit 28.2 % (35.3-44.9); Hemoglobin 8.4 g/dL (11.5-15.4); Mean Corpuscular HGB Conc 29.8 g/dL (31.6-35.5); Mean Corpuscular Hemoglobin 26.2 pg (28.0-33.3); Mean Corpuscular Volume 87.9 fL (83.0-100.0); Mean Platelet Volume 8.6 fL (9.4-12.4); Platelet Count 281 K/mcL (140-400); Red Blood Count 3.21 M/mcL (3.82-4.97); Red Cell Distribution Width 18.9 % (11.5-14.5)
[2019-02-11] MEDS: Heparin 25,000 UNIT/250 ML D5W 25,000 UNIT/250 ML IV.SOLN IVC SCH (13:25)
[2019-02-11 13:30] LABS: INR 1.1; Prothrombin Time 12.4 Seconds (9.4-12.1)
--- NOTE | 2019-02-11 19:28 | Nephrology Progress Note ---
Date of Encounter: 02/11/19 - Assessment and Plan (1) Pleural effusion Current Visit: Yes Status: Acute (2) Edema of both lower extremities Current Visit: Yes Status: Acute (3) CHF (congestive heart failure) Current Visit: Yes Status: Acute Qualifiers: Heart failure type: systolic Qualified Code(s): I50.20 - Unspecified systolic (congestive) heart failure (4) THAD (acute kidney injury) Current Visit: Yes Status: Acute (5) CKD (chronic kidney disease) stage 4, GFR 15-29 ml/min Current Visit: Yes Status: Chronic Subjective Principal diagnosis: THAD on CKD Interval history: Pt seen and examined on HD today, s/p UF yesterday with 4kg removed. Doing well. Objective - Vital Signs Vital signs: Vital Signs Temp Pulse Resp BP Pulse Ox 02/11/19 19:14 98.9 F 115 17 104/73 95 02/11/19 16:27 98.1 F 98 18 108/70 97 02/11/19 10:49 98.3 F 95 18 102/63 98 02/11/19 08:38 99 02/11/19 07:28 98.4 F 102 16 94/59 99 02/11/19 03:09 98.2 F 82 16 107/71 97 02/10/19 23:37 98.1 F 91 16 96/65 100 Intake and Output 02/11/19 02/11/19 02/11/19 07:59 15:59 23:59 Intake Total 240 / 240 Balance 240 / 240 Intake: Oral 240 / 240 Other: Meal Dinner Percent of Meal Consumed 100% Blood Glucose* 88 117 152 - Lab 02/11/19 12:57 02/11/19 05:40 Most recent lab results Calcium 8.6 mg/dL (8.6-10.3) 02/11/19 05:40 Phosphorus 4.5 mg/dL (2.7-4.5) 02/02/19 18:04 Magnesium 2.1 mg/dL (1.6-2.6) 02/09/19 04:00 Consult Discharge Plan - Plan Referrals: Wade Waters MD [Primary Care Provider] - (patient will is going to rehab)
[2019-02-12 03:29] LABS: Basophils # 0.1 K/mcL (0.0-0.2); Basophils % 0.8 %; Eosinophils # 0.3 K/mcL (0.0-0.6); Eosinophils % 4.3 %; Hematocrit 25.5 % (35.3-44.9); Hemoglobin 7.7 g/dL (11.5-15.4); Immature Granulocytes % 0.4 % (0-4); Lymphocytes # 1.8 K/mcL (0.6-4.6); Lymphocytes % 23.7 %; Mean Corpuscular HGB Conc 30.2 g/dL (31.6-35.5); Mean Corpuscular Hemoglobin 26.5 pg (28.0-33.3); Mean Corpuscular Volume 87.6 fL (83.0-100.0); Mean Platelet Volume 8.2 fL (9.4-12.4); Monocytes % 12.8 %; Neutrophils # 4.4 K/mcL (1.6-8.9); Platelet Count 242 K/mcL (140-400); Red Blood Count 2.91 M/mcL (3.82-4.97); Red Cell Distribution Width 18.6 % (11.5-14.5)
[2019-02-12 03:42] LABS: Heparin anti-factor XA UFH 0.68 IU/mL (0.30-0.70); INR 1.2; Prothrombin Time 13.3 Seconds (9.4-12.1)
[2019-02-12 03:45] LABS: Calcium 8.4 mg/dL (8.6-10.3); Magnesium 2.1 mg/dL (1.6-2.6); Phosphorous 4.8 mg/dL (2.7-4.5)
[2019-02-12] MEDS: Heparin 25,000 UNIT/250 ML D5W 25,000 UNIT/250 ML IV.SOLN IVC SCH (05:23)
[2019-02-12] MEDS: Insulin LISPRO 300 UNITS/3 ML VIAL SQ SCH ×3 (07:48→16:14)
--- NOTE | 2019-02-12 08:55 | Internal Med Progress Note ---
Hospitalist Progress Note - Encounter Date of Encounter: 02/12/19 Time of Encounter: 08:12 - Subjective Interval History: Pt seen and examined with family present at bedside. Pt sitting in chair, currently on heparin drip. Denies any chest pain or shortness of breath. No overnight events were reported. Ten point ROS negative except as listed above As per nephrology, pt is to be closely monitored over the weekend. If renal function remains stable, no further INKING MACHINE TENDER will be necessary, however if renal function deteriorates over the weekend, pt will likely need a permacath placement with continuation of HD. At this time, will continue heparin drip. Tentative d/c on Friday (02/15/19) - Exam Vitals: Temp Pulse Resp BP Pulse Ox 98.5 F 103 18 100/70 100 02/12/19 06:51 02/12/19 06:51 02/12/19 06:51 02/12/19 06:51 02/12/19 06:51 Exam: Gen.: No acute distress, alert and oriented 3, obese HEENT: EOMI, no scleral icterus, NC/AT Respiratory: Lungs are clear to auscultation bilaterally without any wheezing rhonchi or rales Cardiovascular: irregular rhythm, normal rate, no murmurs Abdomen: Soft, nontender and nondistended with normal bowel sounds Extremities: b/l LE edema Neuro: AAO x 3, no focal deficits - Assessment and Plan (1) Anemia Current Visit: Yes Status: Chronic Assessment and Plan: s/p EGD and colonoscopy on 02/09/2019, no acute bleeding reported Hgb: 7.4 today, no acute bleeding noted Nephrology on board and evaluating patient daily for continuation of HD, 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 Will continue ferrous sulfate 325mg/PO daily IV iron and aranesp to be administered as per nephrology Monitor H&H and transfuse for Hgb<7 ferritin level consistent with anemia of chronic disease (2) HTN (hypertension) Current Visit: No Status: Chronic Assessment and Plan: BP within acceptable range will hold antihypertensive medications for SBP<100 closely monitor BP (3) Afib Current Visit: No Status: Chronic Assessment and Plan: Noted to be tachycardic this morning, pt did not receive Metoprolol and Cardizem dose yesterday due to hypotension, will administer these medications today denies any chest pain or discomfort at this time anticoagulated with heparin at this time Nephrology on board and evaluating patient daily for continuation of HD, 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 (4) Acquired hypothyroidism Current Visit: No Status: Chronic Assessment and Plan: continue home meds (5) S/p nephrectomy Current Visit: No Status: Chronic Assessment and Plan: as per patient there is recurrence of the cancer at the nephrectomy site. (6) Metastatic renal cell carcinoma Current Visit: No Status: Chronic Assessment and Plan: continue home meds (7) Edema of both lower extremities Current Visit: Yes Status: Acute Assessment and Plan: INKING MACHINE TENDER as per nephrology (8) Acute kidney injury superimposed on chronic kidney disease Current Visit: No Status: Acute Assessment and Plan: Nephrology on board, evaluation appreciated continue INKING MACHINE TENDER as per nephrology DVT Prophylaxis: SCDs heparin gtt - Time Spent with Patient Total time spent is greater than 50% in coordination of care (as documented) at patient's floor/unit and/or counseling patient: 25 - 35 minutes Plan of Care Discussed with: patient (patient/family/RN/wine consultant/pharmacist) Internal Medicine: Result - Labs CBC & Chem 7: 02/12/19 03:10 02/12/19 03:10 Labs: Short CBC 02/11/19 02/12/19 Range/Units 12:57 03:10 WBC 7.4 7.5 (4.3-11.1) K/mcL Hgb 8.4 L 7.7 L (11.5-15.4) g/dL Hct 28.2 L 25.5 L (35.3-44.9) % Plt Count 281 242 (140-400) K/mcL Neutrophils # 4.4 (1.6-8.9) K/mcL BMP 02/12/19 03:10 Sodium 138 Potassium 4.0 Chloride 103 Carbon Dioxide 26 BUN 29 H Creatinine 2.47 H Glucose 111 H Calcium 8.4 L - ABG Interpretation ABG results: PT/INR, D-dimer PT 13.3 Seconds (9.4-12.1) H 02/12/19 03:10 Consult Discharge Plan - Plan Referrals: Wade Waters MD [Primary Care Provider] - (patient will is going to rehab) ____ (1) Anemia Qualifiers: Anemia type: unspecified type Qualified Code(s): D64.9 - Anemia, unspecified (2) HTN (hypertension) Qualifiers: Hypertension type: essential hypertension Qualified Code(s): I10 - Essential (primary) hypertension (3) Afib Qualifiers: Atrial fibrillation type: chronic Qualified Code(s): I48.2 - Chronic atrial fibrillation (6) Metastatic renal cell carcinoma Qualifiers: Laterality: left Qualified Code(s): C64.2 - Malignant neoplasm of left kidney, except renal pelvis
[2019-02-12] MEDS ORDERED: PAZOPANIB PO SCH (09:00)
[2019-02-12] MEDS ORDERED: VITAMIN D3 PO SCH (09:00)
[2019-02-12] MEDS ORDERED: CALCIUM CITRATE PO SCH (09:00)
[2019-02-12] MEDS ORDERED: [UNRECOGNIZED DRUG - OTHER] PO SCH (09:00)
[2019-02-12] MEDS ORDERED: NON-FORMULARY MEDICATION 1 EACH EACH (Oxybutynin Chloride [Ditropan Xl] 10 MG) PO SCH (09:00)
[2019-02-12] MEDS: *HR* Morphine Sulfate SR (12 HR) 15 MG TABLET.ER PO SCH ×2 (09:12→21:04)
[2019-02-12] MEDS: Aspirin Enteric Coated 81 MG Tablet PO SCH (09:13)
[2019-02-12] MEDS: Diltiazem CD (24hr) 120 MG CAPSULE PO SCH (09:13)
[2019-02-12] MEDS: Furosemide 40 MG TABLET PO SCH (09:13)
[2019-02-12] MEDS ORDERED: Ferumoxytol 510 MG in 0.9 % Sodium Chloride 100 ML IVPB ONE (10:16)
--- NOTE | 2019-02-12 11:30 | Nephrology Progress Note ---
Date of Encounter: 02/12/19 Time of Encounter: 08:10 - Assessment and Plan (1) THAD (acute kidney injury) Current Visit: Yes Status: Acute Renal function stable today: SCr up to 2.47, GFR 19 Continue lasix 40mg daily Will not place permacath or continue MANAGER REPORT at this time. Keep temp HD cath in place for now - will continue to monitor renal function and evaluate need for MANAGER REPORT Previously on xarelto and then switched to coumadin during her multiple hospitalizations likely due to worsening renal function. Another option going forward would be renally dosed eliquis (2.5 mg twice daily) Follow renal protective strategy: daily weights, I/O's, and avoid other nephrotoxic agents if possible (2) CKD (chronic kidney disease) stage 4, GFR 15-29 ml/min Current Visit: Yes Status: Chronic Baseline 20-30's with fluctuations (3) Anemia Current Visit: Yes Status: Chronic Hgb 7.7 in the setting of low iron and CKD Will plan for IV iron (feraheme) and aranesp today - will plan to continue aranesp as out-patient Continue to monitor CBC Qualifiers: Anemia type: unspecified type Qualified Code(s): D64.9 - Anemia, unspecified (4) CHF (congestive heart failure) Current Visit: Yes Status: Acute Qualifiers: Heart failure type: systolic Qualified Code(s): I50.20 - Unspecified systolic (congestive) heart failure (5) Metastatic renal cell carcinoma Current Visit: No Status: Chronic Qualifiers: Laterality: left Qualified Code(s): C64.2 - Malignant neoplasm of left kidney, except renal pelvis Subjective Principal diagnosis: THAD on CKD Interval history: Patient seen and examined. Reports she feels well today. She is sitting up in the chair. Denies worsening dyspnea. Reports her appetite is good. Denies confusion, N/V, or dysuria. States she has been working with therapy to get stronger. Objective - Vital Signs Vital signs: Vital Signs Temp Pulse Resp BP Pulse Ox 02/12/19 06:51 98.5 F 103 18 100/70 100 02/12/19 04:17 97.8 F 101 17 103/70 99 02/12/19 00:21 97.6 F 111 17 114/79 100 02/11/19 19:14 98.9 F 115 17 104/73 95 02/11/19 16:27 98.1 F 98 18 108/70 97 Intake and Output 02/11/19 02/12/19 02/12/19 23:59 07:59 15:59 Intake Total 343 / 343 247.0 / 247.0 120 / 120 Balance 343 / 343 247.0 / 247.0 120 / 120 Intake: IV Fluids 103 / 103 147.0 / 147.0 Heparin 25,000 UNIT/250 ML D5W 103 / 103 147.0 / 147.0 25,000 unit In 250 ml @ 14 UNIT /KG/HR 13.832 mls/hr IVC . Q18H5M RAAD Rx#:[id number] Oral 240 / 240 100 / 100 120 / 120 Other: Meal Dinner Breakfast Percent of Meal Consumed 100% 80% Weight 97 kg Blood Glucose* 152 92 Patient Weight 02/12/19 23:59 Weight 97 kg - General Appearance General appearance: Present: well-developed, well-nourished EENT: Present: ATNC, mucous membranes moist Neck: Present: supple Respiratory: Present: clear (diminished in left base) Cardiology: Present: edema (bilateral LE), irregular rhythm Gastrointestinal: Present: normoactive bowel sounds, no tenderness Integumentary: Present: warm and dry Neurologic: Present: no focal deficit Musculoskeletal: Present: no cyanosis, no clubbing Psychiatric: Present: mood/affect appropriate, cooperative - Lab 02/12/19 03:10 02/12/19 03:10 Most recent lab results Calcium 8.4 mg/dL (8.6-10.3) L 02/12/19 03:10 Phosphorus 4.8 mg/dL (2.7-4.5) H 02/12/19 03:10 Magnesium 2.1 mg/dL (1.6-2.6) 02/12/19 03:10 Consult Discharge Plan - Plan Referrals: Wade Waters MD [Primary Care Provider] - (patient will is going to rehab)
[2019-02-12] MEDS: Cholecalciferol (D-3) 1,000 UNIT TABLET PO SCH (12:58)
[2019-02-13] MEDS: Heparin 25,000 UNIT/250 ML D5W 25,000 UNIT/250 ML IV.SOLN IVC SCH ×2 (01:00→20:17)
[2019-02-13 04:02] LABS: Basophils % 0.6 %; Eosinophils # 0.2 K/mcL (0.0-0.6); Eosinophils % 3.4 %; Hematocrit 25.1 % (35.3-44.9); Hemoglobin 7.6 g/dL (11.5-15.4); Immature Granulocytes % 0.3 % (0-4); Lymphocytes # 1.5 K/mcL (0.6-4.6); Lymphocytes % 21.3 %; Mean Corpuscular HGB Conc 30.3 g/dL (31.6-35.5); Mean Corpuscular Hemoglobin 26.5 pg (28.0-33.3); Mean Corpuscular Volume 87.5 fL (83.0-100.0); Mean Platelet Volume 8.4 fL (9.4-12.4); Monocytes # 0.9 K/mcL (0.0-1.3); Monocytes % 13.3 %; Neutrophils # 4.3 K/mcL (1.6-8.9); Platelet Count 265 K/mcL (140-400); Red Blood Count 2.87 M/mcL (3.82-4.97); Red Cell Distribution Width 18.7 % (11.5-14.5); Segmented Neutrophils % 61.1 %
[2019-02-13 04:13] LABS: INR 1.1; Prothrombin Time 12.9 Seconds (9.4-12.1)
[2019-02-13 04:22] LABS: Calcium 8.7 mg/dL (8.6-10.3); Magnesium 2.1 mg/dL (1.6-2.6); Phosphorous 5.2 mg/dL (2.7-4.5); Potassium 3.6 mEq/L (3.5-5.1)
[2019-02-13] MEDS: Insulin LISPRO 300 UNITS/3 ML VIAL SQ SCH ×3 (08:38→16:26)
[2019-02-13] MEDS: Aspirin Enteric Coated 81 MG Tablet PO SCH (08:39)
--- NOTE | 2019-02-13 08:46 | Nephrology Progress Note ---
Date of Encounter: 02/13/19 Time of Encounter: 09:45 - Assessment and Plan (1) THAD (acute kidney injury) Current Visit: Yes Status: Acute She has been on intermittent hemodialysis for nonoliguric THAD on CKD, and yesterday I held the treatment. Her GFR had been stable at around 19 the last 2 days; however, her GFR is down to 17 today. She is not overly uremic or severely fluid overloaded, so I will hold off on HD today, and in the meantime as of yesterday I started Feraheme 1 and Aranesp 40mcg SQ x1 for her anemia. If her anemia can improve, sometimes renal function will slightly stabilize. Ideally she could be discharged on Friday or Friday, if her renal function is stable; however, if her GFR drops significantly below 15, then I would have a Permacath placed. So in the meantime please continue to hold Coumadin or other anticoagulants while keeping her on a heparin drip, just in case if she'll need a Permacath. Thank you (2) CHF (congestive heart failure) Current Visit: Yes Status: Acute Qualifiers: Heart failure type: systolic Qualified Code(s): I50.20 - Unspecified systolic (congestive) heart failure (3) Edema of both lower extremities Current Visit: Yes Status: Acute (4) Pleural effusion Current Visit: Yes Status: Acute (5) CKD (chronic kidney disease) stage 4, GFR 15-29 ml/min Current Visit: Yes Status: Chronic Subjective Principal diagnosis: THAD on CKD Interval history: Pt was s/e and she voiced feeling about the same; and she did not affirm major uremic complaints. Objective - Vital Signs Vital signs: Vital Signs Temp Pulse Resp BP Pulse Ox 02/13/19 07:05 97.4 F L 99 18 86/56 99 02/13/19 04:44 98.0 F 103 16 93/62 98 02/13/19 00:46 97.7 F 113 16 95/60 99 02/12/19 21:37 98.6 F 105 16 100/57 97 02/12/19 21:06 98.1 F 117 14 93/61 97 02/12/19 15:31 98.8 F 115 18 102/69 100 02/12/19 12:59 104/70 02/12/19 11:55 98.7 F 105 16 104/70 98 Intake and Output 02/12/19 02/13/19 02/13/19 23:59 07:59 15:59 Intake Total 250 / 250 162 / 162 Output Total 950 / 950 800 / 800 Balance -700 / -700 -638 / -638 Intake: IV Fluids 250 / 250 62 / 62 Heparin 25,000 UNIT/250 ML D5W 250 / 250 62 / 62 25,000 unit In 250 ml @ 14 UNIT /KG/HR 13.832 mls/hr IVC . Q18H5M RAAD Rx#:[id number] Oral 100 / 100 Output: Urine 950 / 950 800 / 800 Other: # Voids 2 Weight 97.6 kg Blood Glucose* 133 83 Patient Weight 02/13/19 23:59 Weight 97.6 kg - General Appearance Exam: General appearance: Present: well-developed, well-nourished, sitting in the bedside chair EENT: Present: ATNC, mucous membranes moist Neck: Present: supple Respiratory: Present: clear but mildly diminished in left base Cardiology: Present: edema (bilateral LE pretibial pitting), irregular rhythm Gastrointestinal: Present: normoactive bowel sounds, no tenderness Integumentary: Present: warm and dry, chronic venous stasis Neurologic: Present: no focal deficit Musculoskeletal: Present: no cyanosis, no clubbing Psychiatric: Present: mood/affect appropriate, cooperative - Lab 02/14/19 05:20 02/14/19 05:20 Most recent lab results Calcium 8.7 mg/dL (8.6-10.3) 02/13/19 03:16 Phosphorus 5.2 mg/dL (2.7-4.5) H 02/13/19 03:16 Magnesium 2.1 mg/dL (1.6-2.6) 02/13/19 03:16 Consult Discharge Plan - Plan Referrals: Wade Waters MD [Primary Care Provider] - (patient will is going to rehab)
[2019-02-13] MEDS: *HR* Morphine Sulfate SR (12 HR) 15 MG TABLET.ER PO SCH ×2 (09:46→22:30)
[2019-02-13] MEDS: Furosemide 40 MG TABLET PO SCH (09:46)
[2019-02-13] MEDS: Diltiazem CD (24hr) 120 MG CAPSULE PO SCH (09:46)
--- NOTE | 2019-02-13 10:43 | Internal Med Progress Note ---
Hospitalist Progress Note - Encounter Date of Encounter: 02/13/19 Time of Encounter: 09:45 - Subjective Interval History: Pt seen and examined at bedside. Sitting in chair and denies any headache, sob, chest pain at this time. Reports of constipation but denies any abd pain. Remains hypotensive with MAP of 66 and clinically asymptomatic. Ten point ROS negative except as listed above No overnight events reported Unable to administer Lasix, Metoprolol, Cardizem this morning due to hypotension - Exam Vitals: Temp Pulse Resp BP Pulse Ox 97.4 F L 99 18 86/56 99 02/13/19 07:05 02/13/19 07:05 02/13/19 07:05 02/13/19 07:05 02/13/19 07:05 Exam: Gen.: No acute distress, alert and oriented 3, obese HEENT: EOMI, no scleral icterus, NC/AT Respiratory: Lungs are clear to auscultation bilaterally without any wheezing rhonchi or rales Cardiovascular: irregular rhythm, normal rate, no murmurs Abdomen: Soft, nontender and nondistended with normal bowel sounds Extremities: b/l LE edema Neuro: AAO x 3, no focal deficits - Assessment and Plan (1) Anemia Current Visit: Yes Status: Chronic Assessment and Plan: s/p EGD and colonoscopy on 02/09/2019, no acute bleeding reported Hgb: 7.6 today, no acute bleeding noted Nephrology on board and evaluating patient daily for continuation of HD, pt may need HD manager terminal, therefore will hold off starting coumadin at this time and will continue Heparin gtt for anticoagulation at this time. IV iron and aranesp as per nephrology Monitor H&H and transfuse for Hgb<7 ferritin level consistent with anemia of chronic disease (2) HTN (hypertension) Current Visit: No Status: Chronic Assessment and Plan: Hypotensive but clinically asymptomatic will hold antihypertensive medications for SBP<100 closely monitor BP (3) Afib Current Visit: No Status: Chronic Assessment and Plan: Noted to be tachycardic this morning, clinically asymptomatic. Unable to administer Metoprolol and Cardizem due to hypotension, will closely monitor denies any chest pain or discomfort at this time anticoagulated with heparin at this time Nephrology on board and evaluating patient daily for continuation of HD, pt may need HD senior care, therefore will hold off starting coumadin in anticipation of placement of permacath If renal function remains stable over the weekend and no need for PAINT TECHNICIAN is warranted, then pt can be transitioned to coumadin therapy on Friday with p ossible discharge. (4) Acquired hypothyroidism Current Visit: No Status: Chronic Assessment and Plan: continue home meds (5) S/p nephrectomy Current Visit: No Status: Chronic Assessment and Plan: as per patient there is recurrence of the cancer at the nephrectomy site. (6) Metastatic renal cell carcinoma Current Visit: No Status: Chronic Assessment and Plan: continue home meds (7) Edema of both lower extremities Current Visit: Yes Status: Acute Assessment and Plan: PAINT TECHNICIAN as per nephrology (8) Acute kidney injury superimposed on chronic kidney disease Current Visit: No Status: Acute Assessment and Plan: Nephrology on board, evaluation appreciated continue PAINT TECHNICIAN as per nephrology (9) Constipation Current Visit: Yes Status: Acute Assessment and Plan: Senna plus 2tabs PO BID Miralax qdaily prn DVT Prophylaxis: on heparin drip - Time Spent with Patient Total time spent is greater than 50% in coordination of care (as documented) at patient's floor/unit and/or counseling patient: 25 - 35 minutes Plan of Care Discussed with: patient (patient/RN) Internal Medicine: Result - Labs CBC & Chem 7: 02/13/19 03:16 02/13/19 03:16 Labs: Short CBC 02/13/19 Range/Units 03:16 WBC 7.0 (4.3-11.1) K/mcL Hgb 7.6 L (11.5-15.4) g/dL Hct 25.1 L (35.3-44.9) % Plt Count 265 (140-400) K/mcL Neutrophils # 4.3 (1.6-8.9) K/mcL BMP 02/13/19 03:16 Sodium 136 Potassium 3.6 Chloride 102 Carbon Dioxide 27 BUN 32 H Creatinine 2.72 H Glucose 96 Calcium 8.7 - ABG Interpretation ABG results: PT/INR, D-dimer PT 12.9 Seconds (9.4-12.1) H 02/13/19 03:16 Consult Discharge Plan - Plan Referrals: Wade Waters MD [Primary Care Provider] - (patient will is going to rehab) _ (1) Anemia Qualifiers: Anemia type: unspecified type Qualified Code(s): D64.9 - Anemia, unspecified (2) HTN (hypertension) Qualifiers: Hypertension type: essential hypertension Qualified Code(s): I10 - Essential (primary) hypertension (3) Afib Qualifiers: Atrial fibrillation type: chronic Qualified Code(s): I48.2 - Chronic atrial fibrillation (6) Metastatic renal cell carcinoma Qualifiers: Laterality: left Qualified Code(s): C64.2 - Malignant neoplasm of left kidney, except renal pelvis (9) Constipation Qualifiers: Constipation type: drug induced constipation Qualified Code(s): K59.03 - Drug induced constipation
[2019-02-13] MEDS: Cholecalciferol (D-3) 1,000 UNIT TABLET PO SCH (11:43)
[2019-02-13] MEDS: Sennosides/Docusate Sodium TABLET PO SCH ×2 (11:43→20:16)
[2019-02-14 05:34] LABS: Basophils % 0.6 %; Eosinophils # 0.2 K/mcL (0.0-0.6); Eosinophils % 3.4 %; Hemoglobin 7.1 g/dL (11.5-15.4); Immature Granulocytes % 0.3 % (0-4); Lymphocytes # 1.1 K/mcL (0.6-4.6); Lymphocytes % 15.6 %; Mean Corpuscular HGB Conc 30.9 g/dL (31.6-35.5); Mean Corpuscular Hemoglobin 26.5 pg (28.0-33.3); Mean Corpuscular Volume 85.8 fL (83.0-100.0); Mean Platelet Volume 8.4 fL (9.4-12.4); Neutrophils # 4.4 K/mcL (1.6-8.9); Platelet Count 223 K/mcL (140-400); Red Blood Count 2.68 M/mcL (3.82-4.97); Red Cell Distribution Width 18.7 % (11.5-14.5); Segmented Neutrophils % 65.1 %
[2019-02-14 05:57] LABS: Calcium 8.5 mg/dL (8.6-10.3); Potassium 3.4 mEq/L (3.5-5.1)
[2019-02-14 05:58] LABS: Phosphorous 5.1 mg/dL (2.7-4.5)
[2019-02-14] MEDS: Insulin LISPRO 300 UNITS/3 ML VIAL SQ SCH ×3 (06:59→16:21)
[2019-02-14] MEDS: Sennosides/Docusate Sodium TABLET PO SCH ×2 (07:21→20:00)
[2019-02-14] MEDS: Aspirin Enteric Coated 81 MG Tablet PO SCH (07:21)
[2019-02-14] MEDS: *HR* Morphine Sulfate SR (12 HR) 15 MG TABLET.ER PO SCH ×2 (07:22→20:00)
[2019-02-14] MEDS: Furosemide 40 MG TABLET PO SCH (07:22)
[2019-02-14] MEDS: Diltiazem CD (24hr) 120 MG CAPSULE PO SCH (07:22)
--- NOTE | 2019-02-14 07:41 | Nephrology Progress Note ---
Date of Encounter: 02/14/19 Time of Encounter: 09:00 - Assessment and Plan (1) THAD (acute kidney injury) Current Visit: Yes Status: Acute She has been on intermittent hemodialysis for nonoliguric THAD on CKD. Her GFR had been stable at around 17 the last 2 days and before that at 19 for two days. She is not overly uremic or severely fluid overloaded, so I will hold off on HD again today (Friday). Ideally she could be discharged on Friday or Friday, if her renal function is stable; however, if her GFR drops significantly below 15, then I would have a Permacath placed and instead of thrice weekly HD, she may be better served by twice weekly HD (if her renal function continues to worsen). So in the meantime please continue to hold Coumadin or other anticoagulants while keeping her on a heparin drip, just in case if she'll need a Permacath. I've made her NPO just in case, and in the AM, if her labs are worsen, then I'll order a Permcath but it stable, then I'd order the removal of the temporary HD catheter. Continue to follow a renal protective strategy, including strict I's and O's, daily weights, avoidance of nephrotoxic agents. Thank you (2) CHF (congestive heart failure) Current Visit: Yes Status: Acute Qualifiers: Heart failure type: systolic Qualified Code(s): I50.20 - Unspecified systolic (congestive) heart failure (3) Edema of both lower extremities Current Visit: Yes Status: Acute (4) Pleural effusion Current Visit: Yes Status: Acute (5) CKD (chronic kidney disease) stage 4, GFR 15-29 ml/min Current Visit: Yes Status: Chronic Subjective Principal diagnosis: THAD on CKD Interval history: Pt was s/e and she voiced feeling about the same; and she did not affirm major uremic complaints. Her son was present in her room. She voided consent to proceed if she needed a Permacath, she affirmed. Objective - Vital Signs Vital signs: Vital Signs Temp Pulse Resp BP Pulse Ox 02/14/19 06:42 97.4 F L 102 20 115/71 100 02/14/19 03:39 98.1 F 118 22 113/74 99 02/13/19 23:57 99.2 F 104 18 107/73 100 02/13/19 18:38 98.6 F 116 19 95/64 97 02/13/19 16:08 98.8 F 116 16 117/88 99 02/13/19 11:24 98.3 F 109 18 96/67 97 Intake and Output 02/13/19 02/13/19 02/14/19 15:59 23:59 07:59 Intake Total 720 / 720 610 / 610 130 / 130 Output Total 500 / 500 Balance 720 / 720 110 / 110 130 / 130 Intake: IV Fluids 250 / 250 130 / 130 Heparin 25,000 UNIT/250 ML D5W 250 / 250 130 / 130 25,000 unit In 250 ml @ 14 UNIT /KG/HR 13.832 mls/hr IVC . Q18H5M RA[facility] Rx#:[id number] Oral 720 / 720 360 / 360 Output: Urine 500 / 500 Other: Meal Lunch Dinner Percent of Meal Consumed 100% 100% Blood Glucose* 137 124 94 - General Appearance Exam: General appearance: Present: well-developed, well-nourished, sitting in the bedside chair EENT: Present: ATNC, mucous membranes moist Neck: Present: supple Respiratory: Present: clear but mildly diminished in left base Cardiology: Present: edema (bilateral LE pretibial pitting), irregular rhythm Gastrointestinal: Present: normoactive bowel sounds, no tenderness Integumentary: Present: warm and dry, chronic venous stasis Neurologic: Present: no focal deficit Musculoskeletal: Present: no cyanosis, no clubbing Psychiatric: Present: mood/affect appropriate, cooperative - Lab 02/14/19 05:20 02/14/19 05:20 Most recent lab results Calcium 8.5 mg/dL (8.6-10.3) L 02/14/19 05:20 Phosphorus 5.1 mg/dL (2.7-4.5) H 02/14/19 05:20 Magnesium 2.0 mg/dL (1.6-2.6) 02/14/19 05:20 Consult Discharge Plan - Plan Referrals: Wade Waters MD [Primary Care Provider] - (patient will is going to rehab)
--- NOTE | 2019-02-14 10:40 | Internal Med Progress Note ---
Hospitalist Progress Note - Encounter Date of Encounter: 02/14/19 Time of Encounter: 10:16 - Subjective Interval History: Pt seen and examined with family present at bedside. Pt sitting in chair and continues to have constipation but denies any abdominal pain. No overnight events reported Ten point ROS negative except as listed above. - Exam Vitals: Temp Pulse Resp BP Pulse Ox 97.4 F L 102 20 115/71 100 02/14/19 06:42 02/14/19 06:42 02/14/19 06:42 02/14/19 06:42 02/14/19 06:42 Exam: Gen.: No acute distress, alert and oriented 3, obese HEENT: EOMI, no scleral icterus, NC/AT Respiratory: Lungs are clear to auscultation bilaterally without any wheezing rhonchi or rales Cardiovascular: irregular rhythm, normal rate, no murmurs Abdomen: Soft, nontender and nondistended with normal bowel sounds Extremities: b/l LE edema Neuro: AAO x 3, no focal deficits - Assessment and Plan (1) Anemia Current Visit: Yes Status: Chronic Assessment and Plan: s/p EGD and colonoscopy on 02/09/2019, no acute bleeding reported Hgb: 7.1 today, no acute bleeding noted Nephrology on board and evaluating patient daily for continuation of HD, pt may need HD manager intermediate, therefore will hold off starting coumadin at this time and will continue Heparin gtt for anticoagulation at this time. IV iron and aranesp as per nephrology Monitor H&H and transfuse for Hgb<7 ferritin level consistent with anemia of chronic disease (2) HTN (hypertension) Current Visit: No Status: Chronic Assessment and Plan: BP within acceptable range will hold antihypertensive medications for SBP<100 closely monitor BP (3) Afib Current Visit: No Status: Chronic Assessment and Plan: Rate better controlled at this time, pt was able to take Metoprolol and Cardizem this morning anticoagulated with heparin at this time Nephrology on board and evaluating patient daily for continuation of HD, pt may need HD manager intermediate, therefore will hold off starting coumadin in anticipation of placement of permacath If renal function remains stable over the weekend and no need for DIGITAL SALES ASSISTANT is warranted, then pt can be transitioned to coumadin therapy on Friday with possible discharge. (4) Acquired hypothyroidism Current Visit: No Status: Chronic Assessment and Plan: continue home meds (5) S/p nephrectomy Current Visit: No Status: Chronic Assessment and Plan: as per patient there is recurrence of the cancer at the nephrectomy site. (6) Metastatic renal cell carcinoma Current Visit: No Status: Chronic Assessment and Plan: continue home meds (7) Edema of both lower extremities Current Visit: Yes Status: Acute Assessment and Plan: DIGITAL SALES ASSISTANT as per nephrology (8) Acute kidney injury superimposed on chronic kidney disease Current Visit: No Status: Acute Assessment and Plan: Nephrology on board, evaluation appreciated continue DIGITAL SALES ASSISTANT as per nephrology (9) Constipation Current Visit: Yes Status: Acute Assessment and Plan: Senna plus 2tabs PO BID Miralax qdaily prn will provide suppository or enema support as needed (10) Hypokalemia Current Visit: Yes Status: Acute Assessment and Plan: K supplemented continue to monitor electrolytes and replace as needed DVT Prophylaxis: on heparin drip - Time Spent with Patient Total time spent is greater than 50% in coordination of care (as documented) at patient's floor/unit and/or counseling patient: Plan of Care Discussed with: patient (patient/RN/Family) Internal Medicine: Result - Labs CBC & Chem 7: 02/14/19 05:20 02/14/19 05:20 Labs: Short CBC 02/14/19 Range/Units 05:20 WBC 6.8 (4.3-11.1) K/mcL Hgb 7.1 L (11.5-15.4) g/dL Hct 23.0 L (35.3-44.9) % Plt Count 223 (140-400) K/mcL Neutrophils # 4.4 (1.6-8.9) K/mcL BMP 02/14/19 05:20 Sodium 137 Potassium 3.4 L Chloride 103 Carbon Dioxide 26 BUN 33 H Creatinine 2.77 H Glucose 97 Calcium 8.5 L - ABG Interpretation ABG results: PT/INR, D-dimer PT 12.9 Seconds (9.4-12.1) H 02/13/19 03:16 Consult Discharge Plan - Plan Referrals: Wade Waters MD [Primary Care Provider] - (patient will is going to rehab) ____ (1) Anemia Qualifiers: Anemia type: unspecified type Qualified Code(s): D64.9 - Anemia, unspecified (2) HTN (hypertension) Qualifiers: Hypertension type: essential hypertension Qualified Code(s): I10 - Essential (primary) hypertension (3) Afib Qualifiers: Atrial fibrillation type: chronic Qualified Code(s): I48.2 - Chronic atrial fibrillation (6) Metastatic renal cell carcinoma Qualifiers: Laterality: left Qualified Code(s): C64.2 - Malignant neoplasm of left kidney, except renal pelvis (9) Constipation Qualifiers: Constipation type: drug induced constipation Qualified Code(s): K59.03 - Drug induced constipation
[2019-02-14] MEDS: Cholecalciferol (D-3) 1,000 UNIT TABLET PO SCH (12:33)
[2019-02-14] MEDS: Heparin 25,000 UNIT/250 ML D5W 25,000 UNIT/250 ML IV.SOLN IVC SCH (14:07)
[2019-02-15 05:29] LABS: Hematocrit 22.9 % (35.3-44.9); Mean Corpuscular HGB Conc 30.6 g/dL (31.6-35.5); Mean Corpuscular Hemoglobin 27.1 pg (28.0-33.3); Mean Corpuscular Volume 88.8 fL (83.0-100.0); Mean Platelet Volume 8.5 fL (9.4-12.4); Platelet Count 243 K/mcL (140-400); Red Blood Count 2.58 M/mcL (3.82-4.97); Red Cell Distribution Width 18.9 % (11.5-14.5)
[2019-02-15 05:38] LABS: INR 1.2; Prothrombin Time 13.2 Seconds (9.4-12.1)
[2019-02-15 05:49] LABS: Calcium 8.5 mg/dL (8.6-10.3); Potassium 3.7 mEq/L (3.5-5.1)
[2019-02-15] MEDS ORDERED: 0.9 % Sodium Chloride 250 ML IVC PRN (06:54)
[2019-02-15] MEDS: Insulin LISPRO 300 UNITS/3 ML VIAL SQ SCH ×3 (07:39→16:05)
[2019-02-15] MEDS: Heparin 25,000 UNIT/250 ML D5W 25,000 UNIT/250 ML IV.SOLN IVC SCH (08:30)
[2019-02-15] MEDS: Aspirin Enteric Coated 81 MG Tablet PO SCH (08:53)
--- NOTE | 2019-02-15 10:41 | Nephrology Progress Note ---
Date of Encounter: 02/15/19 Time of Encounter: 09:00 - Assessment and Plan (1) THAD (acute kidney injury) Current Visit: Yes Status: Acute Renal function has been slowly declining over the past few days - SCr up to 3.00, GFR [address] today and then have HD afterward - Going forward will plan for out-patient HD twice weekly From a nephrology stand-point, the patient could be discharged after HD today Another option for anticoagulation would be renally dosed eliquis (2.5 mg twice daily) Follow renal protective strategy: daily weights, I/O's, and avoid other nephrotoxic agents if possible (2) Anemia Current Visit: Yes Status: Chronic Hgb 7.0 in the setting of low iron and CKD She received one treatment of IV iron (feraheme) and aranesp - she will be due for her second feraheme on Friday and this can be given at dialysis - will plan to continue aranesp as out-patient Will recheck H/H on Friday at dialysis as well Qualifiers: Anemia type: unspecified type Qualified Code(s): D64.9 - Anemia, unspecified (3) CKD (chronic kidney disease) stage 4, GFR 15-29 ml/min Current Visit: Yes Status: Chronic Baseline previously 20-30's, but now it appears her baseline in in the teens Will continue to follow her labs as an out-patient to establish her new baseline (4) CHF (congestive heart failure) Current Visit: Yes Status: Acute Qualifiers: Heart failure type: systolic Qualified Code(s): I50.20 - Unspecified systolic (congestive) heart failure (5) Metastatic renal cell carcinoma Current Visit: No Status: Chronic Qualifiers: Laterality: left Qualified Code(s): C64.2 - Malignant neoplasm of left kidney, except renal pelvis Subjective Principal diagnosis: THAD on CKD Interval history: Patient seen and examined. Reports she feels well today. She is sitting up in the chair. Denies worsening dyspnea. Reports her appetite is good. Denies confusion, N/V, or dysuria. She voiced consent to get a permacath today. Objective - Vital Signs Vital signs: Vital Signs Temp Pulse Resp BP Pulse Ox 02/15/19 06:56 98.3 F 100 16 97/61 98 02/15/19 03:48 98.6 F 94 16 101/57 98 02/14/19 23:25 98.9 F 95 16 131/83 99 02/14/19 19:48 99.6 F 99 16 125/88 99 02/14/19 15:34 98.1 F 88 16 115/79 98 02/14/19 10:46 98.0 F 87 17 104/73 98 Intake and Output 02/14/19 02/15/19 02/15/19 23:59 07:59 15:59 Intake Total 240 / 240 214 / 214 56 / 56 Output Total 850 / 850 300 / 300 Balance -610 / -610 214 / 214 -244 / -244 Intake: IV Fluids 214 / 56 / 56 Heparin 25,000 UNIT/250 ML D5W 214 / 214 56 / 56 25,000 unit In 250 ml @ 14 UNIT /KG/HR 13.832 mls/hr IVC . Q18H5M RAAD Rx#:[id number] Oral 240 / 240 0 / 0 Output: Urine 850 / 850 300 / 300 Other: Meal Dinner NPO Percent of Meal Consumed 85% 0% # Voids 2 Weight 97.8 kg Blood Glucose* 135 114 - General Appearance General appearance: Present: well-developed, well-nourished EENT: Present: ATNC, mucous membranes moist Neck: Present: supple Respiratory: Present: clear (but dimnished in left base) Cardiology: Present: edema (bilateral LE pitting edema), irregular rhythm Dialysis Vascular Access: Venous Catheter (right IJ - C/D/I, no erythema) Gastrointestinal: Present: normoactive bowel sounds, no tenderness Integumentary: Present: warm and dry, chronic venous stasis Neurologic: Present: no focal deficit Musculoskeletal: Present: no cyanosis Psychiatric: Present: mood/affect appropriate, cooperative - Lab 02/15/19 05:08 02/15/19 04:00 Most recent lab results Calcium 8.5 mg/dL (8.6-10.3) L 02/15/19 04:00 Phosphorus 5.1 mg/dL (2.7-4.5) H 02/14/19 05:20 Magnesium 2.0 mg/dL (1.6-2.6) 02/14/19 05:20 Consult Discharge Plan - Plan Referrals: Wade Waters MD [Primary Care Provider] - (patient will is going to rehab)
[2019-02-15] MEDS: *HR* Morphine Sulfate SR (12 HR) 15 MG TABLET.ER PO SCH ×2 (12:04→20:21)
[2019-02-15] MEDS: Cholecalciferol (D-3) 1,000 UNIT TABLET PO SCH (12:04)
[2019-02-15] MEDS ORDERED: Heparin 1,000 UNITS/500 mL 500 ML ONE (14:19)
--- NOTE | 2019-02-15 14:30 | Internal Med Progress Note ---
Hospitalist Progress Note - Encounter Date of Encounter: 02/15/19 Time of Encounter: 14:27 - Subjective Interval History: Pt seen and examined at bedside. Resting in bed and denies any discomfort. Scheduled for permacath placement today Will undergo HD today after permacath placement Social work on board for arrangement of outpatient HD Tentative d/c in am after arrangement of outpatient HD. Ten point ROS negative except as listed above - Exam Vitals: Temp Pulse Resp BP Pulse Ox 98.1 F 104 16 101/65 94 02/15/19 10:39 02/15/19 10:39 02/15/19 10:39 02/15/19 10:39 02/15/19 10:39 Exam: Gen.: No acute distress, alert and oriented 3, obese HEENT: EOMI, no scleral icterus, NC/AT Respiratory: Lungs are clear to auscultation bilaterally without any wheezing rhonchi or rales Cardiovascular: irregular rhythm, normal rate, no murmurs Abdomen: Soft, nontender and nondistended with normal bowel sounds Extremities: b/l LE edema Neuro: AAO x 3, no focal deficits - Assessment and Plan (1) Anemia Current Visit: Yes Status: Chronic Assessment and Plan: s/p EGD and colonoscopy on 02/09/2019, no acute bleeding reported Hgb: 7.0 today, no acute bleeding noted Nephrology on board and evaluating patient daily for continuation of HD, pt may need HD group home, therefore will hold off starting coumadin at this time and will continue Heparin gtt for anticoagulation at this time. IV iron and aranesp as per nephrology Monitor H&H and transfuse for Hgb<7 ferritin level consistent with anemia of chronic disease (2) HTN (hypertension) Current Visit: No Status: Chronic Assessment and Plan: BP within acceptable range will hold antihypertensive medications for SBP<100 closely monitor BP (3) Afib Current Visit: No Status: Chronic Assessment and Plan: Rate controlled with Metoprolol and Cardizem, will continue will initiate Eliquis 2.5mg PO BID for anticoagulation after placement of permacath today (4) Acquired hypothyroidism Current Visit: No Status: Chronic Assessment and Plan: continue home meds (5) S/p nephrectomy Current Visit: No Status: Chronic Assessment and Plan: as per patient there is recurrence of the cancer at the nephrectomy site. 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 (9) Constipation Current Visit: Yes Status: Acute Assessment and Plan: Senna plus 2tabs PO BID Miralax qdaily prn will provide suppository or enema support as needed (10) Hypokalemia Current Visit: Yes Status: Resolved Assessment and Plan: resolved continue to monitor electrolytes and replace as needed DVT Prophylaxis: will initiate Eliquis this evening - Time Spent with Patient Total time spent is greater than 50% in coordination of care (as documented) at patient's floor/unit and/or counseling patient: Plan of Care Discussed with: patient (patient/RN/financial sales consultant) Internal Medicine: Result - Labs CBC & Chem 7: 02/15/19 05:08 02/15/19 04:00 Labs: Short CBC 02/15/19 Range/Units 05:08 WBC 7.5 (4.3-11.1) K/mcL Hgb 7.0 L (11.5-15.4) g/dL Hct 22.9 L (35.3-44.9) % Plt Count 243 (140-400) K/mcL BMP 02/15/19 04:00 Sodium 137 Potassium 3.7 Chloride 102 Carbon Dioxide 25 BUN 39 H Creatinine 3.00 H Glucose 103 Calcium 8.5 L - ABG Interpretation ABG results: PT/INR, D-dimer PT 13.2 Seconds (9.4-12.1) H 02/15/19 04:00 Consult Discharge Plan - Plan Referrals: Wade Waters MD [Primary Care Provider] - (patient will is going to rehab) (1) Anemia Qualifiers: Anemia type: unspecified type Qualified Code(s): D64.9 - Anemia, unspecified (2) HTN (hypertension) Qualifiers: Hypertension type: essential hypertension Qualified Code(s): I10 - Essential (primary) hypertension (3) Afib Qualifiers: Atrial fibrillation type: chronic Qualified Code(s): I48.2 - Chronic atrial fibrillation (6) Metastatic renal cell carcinoma Qualifiers: Laterality: left Qualified Code(s): C64.2 - Malignant neoplasm of left ki dney, except renal pelvis (9) Constipation Qualifiers: Constipation type: drug induced constipation Qualified Code(s): K59.03 - Drug induced constipation
[2019-02-15] MEDS ORDERED: *HR* FentaNYL (PF) 100 MCG/2 ML VIAL IVP ONE (14:36)
[2019-02-15] MEDS ORDERED: ceFAZolin 2,000 MG in Water for inj. (sterile) 20 ML IVP ONE (14:36)
[2019-02-15] MEDS ORDERED: *HR* Midazolam HCl 2 MG/2 ML VIAL IVP ONE (14:36)
--- NOTE | 2019-02-15 14:37 | Pre-Sedation Evaluation ---
Pre-sedation evaluation - Pre-sedation checklist Date of procedure: 02/15/19 Procedure: permacath insert Recent Vitals: Last Vital Signs Temp 98.1 F 02/15/19 10:39 Pulse 104 02/15/19 10:39 Resp 16 02/15/19 10:39 BP 101/65 02/15/19 10:39 Pulse Ox 94 02/15/19 10:39 H&P (including ROS) documented in medical record: Yes Previous reaction to sedatives/anesthetics: No Dietary Status: NPO after Midnight Airway Assessment: Patient can open mouth completely, TMJ function normal, Micrognathia (under-bite, receding chin) absent, Neck with adequate range of motion Dentition: No loose teeth or bridges Possible difficult airway: No ASA Classification *see protocol: CLASS II-Mild systemic disease Plan of Care: Pt appropriate candidate for procedure/moderate/conscious sedation, Risks/benefits of procedure/sedation discussed w/ patient/family, If not NPO; Risk of intake outweiged by necessity to perform procedure Cardiac Registry (Cardio Only) - Clincal Frailty Scale Clinical Frailty Scale: Managing Well
[2019-02-15] MEDS ORDERED: 0.9 % Sodium Chloride 500 ML ONE (14:38)
[2019-02-15] MEDS: Sennosides/Docusate Sodium TABLET PO SCH ×2 (14:51→20:20)
[2019-02-15] MEDS ORDERED: CeFAZolin Premix DUPLEX 2,000 MG/50 ML BAG IVPB ONE (15:00)
--- NOTE | 2019-02-15 15:08 | IR Procedure Note ---
Date of procedure: 02/15/19 Consent Obtained: Written consent Timeout: Correct patient and procedure verified, Correct site verified, Time out performed, Skin prep completed Local anesthetic: Lidocaine 1% Indications: renal failure Procedure Performed: permacath Was there an patent legal assistant present: No Site/Technique: lt IJ to RA Results/Findings: adequate placement Estimated blood loss (cc): 2 Complications: None; Tolerated procedure well Post Procedure Treatment Plan: dialyze Specimen: none
[2019-02-15] MEDS: Diltiazem CD (24hr) 120 MG CAPSULE PO SCH (18:05)
[2019-02-15] MEDS: Furosemide 40 MG TABLET PO SCH (18:06)
[2019-02-15] MEDS: Apixaban 5 MG TABLET PO SCH (20:20)
[2019-02-16 05:34] LABS: Basophils # 0.1 K/mcL (0.0-0.2); Basophils % 0.7 %; Eosinophils # 0.1 K/mcL (0.0-0.6); Eosinophils % 1.1 %; Hematocrit 24.3 % (35.3-44.9); Hemoglobin 7.3 g/dL (11.5-15.4); Immature Granulocytes % 0.4 % (0-4); Lymphocytes % 13.2 %; Mean Corpuscular Hemoglobin 26.4 pg (28.0-33.3); Mean Corpuscular Volume 87.7 fL (83.0-100.0); Mean Platelet Volume 9.1 fL (9.4-12.4); Neutrophils # 5.2 K/mcL (1.6-8.9); Platelet Count 278 K/mcL (140-400); Red Blood Count 2.77 M/mcL (3.82-4.97); Red Cell Distribution Width 19.2 % (11.5-14.5); Segmented Neutrophils % 70.6 %
[2019-02-16 05:51] LABS: Calcium 8.7 mg/dL (8.6-10.3); Phosphorous 3.3 mg/dL (2.7-4.5); Potassium 3.8 mEq/L (3.5-5.1)
[2019-02-16] MEDS: Insulin LISPRO 300 UNITS/3 ML VIAL SQ SCH ×2 (07:37→11:24)
[2019-02-16] MEDS ORDERED: Diltiazem CD (24hr) 120 MG CAPSULE PO SCH (08:18)
[2019-02-16] MEDS: Sennosides/Docusate Sodium TABLET PO SCH (08:50)
[2019-02-16] MEDS: Furosemide 40 MG TABLET PO SCH (08:50)
[2019-02-16] MEDS: Apixaban 5 MG TABLET PO SCH (08:51)
[2019-02-16] MEDS: *HR* Morphine Sulfate SR (12 HR) 15 MG TABLET.ER PO SCH (08:51)
[2019-02-16] MEDS: Aspirin Enteric Coated 81 MG Tablet PO SCH (08:51)
--- NOTE | 2019-02-16 09:36 | Physician Discharge Referral ---
Home Health/Hosp Referral Info Transfer to: Home Health Provider in Charge Post Discharge: PCP - Diagnosis (1) Anemia Priority: Secondary Status: Chronic (2) HTN (hypertension) Priority: Secondary Status: Chronic (3) Afib Priority: Secondary Status: Chronic (4) Acquired hypothyroidism Priority: Secondary Status: Chronic (5) S/p nephrectomy Priority: Secondary Status: Chronic (6) Metastatic renal cell carcinoma Priority: Secondary Status: Chronic (7) Edema of both lower extremities Priority: Secondary Status: Acute (8) Acute kidney injury superimposed on chronic kidney disease Priority: Primary Status: Acute (9) Constipation Priority: Secondary Status: Acute (10) Hypokalemia Priority: Secondary Status: Resolved - Respiratory Orders Smoking Cessation: Smoking cessation has been advised. For more information, call the [place] Tobacco Quit Line at 4-130-QKNVNOW. - Services Needed Following services are medically necessary services: Nursing, Home Health Aide, Physical Therapy, Occupational Therapy - Transfer Medications Home Medications: Atorvastatin [Lipitor] 40 mg PO HS tablet 07/03/15 [Rx] Aspirin Enteric Coated [Aspirin EC] 81 mg PO DAILY 08/08/15 [History] Furosemide [Lasix] 40 mg PO DAILY 09/26/15 [History] Calcium Citrate/Vitamin D3 [Calcium Citrate-Vit D3 Tablet] 1 each PO DAILY 03/31/16 [History] Cholecalciferol (Vitamin D3) [Vitamin D3] 2,000 unit PO BID 03/31/16 [History] Glucosamine Sulfate Dipot Chlr [Glucosamine] 1,000 mg PO BID 03/31/16 [History] Vit C/Vit E/Lutein/Min/[place]-3 [Ocuvite Softgel] 1 each PO DAILY 03/21/17 [History] Oxybutynin Chloride [Ditropan Xl] 10 mg PO DAILY 05/12/17 [History] Mv W-Ca/Iron/FA/Lutein/Hrb#179 [Nik Multivit For Women Caplet] 1 each PO DAILY 07/25/18 [History] Pazopanib HCl [Votrient] 600 mg PO DAILY 09/30/18 [History] OxyCODONE Immed Rel [Roxicodone 5 MG] 5 mg PO Q6H PRN 01/19/19 [History] Docusate [Colace] 100 mg PO DAILY 01/26/19 [History] Omeprazole [PriLOSEC] 20 mg PO DAILY 01/26/19 [History] Ondansetron ODT [Zofran ODT] 4 mg SL Q8HR PRN 01/26/19 [History] Polyethylene Glycol 3350 [MiraLAX] 17 gm PO DAILY 01/26/19 [History] Vitamin A 10,000 unit PO DAILY 01/26/19 [History] Diltiazem CD (24hr) [Cardizem CD] 120 mg PO DAILY cap.er.24h 02/02/19 [Rx] Levothyroxine [Synthroid] 112 mcg PO 0630 02/03/19 [History] Metoprolol [Lopressor] 12.5 mg PO BID 02/03/19 [History] Morphine Sulfate [Arymo ER] 15 mg PO BID 02/03/19 [History] Apixaban [Eliquis] 2.5 mg PO BID tablet 02/16/19 [Rx] Allergies/Adverse Reactions: Allergy/AdvReac Type Severity Reaction Status Date / Time No Known Allergies Allergy Verified 09/30/18 17:52 Certification: Further, I certify that my clinical findings support that this patient is homebound (i.e. absences from home require considerable and taxing effort and are for medical reasons or yazidi services or infrequently or short duration when for other reasons) because: Homebound Reason: Patient requires assistance of a person or device to safely leave home Attestation: My signature below is to certify that this patient is under my care and that I, or nurse practitioner, or a physician's senior care assistant working with me, has a [id number]-hyrb encounter with this patient.
--- NOTE | 2019-02-16 09:46 | Discharge Summary ---
- NOTES TO OUTPATIENT PROVIDER Notes to Outpatient Provider: Pt was started on hemodialysis during this hospitalization. Her home dose of coumadin was discontinued and she was started on Eliquis for anticoagulation for Afib. Orders not resulted at time of discharge: Pending orders 02/17/19 04:00 Basic Metabolic Panel AM 0400 CBC no Diff [Complete Blood Count w/o Diff] [HEME] AM 04002/18/19 04:00 Basic Metabolic Panel AM 0400 CBC no Diff [Complete Blood Count w/o Diff] [HEME] AM 04002/19/19 04:00 Basic Metabolic Panel AM 0400 CBC no Diff [Complete Blood Count w/o Diff] [HEME] AM 0400 Date of Encounter: 02/16/19 Time of Encounter: 09:37 - Discharge Diagnosis (1) Anemia Priority: Secondary Status: Chronic Qualifiers: Anemia type: unspecified type Qualified Code(s): D64.9 - Anemia, unspecified (2) HTN (hypertension) Priority: Secondary Status: Chronic Qualifiers: Hypertension type: essential hypertension Qualified Code(s): I10 - Essential (primary) hypertension (3) Afib Priority: Secondary Status: Chronic Qualifiers: Atrial fibrillation type: chronic Qualified Code(s): I48.2 - Chronic atrial fibrillation (4) Acquired hypothyroidism Priority: Secondary Status: Chronic (5) S/p nephrectomy Priority: Secondary Status: Chronic (6) Metastatic renal cell carcinoma Priority: Secondary Status: Chronic Qualifiers: Laterality: left Qualified Code(s): C64.2 - Malignant neoplasm of left kidney, except renal pelvis (7) Edema of both lower extremities Priority: Secondary Status: Acute (8) Acute kidney injury superimposed on chronic kidney disease Priority: Primary Status: Acute (9) Constipation Priority: Secondary Status: Acute Assessment and Plan: pt to receive enema administration today prior to discharge Qualifiers: Constipation type: drug induced constipation Qualified Code(s): K59.03 - Drug induced constipation (10) Hypokalemia Priority: Secondary Status: Resolved Hospital course: Ms. Carpio is a 78 year old female with PMH of atrial fibrillation on anticoagulation, renal cell ca s/p nephrectomy with recurrence of tumor at the nephrectomy site, metastatic disease to the liver, CKD, HTN, CAD, and hypothyroidsim who was admitted for acute on chronic kidney injury. Pt was followed by nephrology and was started on temporary dialysis. Pt was noted to be anemic with concern for GI bleed due to which she underwent colonoscopy and endoscopy. GI workup was negative for acute bleeding. Pt's renal function continued to deteriorate due to which decision was made to start patient on manager terminal HD. Permacath was placed. kitchen and counter worker was consulted for arrangement of H D set up as outpatient. Pt's coumadin was discontinued and she was started on Eliquis for anticoagulation. Pt was evaluated by physical therapy and SNF was recommended. Pt refused SNF placement and wishes to return to home with home health services. Pt was seen and examined on the day of discharge. Pt denies any pain or discomfort at this time. Reported of persistent constipation for which enema administration has been ordered. Pt is medically stable for discharge to home with outpatient follow up with PCP and nephrology. Discharge pending arrangement of outpatient HD - Time Spent with Patient Total time spent providing and/or coordinating discharge services: Time spent: Greater than 30 minutes - Discharge Medications Prescriptions: New Apixaban [Eliquis] 2.5 mg PO BID tablet Continue Atorvastatin [Lipitor] 40 mg PO HS tablet Furosemide [Lasix] 40 mg PO DAILY Vit C/Vit E/Lutein/Min/[place]-3 [Ocuvite Softgel] 1 each PO DAILY Metoprolol [Lopressor] 12.5 mg PO BID Morphine Sulfate [Arymo ER] 15 mg PO BID Levothyroxine [Synthroid] 112 mcg PO 0630 Aspirin Enteric Coated [Aspirin EC] 81 mg PO DAILY Cholecalciferol (Vitamin D3) [Vitamin D3] 2,000 unit PO BID Glucosamine Sulfate Dipot Chlr [Glucosamine] 1,000 mg PO BID Calcium Citrate/Vitamin D3 [Calcium Citrate-Vit D3 Tablet] 1 each PO DAILY Oxybutynin Chloride [Ditropan Xl] 10 mg PO DAILY Mv W-Ca/Iron/FA/Lutein/Hrb#179 [Nik Multivit For Women Caplet] 1 each PO DAILY Pazopanib HCl [Votrient] 600 mg PO DAILY OxyCODONE Immed Rel [Roxicodone 5 MG] 5 mg PO Q6H PRN PRN Reason: Pain Ondansetron ODT [Zofran ODT] 4 mg SL Q8HR PRN PRN Reason: Nausea Omeprazole [PriLOSEC] 20 mg PO DAILY Docusate [Colace] 100 mg PO DAILY Polyethylene Glycol 3350 [MiraLAX] 17 gm PO DAILY Vitamin A 10,000 unit PO DAILY Diltiazem CD (24hr) [Cardizem CD] 120 mg PO DAILY cap.er.24h Discontinued Potassium Chloride [Klor-Con Sprinkle] 40 meq PO BIDWM Warfarin [Coumadin] 4 mg PO DAILY@1800 tablet Home Medications: Atorvastatin [Lipitor] 40 mg PO HS tablet 07/03/15 [Rx] Aspirin Enteric Coated [Aspirin EC] 81 mg PO DAILY 08/08/15 [History] Furosemide [Lasix] 40 mg PO DAILY 09/26/15 [History] Calcium Citrate/Vitamin D3 [Calcium Citrate-Vit D3 Tablet] 1 each PO DAILY 03/31/16 [History] Cholecalciferol (Vitamin D3) [Vitamin D3] 2,000 unit PO BID 03/31/16 [History] Glucosamine Sulfate Dipot Chlr [Glucosamine] 1,000 mg PO BID 03/31/16 [History] Vit C/Vit E/Lutein/Min/[place]-3 [Ocuvite Softgel] 1 each PO DAILY 03/21/17 [History] Oxybutynin Chloride [Ditropan Xl] 10 mg PO DAILY 05/12/17 [History] Mv W-Ca/Iron/FA/Lutein/Hrb#179 [Nik Multivit For Women Caplet] 1 each PO DAILY 07/25/18 [History] Pazopanib HCl [Votrient] 600 mg PO DAILY 09/30/18 [History] OxyCODONE Immed Rel [Roxicodone 5 MG] 5 mg PO Q6H PRN 01/19/19 [History] Docusate [Colace] 100 mg PO DAILY 01/26/19 [History] Omeprazole [PriLOSEC] 20 mg PO DAILY 01/26/19 [History] Ondansetron ODT [Zofran ODT] 4 mg SL Q8HR PRN 01/26/19 [History] Polyethylene Glycol 3350 [MiraLAX] 17 gm PO DAILY 01/26/19 [History] Vitamin A 10,000 unit PO DAILY 01/26/19 [History] Diltiazem CD (24hr) [Cardizem CD] 120 mg PO DAILY cap.er.24h 02/02/19 [Rx] Levothyroxine [Synthroid] 112 mcg PO 0630 02/03/19 [History] Metoprolol [Lopressor] 12.5 mg PO BID 02/03/19 [History] Morphine Sulfate [Arymo ER] 15 mg PO BID 02/03/19 [History] Apixaban [Eliquis] 2.5 mg PO BID tablet 02/16/19 [Rx] Allergies/Adverse Reactions: Allergy/AdvReac Type Severity Reaction Status Date / Time No Known Allergies Allergy Verified 09/30/18 17:52 Date of admission: 02/02/19 16:39 Primary care physician: Wade Waters MD Consults: 02/02/19 16:56 Consult to Occupational Therapy [CONS] Routine Comment: Evaluate, develop and implement POC Reason for Consult: generalized weakness Does patient have active BEDREST order?: No Is patient medically & hemodynamically stable?: Yes Consult to Physical Therapy [CONS] Routine Comment: Evaluate, develop and implement POC Reason for Consult: generalized weakness Does patient have active BEDREST order?: No Is patient medically & hemodynamically stable?: Yes 02/02/19 17:18 Consult to Nephrology [CONS] Routine Consulting Provider: Kidney Kalina/CHALO/FALGUNI/CARLIN Reason for Consult: worsening kidney function Call Completed: No 02/02/19 17:43 Consult to Diamond Powder Technician [CONS] Routine Reason for SW Consult: [facility], home oxygen (pt unsure of company) 02/03/19 09:43 Consult to Interventional Radiology [CONS] Routine Consulting Provider: Radiology Interventional Cols Reason for Consult: temporary HD catheter Time Notified: 09:45 Call Completed: Yes 02/03/19 10:00 Consult to Dialysis [CONS] ONCE 02/04/19 11:34 Consult to Gastroenterology [CONS] Routine Consulting Provider: Gastroenterology Kalina Reason for Consult: Acute on chronic anemia with positive FOBT Call Completed: Yes 02/05/19 13:15 Consult to Dialysis [CONS] ONCE 02/06/19 07:30 Consult to Dialysis [CONS] ONCE 02/08/19 08:30 Consult to Dialysis [CONS] ONCE 02/10/19 11:37 Consult to Diamond Powder Technician [CONS] Routine Reason for SW Consult: Outpatient HD chair time. 02/15/19 06:54 Consult to Interventional Radiology [CONS] Routine Consulting Provider: Radiology Interventional Cols Reason for Consult: Please place a Permacath and remove the temporary HD catheter Call Completed: No 02/15/19 07:00 Consult to Dialysis [CONS] ONCE Discharging clinician: Africa Hardin Anticipated date of discharge: 02/16/19 - Constitutional Vitals: Temp Pulse Resp BP Pulse Ox 98.7 F 80 16 108/76 96 02/16/19 06:45 02/16/19 06:45 02/16/19 06:45 02/16/19 06:45 02/16/19 06:45 Exam: Gen.: No acute distress, alert and oriented 3, obese HEENT: EOMI, no scleral icterus, NC/AT Respiratory: Lungs are clear to auscultation bilaterally without any wheezing rhonchi or rales Cardiovascular: irregular rhythm, normal rate, no murmurs Abdomen: Soft, nontender and nondistended with normal bowel sounds Extremities: b/l LE edema Neuro: AAO x 3, no focal deficits - Patient Status Disposition: Home Health Service Condition: Fair Functional capacity at discharge: uses cane/walker Overall status at discharge: patient is back to baseline - Discharge Instructions Follow Up With: Wade Waters MD [Primary Care Provider] - (patient will is going to rehab) Additional Instructions: 1. Please follow up with your primary care physician within five days after your discharge from the hospital. 2. Please continue hemodialysis as scheduled by your peoplesoft hr developer. 3. Your home dose of Coumadin has been discontinued. Eliquis 2.5mg twice a day has been added for anticoagulation. 4. Please seek medical help if you have difficulty breathing or if chest pain occurs. 5. Please closely monitor your blood pressure at home. Hold your home dose of Metoprolol, Cardizem, and Lasix if your systolic blood pressure is less than 100 6. Please resume all your home medications as prescribed by your primary care physician. - Diet and Activity Activity: as per physical therapy Diet: low fat, low cholesterol, low salt diet
[2019-02-16 10:42] VITALS: BP 104/73
[2019-02-16] MEDS: Cholecalciferol (D-3) 1,000 UNIT TABLET PO SCH (11:29)
== END 2019-02-16 13:56 | disposition home health service (06) | DRG 674 ==
LOC: SUATTDRO 16:39 → 2ANU 16:39
PROVIDERS: ADMIT Internal Medicine; ATTEND Internal Medicine
PROC: ENDOEBX (2019-02-09 13:45)
PROC: IRPERMA (2019-02-15 14:00)